=== PATIENT | male | born 1985 | race Caucasian/White ===

== ENCOUNTER 2016-10-11 07:44 | Emergency (ER) | payer BC, OTHER ==
[2016-10-11 07:48] VITALS: RESP 16
--- NOTE | 2016-10-11 08:38 | ED ---
Fall HPI - General Chief Complaint: Fall Stated Complaint: Seizure Time Seen by Provider: 10/11/16 08:02 Source: patient, EMS Mode of arrival: EMS - History of Present Illness Initial Comments: 30-year-old male patient with a past medical history significant for seizures presents to emergency department after experiencing a fall related to a seizure today. Patient generally has multiple seizures per day summer between 5 and 10 episodes. Today patient has had around 7 episodes. States that the seizures last anywhere from 15 seconds to 45 seconds. He states he did lose bladder control during one of the episodes. Last seizure patient was walking into the bathroom when the seizure began, he then fell forward hitting his face on a wooden chest. Seizure was done patient was conscious and alert. Does have a laceration to his right maxillary area. Patient is currently complaining of headache. He denies visual changes, dizziness, nausea, or vomiting. Has any chest pain, shortness of breath, weakness, diarrhea constipation, or urinary symptoms. States he has been taking his Vimpat and on the has directed. Recent illnesses or change in weight. His neurologist is from [place]. Patient has had multiple brain surgeries in the past in an attempt to find the cause of his seizures. Patient has a presurgical consultation scheduled sometime next week for another surgery. Patient admits to use of medical marijuana. Patient denies any recent alcohol or drug ingestion. - Related Data Home Medications Medication Instructions Recorded Confirmed Clobazam [Onfi] 15 mg PO BID 01/27/14 08/02/16 Albuterol Sulfate [Ventolin HFA] 2 puff INHALATION RT-Q4H PRN 11/10/14 08/02/16 Lacosamide [Vimpat] 200 mg PO AC-BID 08/02/16 08/02/16 Lacosamide [Vimpat] 400 mg PO HS 08/02/16 08/02/16 Pregabalin [Lyrica] 200 mg PO TID 08/02/16 08/02/16 clonazePAM [Clonazepam] 1 mg SUBLINGUAL Q4H PRN MDD 2 mg 08/02/16 08/02/16 Previous Rx's Medication Instructions Recorded Hydrocodone/Acetaminophen [[place] 1 tab PO Q6HR PRN #20 tab 10/11/16 5-325] Penicillin V Potassium [Pen Vee K] 500 mg PO QID #40 tab 10/11/16 Allergies Allergy/AdvReac Type Severity Reaction Status Date / Time levetiracetam [From Keppra] Allergy anger Verified 10/11/16 07:48 morphine Allergy palpitation Verified 10/11/16 07:48 s Review of Systems ROS Statement: Those systems with pertinent positive or pertinent negative responses have been documented in the HPI. ROS Other: All systems not noted in ROS Statement are negative. Past Medical History Past Medical History: Asthma, GERD/Reflux, Renal Disease, Seizure Disorder Additional Past Medical History / Comment(s): Nephrolithiasis, bilateral hand "knuckles fractured." History of Any Multi-Drug Resistant Organisms: None Reported Past Surgical History: No Surgical Hx Reported Additional Past Surgical History / Comment(s): 7 BRAIN SURGERIES incuding implants and impulse procedures done at [facility], bilateral myringotomy/tubes. Past Anesthesia/Blood Transfusion Reactions: No Reported Reaction Past Psychological History: Depression Additional Psychological History / Comment(s): Pt states his depression is stable. He resides with his mother. He has a 3 yr old tabby who he sees 4 times a week. Smoking Status: Current every day smoker Past Alcohol Use History: Occasional Past Drug Use History: Cocaine, Marijuana Additional Drug Use History / Comment(s): Pt states he smokes marijuana on occasion. He has past hx of cocaine use but none for years. - Past Family History Father Family Medical History: Myocardial Infarction ([place]) Additional Family Medical History / Comment(s): Father of a [place] at the age of 53 yrs. Mother Family Medical History: No Reported History General Exam Limitations: no limitations General appearance: alert, in no apparent distress Head exam: Present: other (Is in shape laceration noted over the right maxillary area approximately 2 and half centimeters in length) Eye exam: Present: normal appearance, PERRL Pupils: Present: normal accommodation ENT exam: Present: normal exam, normal oropharynx, mucous membranes moist, TM's normal bilaterally Neck exam: Present: normal inspection, full ROM. Absent: tenderness, meningismus, lymphadenopathy Respiratory exam: Present: normal lung sounds bilaterally. Absent: respiratory distress, wheezes, rales, rhonchi, chest wall tenderness Cardiovascular Exam: Present: regular rate, normal rhythm, normal heart sounds. Absent: bradycardia, tachycardia, irregular rhythm, systolic murmur, diastolic murmur, rubs, gallop GI/Abdominal exam: Present: soft, normal bowel sounds. Absent: distended, tenderness, guarding, rebound, rigid, organomegaly, mass Extremities exam: Present: normal inspection, full ROM, normal capillary refill. Absent: tenderness Back exam: Present: normal inspection, full ROM. Absent: tenderness, CVA tenderness (R), CVA tenderness (L) Neurological exam: Present: alert, oriented X3, CN II-XII intact Psychiatric exam: Present: normal affect, normal mood Skin exam: Present: warm, dry Course Vital Signs 10/11/16 07:45 Temperature 97.7 F Pulse Rate 85 Respiratory 16 Rate Blood Pressure 155/83 O2 Sat by Pulse 96 Oximetry Procedures - Laceration Laceration #1 Consent Obtained: verbal consent Time Out Performed: Yes Indication: laceration Site: face Size (cm): 3 Description: flap, clean Depth: simple, single layer Sedation/Analgesia: none Anesthetic Used: lidocaine 1% Anesthesia Technique: local infiltration Amount (mls): 5 Pre-repair: irrigated extensively Type of Sutures: nylon Size of Sutures: 6-0 Number of Sutures: 5 Technique: simple, interrupted Patient Tolerated Procedure: well, no complications Medical Decision Making - Medical Decision Making 30-year-old male present emergency department for seizure. Patient hasn't known history of seizures has multiple seizures every day. We did offer lab work, EKG though they declined at this time. Patient is taking his medications as directed. Patient's CT does not show any intracranial acute changes she has chronic changes. Patient has dental abscess noted on facial CT. Patient was started on antibiotics for this. Return parameters were discussed. His laceration was cleaned, closed with sutures. - Radiology Data Radiology results: report reviewed CT of the brain and C-spine revealed no acute intracranial abnormality. Stable extensive bifrontal craniotomy changes and left parietal craniectomy. Underlying left frontal lobe encephalomalacia is also unchanged. No acute fracture or malalignment of the cervical spine. Reversal of the normal cervical lordosis could be positional or due to muscle spasm. CT of the facial bones reveals extensive periodontal disease with large dental caries. Large focal periapical lucency/abscess involving the left mandibular first premolar eroding the anterior alveolar cortex. Second prominent periapical lucency/abscess involving the left maxillary first incisor which also erodes through the anterior alveolar cortex. Severe chronic right maxillary sinus disease. Disposition Clinical Impression: Seizure, Facial laceration, Dental abscess Disposition: HOME SELF-CARE Condition: Stable Instructions: Laceration (ED), Care For Your Stitches (ED) Additional Instructions: Have sutures removed in 7 days. Wash wound twice daily with soap and water.Please return to the Emergency Department if symptoms worsen or any other concerns. Prescriptions: Hydrocodone/Acetaminophen [[place] 5-325] 1 tab PO Q6HR PRN #20 tab PRN Reason: Pain Penicillin V Potassium [Pen Vee K] 500 mg PO QID #40 tab Referrals: Mazin Jay MD [Primary Care Provider] - 1-2 days
--- NOTE | 2016-10-11 09:13 | CT ---
EXAMINATION TYPE: CT brain blayneine wo con DATE OF EXAM: 10/11/2016 9:03 AM COMPARISON: 09/12/2015 HISTORY: 30-year-old male with seizures. History of 5-10 per day. Surgical history includes: titani um plates inserted. CT DLP: Head (1957.60) Body (363.40) mGycm Automated exposure control for dose reduction was used. Technique: Examination of the head was done in axial plane without intravenous contrast. Coronal and sagittal reconstructions performed. CT of the cervical spine was obtained in axial plane without intravenous injection of contrast mater ial. Coronal and sagittal reformatted images were obtained from the axial views for evaluation of f ractures, spinal alignment and canal. FINDINGS: Head: There is no evidence of acute intracranial hemorrhage, acute ischemic changes, mass, mass-effect, or extra-axial fluid collection. There is no effacement of cerebral sulci or basal subarachnoid cister ns. There is no hydrocephalus. There is no midline shift. Brooks-white matter distinction is preserv ed. Redemonstrated are extensive bifrontal craniotomy changes as well as left parietal craniectomy. Some packing material is again demonstrated along the frontal regions. Underlying area of encephalomalacia within the left frontal lobe is unchanged. Prominent cerumen within the left greater than right external auditory canals. Mastoid air cells well pneumatized. The facial bones will be reported separately. Cervical spine: The alignment of the cervical spine is normal on coronal and reformatted images. There is no cranial vertebral abnormality. Fracture of the cervical spine is not seen. Reversal of the normal cervical lo rdosis could be positional or due to muscle spasm. There is artifact from the patient's shoulders obs curing the spinal canal at the C6-C7 level and below. Within the visualized portions, there is no christal dence of focal disk herniation. There is no central spinal canal stenosis. Sagittal and coronal reformatted images confirm above findings. COMBINED IMPRESSION: 1. No acute intracranial abnormality seen. Stable extensive bifrontal craniotomy changes and left par ietal craniectomy. Underlying left frontal lobe encephalomalacia is also unchanged. 2. No acute fracture or malalignment of the cervical spine. Reversal of the normal cervical lordosis could be positional or due to muscle spasm.
--- NOTE | 2016-10-11 09:20 | CT ---
EXAMINATION TYPE: CT facial bones wo con DATE OF EXAM: 10/11/2016 9:03 AM COMPARISON: NONE HISTORY: 30-year-old male with pain TECHNIQUE: Contiguous high-resolution axial scanning of the facial bones without IV contrast. Coronal reconstructions performed. CT DLP: 1064.3 mGycm Automated exposure control for dose reduction was used. FINDINGS: There is a large periapical lucency involving the left mandibular first premolar eroding the anterior alveolar cortex. A second prominent periapical lucency is seen involving the left maxillary first incisor which also e rodes through the anterior alveolar cortex. Scattered prominent dental caries are present. Patient is partially dentulous. Chronic opacification of the right maxillary sinus. Trace mucosal thickening left maxillary sinus. Sc attered moderate mucosal thickening ethmoid air cells. No acute facial bone fracture seen. Orbits and globes appear intact. IMPRESSION: 1. EXTENSIVE PERIODONTAL DISEASE WITH LARGE DENTAL CARIES. 2. LARGE FOCAL PERIAPICAL LUCENCY/ABSCESS INVOLVING THE LEFT MANDIBULAR FIRST PREMOLAR ERODING THE AN TERIOR ALVEOLAR CORTEX. 3. SECOND PROMINENT PERIAPICAL LUCENCY/ABSCESS INVOLVING THE LEFT MAXILLARY FIRST INCISOR WHICH ALSO ERODES THROUGH THE ANTERIOR ALVEOLAR CORTEX. 4. SEVERE CHRONIC RIGHT MAXILLARY SINUS DISEASE.
[2016-10-11 09:57] VITALS: BP 119/56; PULSE 62; TEMP 97
== END 2016-10-11 09:57 | disposition home or self-care (01) ==
LOC: EC 07:44
DX: S01.81XA Laceration without foreign body of other part of head, initial encounter (principal); K04.7 Periapical abscess without sinus; J45.909 Unspecified asthma, uncomplicated; K21.9 Gastro-esophageal reflux disease without esophagitis; G40.909 Epilepsy, unspecified, not intractable, without status epilepticus; F32.9 Major depressive disorder, single episode, unspecified; F17.200 Nicotine dependence, unspecified, uncomplicated; Z79.899 Other long term (current) drug therapy; Z88.5 Allergy status to narcotic agent; Z88.8 Allergy status to other drugs, medicaments and biological substances; W01.198A Fall on same level from slipping, tripping and stumbling with subsequent striking against other object, initial encounter; Y93.01 Activity, walking, marching and hiking; Y92.89 Other specified places as the place of occurrence of the external cause
CPT/HCPCS: 12013; 70450; 70486; 72125; 99284

== ENCOUNTER 2016-10-16 08:39 | Emergency (ER) | payer OTHER ==
[2016-10-16 08:53] VITALS: PULSE 72
--- NOTE | 2016-10-16 09:59 | ED ---
Seizure HPI - General Chief Complaint: Seizure Stated Complaint: seizure Time Seen by Provider: 10/16/16 09:26 Source: patient, family, RN notes reviewed Mode of arrival: wheelchair Limitations: no limitations - History of Present Illness Initial Comments: Patient is a 30-year-old male presents to the emergency room for evaluation of recurrent seizures. Patient has a history of epilepsy. Patient was here 5 days ago due to a fall from a seizure. Patient states that he fell on his right cheek and received sutures. Patient states that he had a brain CT and facial CT and brain CT showed no acute intracranial bleeding. Patient's mother is present with patient. Patient's mother states that patient has been having more often recurrent seizures throughout the past few days. Patient's mother states that patient has been having multiple seizures starting at 2:30 in the morning. Patient states his last seizure was about an hour and a half ago. Patient's mother states that patient has been having a seizure about every few minutes. Patient's mother states this is not normal for patient. Patient's mother states that she is planning on taking patient to [facility] in [place] to see patients neurosurgeon today and have him admitted for further evaluation. Patient's mother states that she already called over to the hospital and they are expecting him later this afternoon. Patient states that he is still sore from his last injury 5 days ago. Patient denies any new injuries or head trauma. Patient states he takes his medications as directed daily. Patient denies any new medications or new doses of medications. - Related Data Home Medications Medication Instructions Recorded Confirmed Clobazam [Onfi] 15 mg PO BID 01/27/14 10/16/16 Albuterol Sulfate [Ventolin HFA] 2 puff INHALATION RT-Q4H PRN 11/10/14 10/16/16 Lacosamide [Vimpat] 200 mg PO DAILY@0800,1200 08/02/16 10/16/16 Lacosamide [Vimpat] 400 mg PO HS 08/02/16 10/16/16 Pregabalin [Lyrica] 200 mg PO TID 08/02/16 10/16/16 clonazePAM [Clonazepam] 1 mg SUBLINGUAL Q4H PRN MDD 2 mg 08/02/16 10/16/16 Previous Rx's Medication Instructions Recorded Hydrocodone/Acetaminophen [[place] 1 tab PO Q6HR PRN #20 tab 10/11/16 5-325] Penicillin V Potassium [Pen Vee K] 500 mg PO QID #40 tab 10/11/16 Allergies Allergy/AdvReac Type Severity Reaction Status Date / Time levetiracetam [From Kera] Allergy anger Verified 10/16/16 09:45 morphine Allergy palpitation Verified 10/16/16 09:45 s Review of Systems ROS Statement: Those systems with pertinent positive or pertinent negative responses have been documented in the HPI. ROS Other: All systems not noted in ROS Statement are negative. Past Medical History Past Medical History: Asthma, GERD/Reflux, Renal Disease, Seizure Disorder Additional Past Medical History / Comment(s): Nephrolithiasis, bilateral hand "knuckles fractured." History of Any Multi-Drug Resistant Organisms: None Reported Past Surgical History: No Surgical Hx Reported Additional Past Surgical History / Comment(s): 7 BRAIN SURGERIES incuding implants and impulse procedures done at [facility], bilateral myringotomy/tubes. Past Anesthesia/Blood Transfusion Reactions: No Reported Reaction Past Psychological History: Depression Additional Psychological History / Comment(s): Pt states his depression is stable. He resides with his mother. He has a 3 yr old tabby who he sees 4 times a week. Smoking Status: Current every day smoker Past Alcohol Use History: Occasional Past Drug Use History: Cocaine, Marijuana Additional Drug Use History / Comment(s): Pt states he smokes marijuana on occasion. He has past hx of cocaine use but none for years. - Past Family History Father Family Medical History: Myocardial Infarction ([place]) Additional Family Medical History / Comment(s): Father of a [place] at the age of 53 yrs. Mother Family Medical History: No Reported History General Exam - General Exam Comments Initial Comments: Sitting in exam room, no acute distress. Limitations: no limitations General appearance: alert, in no apparent distress Head exam: Present: normocephalic, normal inspection Expanded Head exam: Present: laceration (Healing laceration with sutures over the right cheekbone) Eye exam: Present: normal appearance, PERRL, EOMI Pupils: Present: normal accommodation ENT exam: Present: normal exam Neck exam: Present: normal inspection Respiratory exam: Present: normal lung sounds bilaterally. Absent: respiratory distress Cardiovascular Exam: Present: regular rate, normal rhythm, normal heart sounds Extremities exam: Present: normal inspection Back exam: Present: normal inspection Neurological exam: Present: alert, oriented X3, CN II-XII intact Psychiatric exam: Present: normal affect, normal mood Skin exam: Present: warm, dry, intact, normal color. Absent: rash Course Vital Signs 10/16/16 08:48 Temperature 97.8 F Pulse Rate 72 Respiratory 16 Rate Blood Pressure 123/83 O2 Sat by Pulse 96 Oximetry Medical Decision Making - Medical Decision Making Patient is a 30-year-old male presents emergency room for evaluation of recurrent seizures. Patient has not had one seizure since he has been here. Discussed repeat CT with patient and his mother. Patient declined repeat CT at this time and states that he will probably receive further imaging when he gets to [facility], in [place] in the afternoon. Patient's mother states that she is driving patient straight to [place] after patient is discharged from here. Patient and his mother state they understand everything that was discussed with them. Patient has no neuro deficits. Patient is stable and can be discharged. Return parameters discussed. Case discussed with Dr. Sorto. - Lab Data Result diagrams: 10/16/16 09:35 10/16/16 09:35 Lab Results 10/16/16 10/16/16 Range/Units 09:35 09:35 WBC 6.1 (3.8-10.6) k/uL RBC 4.87 (4.30-5.90) m/uL Hgb 15.4 (13.0-17.5) gm/dL Hct 45.5 (39.0-53.0) % MCV 93.4 (80.0-100.0) fL MCH 31.6 (25.0-35.0) pg MCHC 33.8 (31.0-37.0) g/dL RDW 13.7 (11.5-15.5) % Plt Count 242 (150-450) k/uL Neutrophils % 60 % Lymphocytes % 26 % Monocytes % 5 % Eosinophils % 5 % Basophils % 1 % Neutrophils # 3.7 (1.3-7.7) k/uL Lymphocytes # 1.6 (1.0-4.8) k/uL Monocytes # 0.3 (0-1.0) k/uL Eosinophils # 0.3 (0-0.7) k/uL Basophils # 0.0 (0-0.2) k/uL Sodium 144 (137-145) mmol/L Potassium 4.5 (3.5-5.1) mmol/L Chloride 104 (98-107) mmol/L Carbon Dioxide 31 H (22-30) mmol/L Anion Gap 9 mmol/L BUN 12 (9-20) mg/dL Creatinine 1.10 (0.66-1.25) mg/dL Est GFR (MDRD) Af Amer >60 (>60 ml/min/1.73 sqM) Est GFR (MDRD) Non-Af >60 (>60 ml/min/1.73 sqM) Glucose 91 (74-99) mg/dL Calcium 9.5 (8.4-10.2) mg/dL Total Bilirubin 0.4 (0.2-1.3) mg/dL AST 21 (17-59) U/L ALT 33 (21-72) U/L Alkaline Phosphatase 56 (38-126) U/L Total Protein 6.9 (6.3-8.2) g/dL Albumin 4.3 (3.5-5.0) g/dL Salicylates <1.0 mg/dL Acetaminophen <10.0 ug/mL Serum Alcohol <10 mg/dL 10/16/16 11:19 Normal sinus rhythm, ventricular rate 66 bpm, OR interval 146 ms, QRS duration 96 ms, QT/QTc 402/421 ms Disposition Clinical Impression: Epileptic seizure, Intractable seizure disorder Disposition: HOME SELF-CARE Condition: Good Instructions: Recurrent Seizures in Adults (ED) Additional Instructions: Please follow up with neurosurgeon. Continue taking prescribed medications as directed. If any new symptom arises or symptoms worsen, return to ER as soon as possible. Referrals: Mazin Jay MD [Primary Care Provider] - 1-2 days Time of Disposition: 11:07
[2016-10-16 10:06] LABS: Basophils % (A) 1 %; CHCM 35.5; Eosinophils # (A) 0.3 k/uL (0-0.7); Eosinophils % (A) 5 %; HCT 45.5 % (39.0-53.0); HDW 2.76; HGB 15.4 gm/dL (13.0-17.5); Luc # (Auto) 0.17; Luc % (Auto) 3; Lymphocytes # (A) 1.6 k/uL (1.0-4.8); Lymphocytes % (A) 26 %; MCH 31.6 pg (25.0-35.0); MCHC 33.8 g/dL (31.0-37.0); MCV 93.4 fL (80.0-100.0); Mean Platelet Volume 6.8; Monocytes # (A) 0.3 k/uL (0-1.0); Monocytes % (A) 5 %; Neutrophils # (A) 3.7 k/uL (1.3-7.7); Neutrophils % (A) 60 %; RBC 4.87 m/uL (4.30-5.90); RDW 13.7 % (11.5-15.5); WBC 6.1 k/uL (3.8-10.6); WBC (Perox) 6.06
[2016-10-16 10:14] LABS: ALT 33 U/L (21-72); AST 21 U/L (17-59); Acetaminophen <10.0 ug/mL; Alcohol <10 mg/dL; Alkaline Phosphatase 56 U/L (38-126); Anion Gap 9 mmol/L; Blood Urea Nitrogen 12 mg/dL (9-20); Calcium 9.5 mg/dL (8.4-10.2); Carbon Dioxide 31 mmol/L (22-30); Chloride 104 mmol/L (98-107); Glucose 91 mg/dL (74-99); Non-African American GFR(MDRD) >60 (>60 ml/min/1.73 sqM); Potassium 4.5 mmol/L (3.5-5.1); Salicylate <1.0 mg/dL; Sodium 144 mmol/L (137-145); Total Bilirubin 0.4 mg/dL (0.2-1.3); Total Protein 6.9 g/dL (6.3-8.2)
[2016-10-16 11:24] VITALS: BP 117/63; RESP 18; TEMP 97.1
== END 2016-10-16 11:25 | disposition home or self-care (01) ==
LOC: EC 08:39
DX: G40.919 Epilepsy, unspecified, intractable, without status epilepticus (principal); F32.9 Major depressive disorder, single episode, unspecified; F17.200 Nicotine dependence, unspecified, uncomplicated; Z79.899 Other long term (current) drug therapy; Z88.5 Allergy status to narcotic agent; Z88.8 Allergy status to other drugs, medicaments and biological substances
CPT/HCPCS: 36415; 80053; 80320; 80339; 80375; 83520; 85025; 93005; 99284

== ENCOUNTER 2016-12-24 07:38 | Emergency (ER) | payer OTHER ==
[2016-12-24] MEDS ORDERED: SODIUM CHLORIDE 0.9% 500 ML IV STA (07:44)
[2016-12-24] MEDS ORDERED: SODIUM CHLORIDE 0.9% 1,000 ML IV STA (07:44)
[2016-12-24 07:45] VITALS: TEMP 97.6
--- NOTE | 2016-12-24 07:46 | ED ---
Seizure HPI - General Chief Complaint: Seizure Stated Complaint: Seizure Time Seen by Provider: 12/24/16 07:38 Source: patient, RN notes reviewed Mode of arrival: EMS Limitations: no limitations - History of Present Illness Initial Comments: As this is a 31-year-old male with a history of seizure disorder and asthma who apparently has daily seizures but this morning he has seizures starting at about 6 AM and they would not stop. His mother gave him Klonopin it did not stop EMS was finally called he was given IV Versed is not any seizures since. Patient complains some generalized pain but no focal pain no headache blurry vision focal weakness nausea vomiting or other symptoms. No injuries were reported per EMS. MD Complaint: seizure - Related Data Home Medications Medication Instructions Recorded Confirmed Clobazam [Onfi] 15 mg PO BID 01/27/14 12/24/16 Albuterol Sulfate [Ventolin HFA] 2 puff INHALATION RT-Q4H PRN 11/10/14 12/24/16 Lacosamide [Vimpat] 200 mg PO DAILY@0800,1200 08/02/16 12/24/16 Lacosamide [Vimpat] 400 mg PO HS 08/02/16 12/24/16 Pregabalin [Lyrica] 200 mg PO TID 08/02/16 12/24/16 clonazePAM [Clonazepam] 1 mg SUBLINGUAL Q4H PRN MDD 2 mg 08/02/16 12/24/16 Divalproex Sodium [Depakote] 750 mg PO BID 12/24/16 12/24/16 Allergies Allergy/AdvReac Type Severity Reaction Status Date / Time levetiracetam [From [facility]] Allergy anger Verified 12/24/16 07:46 morphine Allergy palpitation Verified 12/24/16 07:46 s Review of Systems ROS Statement: Those systems with pertinent positive or pertinent negative responses have been documented in the HPI. ROS Other: All systems not noted in ROS Statement are negative. Past Medical History Past Medical History: Asthma, GERD/Reflux, Renal Disease, Seizure Disorder Additional Past Medical History / Comment(s): Nephrolithiasis, bilateral hand "knuckles fractured." History of Any Multi-Drug Resistant Organisms: None Reported Past Surgical History: Ear Surgery Additional Past Surgical History / Comment(s): 7 BRAIN SURGERIES incuding implants and impulse procedures done at [facility], bilateral myringotomy/tubes. Past Anesthesia/Blood Transfusion Reactions: No Reported Reaction Past Psychological History: Depression Additional Psychological History / Comment(s): Pt states his depression is stable. He resides with his mother. He has a 3 yr old tabby who he sees 4 times a week. Smoking Status: Current every day smoker Past Alcohol Use History: Occasional Past Drug Use History: Cocaine, Marijuana Additional Drug Use History / Comment(s): Pt states he smokes marijuana on occasion. He has past hx of cocaine use but none for years. - Past Family History Father Family Medical History: Myocardial Infarction ([place]) Additional Family Medical History / Comment(s): Father of a [place] at the age of 53 yrs. Mother Family Medical History: No Reported History General Exam - General Exam Comments Initial Comments: This is a well-developed well-nourished awake alert oriented times female Limitations: no limitations General appearance: alert, in no apparent distress Head exam: Present: atraumatic, normocephalic, normal inspection Eye exam: Present: normal appearance, PERRL, EOMI. Absent: scleral icterus, conjunctival injection, periorbital swelling ENT exam: Present: normal exam, mucous membranes moist Neck exam: Present: normal inspection. Absent: tenderness, meningismus, lymphadenopathy Respiratory exam: Present: normal lung sounds bilaterally. Absent: respiratory distress, wheezes, rales, rhonchi, stridor Cardiovascular Exam: Present: regular rate, normal rhythm, normal heart sounds. Absent: systolic murmur, diastolic murmur, rubs, gallop, clicks GI/Abdominal exam: Present: soft, normal bowel sounds. Absent: distended, tenderness, guarding, rebound, rigid Extremities exam: Present: normal inspection, full ROM, normal capillary refill. Absent: tenderness, pedal edema, joint swelling, calf tenderness Back exam: Present: normal inspection Neurological exam: Present: alert, oriented X3, CN II-XII intact Psychiatric exam: Present: normal affect, normal mood Skin exam: Present: warm, dry, intact, normal color. Absent: rash Course Vital Signs 12/24/16 12/24/16 07:41 07:52 Temperature 97.6 F 97.6 F Pulse Rate 77 75 Respiratory 18 16 Rate Blood Pressure 123/72 123/76 O2 Sat by Pulse 95 96 Oximetry - Reevaluation(s) Reevaluation #1: 12/24/16 07:46 The patient is a smoker we did discuss that he should stop smoking Medical Decision Making - Medical Decision Making The patient remains awake alert oriented 3 he was noted have a borderline potassium and subtherapeutic valproic acid level. He was given oral supplementation I did discuss the findings with him and his mother patient will be discharged is follow-up with his doctor and return when necessary - Lab Data Result diagrams: 12/24/16 07:48 12/24/16 07:48 Lab Results 12/24/16 12/24/16 12/24/16 Range/Units 07:48 07:48 07:48 WBC 5.1 (3.8-10.6) k/uL RBC 4.75 (4.30-5.90) m/uL Hgb 15.6 (13.0-17.5) gm/dL Hct 44.3 (39.0-53.0) % MCV 93.2 (80.0-100.0) fL MCH 32.7 (25.0-35.0) pg MCHC 35.1 (31.0-37.0) g/dL RDW 13.8 (11.5-15.5) % Plt Count 177 (150-450) k/uL Neutrophils % 57 % Lymphocytes % 28 % Monocytes % 7 % Eosinophils % 5 % Basophils % 0 % Neutrophils # 2.9 (1.3-7.7) k/uL Lymphocytes # 1.4 (1.0-4.8) k/uL Monocytes # 0.3 (0-1.0) k/uL Eosinophils # 0.3 (0-0.7) k/uL Basophils # 0.0 (0-0.2) k/uL Sodium 144 (137-145) mmol/L Potassium 3.5 (3.5-5.1) mmol/L Chloride 108 H (98-107) mmol/L Carbon Dioxide 25 (22-30) mmol/L Anion Gap 11 mmol/L BUN 13 (9-20) mg/dL Creatinine 0.95 (0.66-1.25) mg/dL Est GFR (MDRD) Af Amer >60 (>60 ml/min/1.73 sqM) Est GFR (MDRD) Non-Af >60 (>60 ml/min/1.73 sqM) Glucose 97 (74-99) mg/dL Calcium 9.1 (8.4-10.2) mg/dL Magnesium 2.0 (1.6-2.3) mg/dL Total Bilirubin 0.6 (0.2-1.3) mg/dL AST 37 (17-59) U/L ALT 42 (21-72) U/L Alkaline Phosphatase 46 (38-126) U/L Total Creatine Kinase 238 H (55-170) U/L CK-MB (CK-2) 1.2 (0.0-2.4) ng/mL CK-MB (CK-2) Rel Index 0.5 Total Protein 7.1 (6.3-8.2) g/dL Albumin 4.3 (3.5-5.0) g/dL Valproic Acid 48.3 ug/mL - EKG Data -: EKG Interpreted by Tn EKG shows normal: sinus rhythm Rate: bradycardia (Sinus bradycardia with a rate of 58 a DC interval 160 QRS duration 94 QT/QTC of 414/406 st-t wave changes.) Disposition Clinical Impression: Generalized seizure, Seizure secondary to subtherapeutic anticonvulsant medication Disposition: HOME SELF-CARE Condition: Good Instructions: Recurrent Seizures in Adults (ED) Referrals: Mazin Jay MD [Primary Care Provider] - 1-2 days
[2016-12-24 07:54] VITALS: RESP 16
[2016-12-24 08:21] LABS: Basophils % (A) 0 %; CHCM 35.6; Eosinophils # (A) 0.3 k/uL (0-0.7); Eosinophils % (A) 5 %; HCT 44.3 % (39.0-53.0); HDW 2.55; HGB 15.6 gm/dL (13.0-17.5); Luc # (Auto) 0.15; Luc % (Auto) 3; Lymphocytes # (A) 1.4 k/uL (1.0-4.8); Lymphocytes % (A) 28 %; MCH 32.7 pg (25.0-35.0); MCHC 35.1 g/dL (31.0-37.0); MCV 93.2 fL (80.0-100.0); Mean Platelet Volume 7.4; Monocytes # (A) 0.3 k/uL (0-1.0); Monocytes % (A) 7 %; Neutrophils # (A) 2.9 k/uL (1.3-7.7); Neutrophils % (A) 57 %; RBC 4.75 m/uL (4.30-5.90); RDW 13.8 % (11.5-15.5); WBC 5.1 k/uL (3.8-10.6); WBC (Perox) 4.87
[2016-12-24 08:45] LABS: Creatine Kinase MB 1.2 ng/mL (0.0-2.4)
[2016-12-24 09:08] LABS: ALT 42 U/L (21-72); AST 37 U/L (17-59); Alkaline Phosphatase 46 U/L (38-126); Anion Gap 11 mmol/L; Blood Urea Nitrogen 13 mg/dL (9-20); Calcium 9.1 mg/dL (8.4-10.2); Carbon Dioxide 25 mmol/L (22-30); Chloride 108 mmol/L (98-107); Glucose 97 mg/dL (74-99); Non-African American GFR(MDRD) >60 (>60 ml/min/1.73 sqM); Potassium 3.5 mmol/L (3.5-5.1); Sodium 144 mmol/L (137-145); Total Bilirubin 0.6 mg/dL (0.2-1.3); Total Protein 7.1 g/dL (6.3-8.2)
[2016-12-24] MEDS ORDERED: POTASSIUM CHLORIDE ER 20 MEQ TAB.ER PO STA (09:30)
[2016-12-24] MEDS ORDERED: DIVALPROEX 500 MG TABLET.DR PO STA (09:48)
[2016-12-24 10:08] VITALS: BP 109/58; PULSE 55
== END 2016-12-24 10:17 | disposition home or self-care (01) ==
LOC: EC 07:38
DX: G40.509 Epileptic seizures related to external causes, not intractable, without status epilepticus (principal); R52 Pain, unspecified; G40.909 Epilepsy, unspecified, not intractable, without status epilepticus; F32.9 Major depressive disorder, single episode, unspecified; F17.200 Nicotine dependence, unspecified, uncomplicated; Z79.899 Other long term (current) drug therapy; Z88.5 Allergy status to narcotic agent; Z88.8 Allergy status to other drugs, medicaments and biological substances
CPT/HCPCS: 36415; 80053; 80164; 82550; 82553; 83735; 85025; 93005; 96360; 96361; 99284

== ENCOUNTER 2017-01-14 07:33 | Emergency (ER) | payer OTHER ==
[2017-01-14 07:44] VITALS: TEMP 97.9
[2017-01-14] MEDS ORDERED: SODIUM CHLORIDE 0.9% 500 ML IV STA (08:13)
[2017-01-14] MEDS ORDERED: LORazepam 2 MG/ML SYRINGE IV STA (08:13)
--- NOTE | 2017-01-14 08:23 | ED ---
Seizure HPI - General Chief Complaint: Seizure Stated Complaint: Fall. Head Injury Time Seen by Provider: 01/14/17 08:10 Source: patient, RN notes reviewed Mode of arrival: ambulatory Limitations: no limitations - History of Present Illness Initial Comments: 31-year-old male presents to the emergency department with a chief complaint of seizure. Patient has had a history of seizures he has had multiple brain injuries and typically has one to 2 seizures a day. Patient states that today he hit his head when he was seizing they noticed within a noticed a flap without that he should be evaluated. Patient states he does have a headache at this time. Patient states she's having a seizure so doesn't know if he passed out or not. Patient states that it was much like his normal seizures. Patient denies any neck pain with this or any other discomfort. Patient states seems much like his typical seizure activity but due to the bleeding they thought that they should be evaluated. Patient denies any other pain or injury from this event. Patient denies any recent fever, chills, shortness of breath, chest pain, back pain, abdominal pain, nausea vomiting, numbness or tingling, dysuria or hematuria, constipation or diarrhea, visual changes, or any other current symptoms. - Related Data Home Medications Medication Instructions Recorded Confirmed Clobazam [Onfi] 15 mg PO BID 01/27/14 01/14/17 Albuterol Sulfate [Ventolin HFA] 2 puff INHALATION RT-Q4H PRN 11/10/14 01/14/17 Lacosamide [Vimpat] 200 mg PO DAILY@0800,1200 08/02/16 01/14/17 Lacosamide [Vimpat] 400 mg PO HS 08/02/16 01/14/17 Pregabalin [Lyrica] 200 mg PO TID 08/02/16 01/14/17 clonazePAM [Clonazepam] 1 mg SUBLINGUAL Q4H PRN MDD 2 mg 08/02/16 01/14/17 Divalproex Sodium [Depakote] 750 mg PO BID 12/24/16 01/14/17 Allergies Allergy/AdvReac Type Severity Reaction Status Date / Time brivaracetam [From Briviact] Allergy Unknown Verified 01/14/17 08:01 levetiracetam [From Keppra] Allergy anger Verified 01/14/17 08:01 morphine Allergy palpitation Verified 01/14/17 08:01 s Review of Systems ROS Statement: Those systems with pertinent positive or pertinent negative responses have been documented in the HPI. ROS Other: All systems not noted in ROS Statement are negative. Past Medical History Past Medical History: Asthma, GERD/Reflux, Renal Disease, Seizure Disorder Additional Past Medical History / Comment(s): Nephrolithiasis, bilateral hand "knuckles fractured." History of Any Multi-Drug Resistant Organisms: None Reported Past Surgical History: Ear Surgery Additional Past Surgical History / Comment(s): 7 BRAIN SURGERIES incuding implants and impulse procedures done at [facility], bilateral myringotomy/tubes. Past Anesthesia/Blood Transfusion Reactions: No Reported Reaction Past Psychological History: Depression Additional Psychological History / Comment(s): Pt states his depression is stable. He resides with his mother. He has a 3 yr old tabby who he sees 4 times a week. Smoking Status: Current every day smoker Past Alcohol Use History: Occasional Past Drug Use History: Cocaine, Marijuana Additional Drug Use History / Comment(s): Pt states he smokes marijuana on occasion. He has past hx of cocaine use but none for years. - Past Family History Father Family Medical History: Myocardial Infarction ([place]) Additional Family Medical History / Comment(s): Father of a [place] at the age of 53 yrs. Mother Family Medical History: No Reported History General Exam - General Exam Comments Initial Comments: General: The patient is awake and alert, in no distress, and does not appear acutely ill. Head: Patient appears to have a one centimeters laceration to the left forehead. Eye: Pupils are equal, round and reactive to light, extra-ocular movements are intact; there is normal conjunctiva bilaterally. No signs of icterus. Ears, nose, mouth and throat: There are moist mucous membranes and no oral lesions. Neck: The neck is supple, there is no tenderness. Cardiovascular: There is a regular rate and rhythm. No murmur, rub or gallop is appreciated. Respiratory: Lungs are clear to auscultation, respirations are non-labored, breath sounds are equal. No wheezes, stridor, rales, or rhonchi. Gastrointestinal: Soft, non-distended, non-tender abdomen without masses or organomegaly noted. There is no rebound or guarding present. No CVA tenderness. Bowel sounds are unremarkable. Back: There is no tenderness to palpation in the midline. There is no obvious deformity. No rashes noted. Musculoskeletal: Normal ROM, no tenderness, There is no pedal edema. There is no calf tenderness or swelling. Sensation intact. Pulses equal bilaterally 2+. Neurological: CN II-XII intact, There are no obvious motor or sensory deficits. Coordination appears grossly intact. Speech is normal. Skin: Skin is warm and dry and no rashes or lesions are noted. Psychiatric: Cooperative, appropriate mood & affect, normal judgment. Limitations: no limitations Course Vital Signs 01/14/17 07:38 Temperature 97.9 F Pulse Rate 85 Respiratory 20 Rate Blood Pressure 117/71 O2 Sat by Pulse 98 Oximetry Procedures - Procedures Initial comment: The skin was anesthetized with 1% lidocaine. The laceration was then cleansed with Betadine and irrigated with normal saline. The wound was inspected, and there was no evidence of injury to deep structures. No foreign body was noted in the wound. A total of 3 skin sutures were placed utilizing 6-0 nylon to a 2 cm flap laceration of the left forehead.. Medical Decision Making - Medical Decision Making 31-year-old male presents to the emergency department with a chief complaint of seizure. Patient has a history of seizures and states is much like his normal seizure activity. Patient is complaining of a headache that he did have head trauma during the seizure. At this time CAT scan is reviewed and negative laboratory otherwise well. This is typical of the patient's seizures activity. Patient went laceration repair. We discussed Follow-up return parameters and all patient's questions. He stated the Sameer they're in agreement with plan. They will be discharged. - Lab Data Result diagrams: 01/14/17 08:00 01/14/17 08:00 Lab Results 01/14/17 01/14/17 Range/Units 08:00 08:00 WBC 6.6 (3.8-10.6) k/uL RBC 4.91 (4.30-5.90) m/uL Hgb 16.1 (13.0-17.5) gm/dL Hct 47.3 (39.0-53.0) % MCV 96.3 (80.0-100.0) fL MCH 32.8 (25.0-35.0) pg MCHC 34.0 (31.0-37.0) g/dL RDW 14.5 (11.5-15.5) % Plt Count 247 (150-450) k/uL Neutrophils % 55 % Lymphocytes % 29 % Monocytes % 9 % Eosinophils % 4 % Basophils % 2 % Neutrophils # 3.6 (1.3-7.7) k/uL Lymphocytes # 1.9 (1.0-4.8) k/uL Monocytes # 0.6 (0-1.0) k/uL Eosinophils # 0.3 (0-0.7) k/uL Basophils # 0.1 (0-0.2) k/uL Sodium 143 (137-145) mmol/L Potassium 4.3 (3.5-5.1) mmol/L Chloride 104 (98-107) mmol/L Carbon Dioxide 30 (22-30) mmol/L Anion Gap 9 mmol/L BUN 17 (9-20) mg/dL Creatinine 1.10 (0.66-1.25) mg/dL Est GFR (MDRD) Af Amer >60 (>60 ml/min/1.73 sqM) Est GFR (MDRD) Non-Af >60 (>60 ml/min/1.73 sqM) Glucose 96 (74-99) mg/dL Calcium 9.8 (8.4-10.2) mg/dL Total Bilirubin 0.5 (0.2-1.3) mg/dL AST 25 (17-59) U/L ALT 38 (21-72) U/L Alkaline Phosphatase 52 (38-126) U/L Total Protein 7.7 (6.3-8.2) g/dL Albumin 4.7 (3.5-5.0) g/dL - Radiology Data Radiology results: report reviewed, image reviewed Disposition Clinical Impression: Seizure disorder, Forehead laceration Disposition: HOME SELF-CARE Condition: Stable Instructions: Recurrent Seizures in Adults (ED) Additional Instructions: Please use medication as discussed. Please follow up with family doctor if symptoms have not improved over the next two days. Please return to the emergency room if your symptoms increase or worsen or for any other concerns. Please return to the emergency room in 5 days to have sutures removed. Please leave wound covered for the first 24-48 hours and then leave open to air after that time. Please use clean soap and water to clean the suture area to prevent scabbing over the top of your sutures. Please watch for any signs of infection which may include but not limited to increased pain, swelling, redness, fever or chills. Please return to the emergency room if any signs of infection do occur. Please return to the emergency room for any other concerns or complications. Referrals: Mazin Jay MD [Primary Care Provider] - 1-2 days Time of Disposition: 09:18
[2017-01-14 08:32] LABS: Basophils # (A) 0.1 k/uL (0-0.2); Basophils % (A) 2 %; CH 33.3; CHCM 34.8; Eosinophils # (A) 0.3 k/uL (0-0.7); Eosinophils % (A) 4 %; HCT 47.3 % (39.0-53.0); HDW 2.57; HGB 16.1 gm/dL (13.0-17.5); Luc # (Auto) 0.15; Luc % (Auto) 2; Lymphocytes # (A) 1.9 k/uL (1.0-4.8); Lymphocytes % (A) 29 %; MCH 32.8 pg (25.0-35.0); MCV 96.3 fL (80.0-100.0); Mean Platelet Volume 7.4; Monocytes # (A) 0.6 k/uL (0-1.0); Monocytes % (A) 9 %; Neutrophils # (A) 3.6 k/uL (1.3-7.7); Neutrophils % (A) 55 %; RBC 4.91 m/uL (4.30-5.90); RDW 14.5 % (11.5-15.5); WBC 6.6 k/uL (3.8-10.6); WBC (Perox) 5.95
[2017-01-14 08:48] LABS: ALT 38 U/L (21-72); AST 25 U/L (17-59); Alkaline Phosphatase 52 U/L (38-126); Anion Gap 9 mmol/L; Blood Urea Nitrogen 17 mg/dL (9-20); Calcium 9.8 mg/dL (8.4-10.2); Carbon Dioxide 30 mmol/L (22-30); Chloride 104 mmol/L (98-107); Glucose 96 mg/dL (74-99); Non-African American GFR(MDRD) >60 (>60 ml/min/1.73 sqM); Potassium 4.3 mmol/L (3.5-5.1); Sodium 143 mmol/L (137-145); Total Bilirubin 0.5 mg/dL (0.2-1.3); Total Protein 7.7 g/dL (6.3-8.2)
--- NOTE | 2017-01-14 08:53 | CT ---
EXAMINATION TYPE: CT brain wo con DATE OF EXAM: 01/14/2017 COMPARISON: October 11, 2016 HISTORY: Seizure activity CT DLP: 1029.90 mGycm Automated exposure control for dose reduction was used. FINDINGS: No acute intracranial abnormality is seen. Redemonstrated extensive bifrontal craniotomy changes, left parietal craniectomy, underlying left fro ntal lobe encephalomalacia, and opacification of the right maxillary sinus. IMPRESSION: No acute intracranial hemorrhage, mass effect, or midline shift is seen.
[2017-01-14 09:31] VITALS: BP 105/64; PULSE 72; RESP 18
== END 2017-01-14 09:38 | disposition home or self-care (01) ==
LOC: EC 07:33
DX: S01.81XA Laceration without foreign body of other part of head, initial encounter (principal); G40.909 Epilepsy, unspecified, not intractable, without status epilepticus; K21.9 Gastro-esophageal reflux disease without esophagitis; F32.9 Major depressive disorder, single episode, unspecified; F17.200 Nicotine dependence, unspecified, uncomplicated; Z79.899 Other long term (current) drug therapy; Z88.5 Allergy status to narcotic agent; Z88.8 Allergy status to other drugs, medicaments and biological substances; W22.8XXA Striking against or struck by other objects, initial encounter
CPT/HCPCS: 12011 ×2; 96374 ×2; 99284 ×2; 12013; 96365; 96375; 99285; 36415; 80164; 80053; 85025; 70450; J2060; J1170

== ENCOUNTER 2017-01-14 12:25 | Emergency (ER) | payer OTHER ==
[2017-01-14] MEDS ORDERED: LORazepam 2 MG/ML SYRINGE IV STA (12:43)
[2017-01-14] MEDS ORDERED: LIDOCAINE/EPINEPHR/TETRACAINE 5 ML BOTTLE TOPICAL ONE (12:44)
--- NOTE | 2017-01-14 12:50 | ED ---
Seizure HPI - General Chief Complaint: Seizure Stated Complaint: seizure Time Seen by Provider: 01/14/17 12:38 Source: EMS, RN notes reviewed Mode of arrival: EMS Limitations: no limitations - History of Present Illness Initial Comments: 31-year-old male presents emergency Department with a chief complaint of right eyebrow injury. Patient had a seizure today much like his typical seizures and he hit his head on the bathroom floor. Patient states that he has no headache he denies any neck pain. He states he only has pain to the area where he hit his head. Patient states that he has had seizures for very long time and can figure out why he is having the seizures. patient states he has been using all his medications as prescribed. patient states she was concerned due to his continued seizures and head injury he thought that he should be evaluated. Patient denies any recent fever, chills, shortness of breath, chest pain, back pain, abdominal pain, nausea vomiting, numbness or tingling, dysuria or hematuria, constipation or diarrhea, headaches or visual changes, or any other current symptoms. - Related Data Home Medications Medication Instructions Recorded Confirmed Clobazam [Onfi] 15 mg PO BID 01/27/14 01/14/17 Albuterol Sulfate [Ventolin HFA] 2 puff INHALATION RT-Q4H PRN 11/10/14 01/14/17 Lacosamide [Vimpat] 200 mg PO DAILY@0800,1200 08/02/16 01/14/17 Lacosamide [Vimpat] 400 mg PO HS 08/02/16 01/14/17 Pregabalin [Lyrica] 200 mg PO TID 08/02/16 01/14/17 clonazePAM [Clonazepam] 1 mg SUBLINGUAL Q4H PRN MDD 2 mg 08/02/16 01/14/17 Divalproex Sodium [Depakote] 750 mg PO BID 12/24/16 01/14/17 Allergies Allergy/AdvReac Type Severity Reaction Status Date / Time brivaracetam [From Briviact] Allergy Unknown Verified 01/14/17 12:33 levetiracetam [From Keppra] Allergy anger Verified 01/14/17 12:33 morphine Allergy palpitation Verified 01/14/17 12:33 s Review of Systems ROS Statement: Those systems with pertinent positive or pertinent negative responses have been documented in the HPI. ROS Other: All systems not noted in ROS Statement are negative. Past Medical History Past Medical History: Asthma, GERD/Reflux, Renal Disease, Seizure Disorder Additional Past Medical History / Comment(s): Nephrolithiasis, bilateral hand "knuckles fractured." History of Any Multi-Drug Resistant Organisms: None Reported Past Surgical History: Ear Surgery Additional Past Surgical History / Comment(s): 7 BRAIN SURGERIES incuding implants and impulse procedures done at [facility], bilateral myringotomy/tubes. Past Anesthesia/Blood Transfusion Reactions: No Reported Reaction Past Psychological History: Depression Additional Psychological History / Comment(s): Pt states his depression is stable. He resides with his mother. He has a 3 yr old tabby who he sees 4 times a week. Smoking Status: Current every day smoker Past Alcohol Use History: Occasional Past Drug Use History: Cocaine, Marijuana Additional Drug Use History / Comment(s): Pt states he smokes marijuana on occasion. He has past hx of cocaine use but none for years. - Past Family History Father Family Medical History: Myocardial Infarction ([place]) Additional Family Medical History / Comment(s): Father of a [place] at the age of 53 yrs. Mother Family Medical History: No Reported History General Exam Limitations: no limitations General appearance: alert, in no apparent distress Head exam: Present: atraumatic, normocephalic. Absent: normal inspection (she appears patient has a 3 cm laceration above the right forehead multiple scars to the face. Previously sewn laceration to the left side of forehead) Eye exam: Present: normal appearance, PERRL, EOMI. Absent: scleral icterus, conjunctival injection, periorbital swelling ENT exam: Present: normal exam, mucous membranes moist Respiratory exam: Present: normal lung sounds bilaterally. Absent: respiratory distress, wheezes, rales, rhonchi, stridor Cardiovascular Exam: Present: regular rate, normal rhythm, normal heart sounds. Absent: systolic murmur, diastolic murmur, rubs, gallop, clicks Extremities exam: Present: normal inspection, full ROM, normal capillary refill. Absent: tenderness, pedal edema, joint swelling, calf tenderness Back exam: Present: normal inspection Neurological exam: Present: alert, oriented X3 Psychiatric exam: Present: normal affect, normal mood Course Vital Signs 06/01/14/17 01/14/17 12:26 13:57 15:02 Temperature 97.8 F Pulse Rate 65 68 50 L Respiratory 20 18 18 Rate Blood Pressure 123/58 112/70 124/84 O2 Sat by Pulse 98 97 95 Oximetry - Reevaluation(s) Reevaluation #1: 01/14/17 15:10 Patient continues have seizure-like episodes. They are consistent with pseudoseizures however when talking patient's neurologist with the patient's seizure-like activity. At this time medication was given. We will Transfer. Procedures - Procedures Initial comment: The skin was anesthetized with 1% lidocaine. The laceration was then cleansed with Betadine and irrigated with normal saline. The wound was inspected, and there was no evidence of injury to deep structures. No foreign body was noted in the wound. A total of 7 skin sutures were placed utilizing 6-0 nylon to a 3 cm laceration to the right eyebrow Medical Decision Making - Medical Decision Making 31-year-old male presents emergency Department chief complaint of seizure. At this time the case is discussed with patient's mother states he's had 30-40 seizures in the past few days. Patient's Depakote level is in appropriate range at this time. At this time we did call and speak with the patient's neurologist Dr. Padilla. At this time he is [facility] [place] He is requesting that we give the patient a dose of Depacon. He did request 1500 mg however when reviewing the patient's medication that he states he's been taking his only been taking 750 mg. At this time this is over the recommended maximum dose and I did talk until getting this dose. We did discuss with the doctor that he needs only gave half the dose that the doctor wanted we discussed the to get the additional dose when he arrives. They are in agreement with plan. The patient is in agreement with transfer. This time we will transfer the patient. - Lab Data Lab Results 01/14/17 Range/Units 13:15 Valproic Acid 59.5 ug/mL Disposition Clinical Impression: Epileptic seizure, Facial laceration Disposition: OTHER INSTITUTION NOT DEFINED Referrals: Mazin Jay MD [Primary Care Provider] - 1-2 days - Out of Hospital Transfer - Req. Specs Out of Hospital Transfer - Requested Specifics: Other Non-Acute (direct admission [facility])
[2017-01-14 14:08] VITALS: RESP 18
[2017-01-14] MEDS ORDERED: VALPROATE SODIUM 750 MG in SODIUM CHLORIDE 0.9% 50 ML IVPB STA (14:37)
[2017-01-14 15:05] VITALS: BP 124/84; PULSE 50
[2017-01-14] MEDS ORDERED: HYDROmorphone 1 MG/ML 1 ML SYRINGE IVP STA (16:29)
[2017-01-14 16:51] VITALS: TEMP 97.5
== END 2017-01-14 16:51 | disposition short-term general hospital (02) ==
LOC: EC 12:25
DX: S01.111A Laceration without foreign body of right eyelid and periocular area, initial encounter (principal); G40.909 Epilepsy, unspecified, not intractable, without status epilepticus; F32.9 Major depressive disorder, single episode, unspecified; F17.200 Nicotine dependence, unspecified, uncomplicated; Z79.899 Other long term (current) drug therapy; Z88.5 Allergy status to narcotic agent; Z88.8 Allergy status to other drugs, medicaments and biological substances; W22.09XA Striking against other stationary object, initial encounter; Y92.89 Other specified places as the place of occurrence of the external cause
CPT/HCPCS: 99285; 12013; 96365; 96375 ×2; 36415; 80164; J2060; J1170

== ENCOUNTER 2017-01-23 11:24 | Emergency (ER) | payer OTHER ==
[2017-01-23] MEDS ORDERED: SODIUM CHLORIDE 0.9% 1,000 ML IV STA (12:02)
[2017-01-23] MEDS ORDERED: HYDROmorphone 1 MG/ML 1 ML SYRINGE IVP STA (12:03)
--- NOTE | 2017-01-23 12:16 | ED ---
Seizure HPI - General Chief Complaint: Seizure Stated Complaint: seizures Time Seen by Provider: 01/23/17 11:32 Source: patient, EMS, RN notes reviewed Mode of arrival: EMS Limitations: no limitations - History of Present Illness Initial Comments: Patient is a 31-year-old male presents emergency room for evaluation of seizure. Patient has a long-standing history of recurrent seizures. Patient states while he was getting his daughter's car seat in the car he had a seizure , fell backwards hitting his back and head on the cement. Patient states he's had about 50-60 seizures today. Patient's mother is present with patient. Patient's mother states that patient has been on every type of seizure medication possible. Patient's mother states that he was transferred out to [place] about a week ago. Patient's mother states that patient was on Depakote but they discontinued it and placed patient on higher dose of Lyrica. Patient states he has multiple types of seizures per day. Patient states he has a history of tonic clonic seizures and focal seizures. Patient states he's having 8 out of 10 lower back pain. Patient states pain is worse when he presses over his lower back. Patient denies paresthesias. Patient denies fecal incontinence. Patient denies saddle anesthesia. Patient states having 9 out of 10 head pain. Patient states he has 2 large lumps the back of his head where he hit the cement. - Related Data Home Medications Medication Instructions Recorded Confirmed Clobazam [Onfi] 15 mg PO BID 01/27/14 01/23/17 Albuterol Sulfate [Ventolin HFA] 2 puff INHALATION RT-Q4H PRN 11/10/14 01/23/17 Lacosamide [Vimpat] 200 mg PO DAILY@0800,1200 08/02/16 01/23/17 Lacosamide [Vimpat] 400 mg PO HS 08/02/16 01/23/17 Pregabalin [Lyrica] 200 mg PO TID 08/02/16 01/23/17 clonazePAM [Clonazepam] 1 mg SUBLINGUAL Q4H PRN MDD 2 mg 08/02/16 01/23/17 Previous Rx's Medication Instructions Recorded HYDROcodone/APAP 5-325MG [Sh[place] 1 tab PO Q6HR PRN #12 tab 01/23/17 5-325] Allergies Allergy/AdvReac Type Severity Reaction Status Date / Time brivaracetam [From Briviact] Allergy Unknown Verified 01/23/17 11:45 levetiracetam [From Keppra] AdvReac anger Verified 01/23/17 11:45 morphine AdvReac palpitation Verified 01/23/17 11:45 s Review of Systems ROS Statement: Those systems with pertinent positive or pertinent negative responses have been documented in the HPI. ROS Other: All systems not noted in ROS Statement are negative. Past Medical History Past Medical History: Asthma, GERD/Reflux, Renal Disease, Seizure Disorder Additional Past Medical History / Comment(s): Nephrolithiasis, bilateral hand "knuckles fractured." History of Any Multi-Drug Resistant Organisms: None Reported Past Surgical History: Ear Surgery Additional Past Surgical History / Comment(s): 7 BRAIN SURGERIES incuding implants and impulse procedures done at [facility], bilateral myringotomy/tubes. Past Anesthesia/Blood Transfusion Reactions: No Reported Reaction Past Psychological History: Depression Smoking Status: Current every day smoker Past Alcohol Use History: Occasional Past Drug Use History: Cocaine, Marijuana - Past Family History Father Family Medical History: Myocardial Infarction ([place]) Additional Family Medical History / Comment(s): Father of a [place] at the age of 53 yrs. Mother Family Medical History: No Reported History General Exam - General Exam Comments Initial Comments: Sitting in exam room, no acute distress. Limitations: no limitations General appearance: alert, in no apparent distress Expanded Head exam: Present: hematoma (2 hematomas on the back of the scalp.) Eye exam: Present: normal appearance, PERRL, EOMI Pupils: Present: normal accommodation ENT exam: Present: normal exam Neck exam: Present: normal inspection, full ROM. Absent: tenderness, lymphadenopathy Respiratory exam: Present: normal lung sounds bilaterally. Absent: respiratory distress Cardiovascular Exam: Present: regular rate, normal rhythm, normal heart sounds Extremities exam: Present: normal inspection, full ROM. Absent: tenderness Back exam: Present: vertebral tenderness (Tenderness and swelling on palpating over thoracic and lumbosacral spine) Neurological exam: Present: alert, oriented X3 Expanded Patient oriented to: Present: person, place, time Speech: Present: fluid speech Cranial nerves: EOM's Intact: Normal Sensory exam: Upper Extremity Light Touch: Normal, Lower Extremity Light Touch: Normal Motor strength exam: RUE: 5, LUE: 5, RLE: 5, LLE: 5 Eye Response: (4) open spontaneously Motor Response: (6) obeys commands Verbal Response: (5) oriented Psychiatric exam: Present: normal affect, normal mood Skin exam: Present: warm, normal color Course Vital Signs 01/23/17 01/23/17 01/23/17 11:29 12:08 13:45 Temperature 97.5 F L 98.1 F Pulse Rate 67 72 53 L Respiratory 18 17 18 Rate Blood Pressure 166/108 122/77 130/85 O2 Sat by Pulse 92 L 99 94 L Oximetry 01/23/17 01/23/17 01/23/17 14:32 16:19 16:56 Temperature 98.5 F 98.2 F 97.6 F Pulse Rate 59 L 69 Respiratory 17 18 18 Rate Blood Pressure 160/99 109/57 O2 Sat by Pulse 97 95 95 Oximetry Medical Decision Making - Medical Decision Making Patient is a 31-year-old male presents to the emergency room for evaluation of seizure. Patient has a history of seizures. Patient had over 200 seizures today. Patient given 1 mg of Ativan with no relief of seizures. Brain/c-spine CT negative for any acute findings. Spinal x-rays negative for any acute findings. Patient's neurologist, Dr. Quinonez was contacted. Dr. Quinonez's nurse, Mattie return the phone call and was advised to give patient IV Depakote 1500 mg 1 time is to discharge patient home. Patient advised to call their office either this afternoon or tomorrow. Patient and mother state they understand everything that was discussed with them. Return parameters discussed. Case discussed Dr. Goetz. - Lab Data Result diagrams: 01/23/17 11:27 01/23/17 11:27 Lab Results 01/23/17 01/23/17 01/23/17 Range/Units 11:27 11:27 12:16 WBC 6.8 (3.8-10.6) k/uL RBC 4.82 (4.30-5.90) m/uL Hgb 15.6 (13.0-17.5) gm/dL Hct 46.5 (39.0-53.0) % MCV 96.5 (80.0-100.0) fL MCH 32.5 (25.0-35.0) pg MCHC 33.7 (31.0-37.0) g/dL RDW 14.3 (11.5-15.5) % Plt Count 224 (150-450) k/uL Neutrophils % 57 % Lymphocytes % 32 % Monocytes % 6 % Eosinophils % 2 % Basophils % 1 % Neutrophils # 3.9 (1.3-7.7) k/uL Lymphocytes # 2.2 (1.0-4.8) k/uL Monocytes # 0.4 (0-1.0) k/uL Eosinophils # 0.1 (0-0.7) k/uL Basophils # 0.0 (0-0.2) k/uL Sodium 144 (137-145) mmol/L Potassium 4.2 (3.5-5.1) mmol/L Chloride 109 H (98-107) mmol/L Carbon Dioxide 25 (22-30) mmol/L Anion Gap 10 mmol/L BUN 7 L (9-20) mg/dL Creatinine 0.88 (0.66-1.25) mg/dL Est GFR (MDRD) Af Amer >60 (>60 ml/min/1.73 sqM) Est GFR (MDRD) Non-Af >60 (>60 ml/min/1.73 sqM) Glucose 90 (74-99) mg/dL POC Glucose (mg/dL) 96 (75-99) mg/dL POC Glu Capacity Management Specialist ID Maday Lamas Calcium 9.5 (8.4-10.2) mg/dL Total Bilirubin 0.5 (0.2-1.3) mg/dL AST 30 (17-59) U/L ALT 37 (21-72) U/L Alkaline Phosphatase 51 (38-126) U/L Total Protein 7.3 (6.3-8.2) g/dL Albumin 4.5 (3.5-5.0) g/dL Urine Color Urine Appearance (Clear) Urine pH (5.0-8.0) Ur Specific [place] (1.001-1.035) Urine Protein (Negative) Urine Glucose (UA) (Negative) Urine Ketones (Negative) Urine Blood (Negative) Urine Nitrite (Negative) Urine Bilirubin (Negative) Urine Urobilinogen (<2.0) mg/dL Ur Leukocyte Esterase (Negative) Urine Opiates Screen (NotDetected) Ur Oxycodone Screen (NotDetected) Urine Methadone Screen (NotDetected) Ur Propoxyphene Screen (NotDetected) Ur Barbiturates Screen (NotDetected) U Tricyclic Antidepress (NotDetected) Ur Phencyclidine Scrn (NotDetected) Ur Amphetamines Screen (NotDetected) U Methamphetamines Scrn (NotDetected) U Benzodiazepines Scrn (NotDetected) Urine Cocaine Screen (NotDetected) U Marijuana (THC) Screen (NotDetected) 01/23/17 Range/Units 12:17 WBC (3.8-10.6) k/uL RBC (4.30-5.90) m/uL Hgb (13.0-17.5) gm/dL Hct (39.0-53.0) % MCV (80.0-100.0) fL MCH (25.0-35.0) pg MCHC (31.0-37.0) g/dL RDW (11.5-15.5) % Plt Count (150-450) k/uL Neutrophils % % Lymphocytes % % Monocytes % % Eosinophils % % Basophils % % Neutrophils # (1.3-7.7) k/uL Lymphocytes # (1.0-4.8) k/uL Monocytes # (0-1.0) k/uL Eosinophils # (0-0.7) k/uL Basophils # (0-0.2) k/uL Sodium (137-145) mmol/L Potassium (3.5-5.1) mmol/L Chloride (98-107) mmol/L Carbon Dioxide (22-30) mmol/L Anion Gap mmol/L BUN (9-20) mg/dL Creatinine (0.66-1.25) mg/dL Est GFR (MDRD) Af Amer (>60 ml/min/1.73 sqM) Est GFR (MDRD) Non-Af (>60 ml/min/1.73 sqM) Glucose (74-99) mg/dL POC Glucose (mg/dL) (75-99) mg/dL POC Glu Capacity Management Specialist ID Calcium (8.4-10.2) mg/dL Total Bilirubin (0.2-1.3) mg/dL AST (17-59) U/L ALT (21-72) U/L Alkaline Phosphatase (38-126) U/L Total Protein (6.3-8.2) g/dL Albumin (3.5-5.0) g/dL Urine Color Light Yellow Urine Appearance Clear (Clear) Urine pH 7.0 (5.0-8.0) Ur Specific [place] 1.004 (1.001-1.035) Urine Protein Negative (Negative) Urine Glucose (UA) Negative (Negative) Urine Ketones Negative (Negative) Urine Blood Negative (Negative) Urine Nitrite Negative (Negative) Urine Bilirubin Negative (Negative) Urine Urobilinogen <2.0 (<2.0) mg/dL Ur Leukocyte Esterase Negative (Negative) Urine Opiates Screen Not Detected (NotDetected) Ur Oxycodone Screen Not Detected (NotDetected) Urine Methadone Screen Not Detected (NotDetected) Ur Propoxyphene Screen Not Detected (NotDetected) Ur Barbiturates Screen Detected H (NotDetected) U Tricyclic Antidepress Not Detected (NotDetected) Ur Phencyclidine Scrn Not Detected (NotDetected) Ur Amphetamines Screen Not Detected (NotDetected) U Methamphetamines Scrn Not Detected (NotDetected) U Benzodiazepines Scrn Detected H (NotDetected) Urine Cocaine Screen Not Detected (NotDetected) U Marijuana (THC) Screen Detected H (NotDetected) 01/23/17 12:50 Normal sinus rhythm with sinus arrhythmia, ventricular rate 64 bpm, CT interval 144 ms, QRS duration 94 ms, QT/QTC 384/396 ms - Radiology Data Radiology results: report reviewed, image reviewed Disposition Clinical Impression: Epileptic seizure, Intractable seizure disorder, Head injury, Hematoma, Contusion of tissue overlying spine Disposition: HOME SELF-CARE Condition: Good Instructions: Head Injury (ED), Contusion in Adults (ED), Recurrent Seizures in Adults (ED), Hematoma (ED) Additional Instructions: Continue taking Lyrica as prescribed. Please follow-up with neurologist. If any new symptom arises or symptoms worsen, return to ER as soon as possible. Prescriptions: HYDROcodone/APAP 5-325MG [[place] 5-325] 1 tab PO Q6HR PRN #12 tab PRN Reason: Pain Referrals: Mazin Jay MD [Primary Care Provider] - 1-2 days Time of Disposition: 15:55
[2017-01-23 12:27] LABS: Appearance,Urine Clear (Clear); Bilirubin,Urine Negative (Negative); Glucose,Urine (UA) Negative (Negative); Ketones,Urine Negative (Negative); Leukocyte Esterase,Urine Negative (Negative); Nitrite,Urine Negative (Negative); Protein,Urine Negative (Negative); Specific Gravity,Urine 1.004 (1.001-1.035); UA Billing (MACRO vs. MICRO) CHEM; Urobilinogen,Urine <2.0 mg/dL (<2.0)
[2017-01-23 12:27] LABS: Glucose,Whole Blood 96 mg/dL (75-99)
[2017-01-23 12:32] LABS: Basophils % (A) 1 %; CH 33.7; CHCM 35.1; Eosinophils # (A) 0.1 k/uL (0-0.7); Eosinophils % (A) 2 %; HCT 46.5 % (39.0-53.0); HDW 2.66; HGB 15.6 gm/dL (13.0-17.5); Luc # (Auto) 0.16; Luc % (Auto) 2; Lymphocytes # (A) 2.2 k/uL (1.0-4.8); Lymphocytes % (A) 32 %; MCH 32.5 pg (25.0-35.0); MCHC 33.7 g/dL (31.0-37.0); MCV 96.5 fL (80.0-100.0); Mean Platelet Volume 7.8; Monocytes # (A) 0.4 k/uL (0-1.0); Monocytes % (A) 6 %; Neutrophils # (A) 3.9 k/uL (1.3-7.7); Neutrophils % (A) 57 %; RBC 4.82 m/uL (4.30-5.90); RDW 14.3 % (11.5-15.5); WBC 6.8 k/uL (3.8-10.6); WBC (Perox) 6.77
[2017-01-23 12:34] LABS: ALT 37 U/L (21-72); AST 30 U/L (17-59); Alkaline Phosphatase 51 U/L (38-126); Anion Gap 10 mmol/L; Blood Urea Nitrogen 7 mg/dL (9-20); Calcium 9.5 mg/dL (8.4-10.2); Carbon Dioxide 25 mmol/L (22-30); Chloride 109 mmol/L (98-107); Glucose 90 mg/dL (74-99); Non-African American GFR(MDRD) >60 (>60 ml/min/1.73 sqM); Potassium 4.2 mmol/L (3.5-5.1); Sodium 144 mmol/L (137-145); Total Bilirubin 0.5 mg/dL (0.2-1.3); Total Protein 7.3 g/dL (6.3-8.2)
--- NOTE | 2017-01-23 13:24 | CT ---
EXAMINATION TYPE: CT brain virgen wo con DATE OF EXAM: 01/23/2017 COMPARISON: 01/14/2017 HISTORY: Multiple seizures and injuries today with visual disturbance CT DLP: 1845 mGycm, Automated exposure control for dose reduction was used. CONTRAST: None CT of the brain is performed utilizing 3 mm thick sections through the posterior fossa and 3 mm thick sections through the remaining calvarium. Study is performed within 24 hours of arrival to the hospital. No abnormal hyperdensity is present to suggest an acute intracranial hemorrhage. No mass lesion is evident. No acute infarcts are evident. There is some encephalomalacia of the left frontal lobe. Stable from 01/14/2017. Prior left frontal craniotomy is evident. Ventricles and sulci are appropriate for the patient age. There is opacification of the right maxillary sinus. Some left mid ethmoid air cell opacification is present. Mastoid air cells are clear. There is prior craniotomy in the left parietal-occipital region . IMPRESSIONS: 1. Postsurgical changes. No acute intracranial process is evident. Encephalomalacia of the left front al lobe is present. CT cervical spine. COMPARISON: None CT of the cervical spine is performed in the axial plane at 2 mm thick sections. Reconstructed image s in the coronal, and sagittal plane are reviewed on the computer. No acute fractures are evident. There is a kyphosis centered at approximately C3-4. Disc height and vertebral body heights are preser venkatesh. No spinal canal stenosis is evident. No neural foraminal stenosis is evident. IMPRESSIONS: 1. Mild kyphosis. 2. No acute osseous abnormality.
[2017-01-23] MEDS ORDERED: LORazepam 2 MG/ML SYRINGE IV STA (13:31)
--- NOTE | 2017-01-23 13:55 | XR ---
EXAM TYPE: Thoracic spine and lumbar spine x-ray COMPARISON: NONE HISTORY: Pain TECHNIQUE: 3 views of the thoracic spine and 5 views of the lumbar spine submitted FINDINGS: Alignment is anatomic. The pedicles are intact. The transverse processes are intact. There is no s pondylolysis or spondylolisthesis. Slight curvature of the spine noted in the thoracic region. Could be positional correlate with clinic al exam. Disc interspace and vertebral body height appears be preserved at all levels. IMPRESSION: 1. No acute process.
[2017-01-23] MEDS ORDERED: VALPROATE SODIUM 1,500 MG in SODIUM CHLORIDE 0.9% 50 ML IVPB STA (14:59)
[2017-01-23 16:20] VITALS: BP 109/57; RESP 18
[2017-01-23 16:58] VITALS: PULSE 69; TEMP 97.6
== END 2017-01-23 16:58 | disposition home or self-care (01) ==
LOC: EC 11:24
DX: S00.03XA Contusion of scalp, initial encounter (principal); S20.20XA Contusion of thorax, unspecified, initial encounter; S30.0XXA Contusion of lower back and pelvis, initial encounter; F17.200 Nicotine dependence, unspecified, uncomplicated; G40.909 Epilepsy, unspecified, not intractable, without status epilepticus; Z88.5 Allergy status to narcotic agent; Z88.8 Allergy status to other drugs, medicaments and biological substances; Z79.899 Other long term (current) drug therapy; W01.198A Fall on same level from slipping, tripping and stumbling with subsequent striking against other object, initial encounter
CPT/HCPCS: 99285; 96365; 96375 ×2; 96361; 36415; 93005; 80053; 85025; 81003; 80306; 72072; 72110; 72125; 70450; J2060; J1170

== ENCOUNTER 2017-08-02 18:49 | Emergency (ER) | payer OTHER ==
[2017-08-02 19:01] VITALS: RESP 18
[2017-08-02] MEDS ORDERED: ALBUTEROL NEBULIZED 2.5 MG/3 ML INHALATION STA (19:15)
--- NOTE | 2017-08-02 19:19 | ED ---
Seizure HPI - General Chief Complaint: Seizure Stated Complaint: Seizure Time Seen by Provider: 08/02/17 18:51 Source: patient, EMS, RN notes reviewed Mode of arrival: EMS Limitations: no limitations - History of Present Illness Initial Comments: This a 31-year-old male presents emergency Department chief complaint seizure, shortness of breath. Patient states she has a long history of seizures is inspected age 15. Patient states that his been diagnosed epileptic though he has evolving seizures. He states that he seen several neurologists and neurosurgeons. He's had experimental procedures and states that they have not been able to figure out. Patient is on multiple medications. Patient states that he normally has seizures but they seem to be worse today and he primary complaint of shortness of breath. He had an episode that lasted about 2030 seconds where he cannot get a breath in. He states he does have asthma. Patient also states that he smoked marijuana today because he did help to seizures. Patient denies any focal weakness, blurred vision, nausea, vomiting diarrhea constipation. - Related Data Home Medications Medication Instructions Recorded Confirmed Clobazam [Onfi] 15 mg PO BID 01/27/14 08/02/17 Albuterol Sulfate [Ventolin HFA] 2 puff INHALATION RT-Q4H PRN 11/10/14 08/02/17 Lacosamide [Vimpat] 200 mg PO HS 08/02/16 08/02/17 Pregabalin [Lyrica] 200 mg PO TID 08/02/16 08/02/17 clonazePAM [Clonazepam] 1 mg SUBLINGUAL Q4H PRN MDD 2 mg 08/02/16 08/02/17 Lacosamide [Vimpat] 100 mg PO BID 08/02/17 08/02/17 Allergies Allergy/AdvReac Type Severity Reaction Status Date / Time brivaracetam [From Briviact] Allergy Unknown Verified 08/02/17 19:08 levetiracetam [From Keppra] AdvReac anger Verified 08/02/17 19:08 morphine AdvReac palpitation Verified 08/02/17 19:08 s Review of Systems ROS Statement: Those systems with pertinent positive or pertinent negative responses have been documented in the HPI. ROS Other: All systems not noted in ROS Statement are negative. Past Medical History Past Medical History: Asthma, GERD/Reflux, Renal Disease, Seizure Disorder Additional Past Medical History / Comment(s): Nephrolithiasis, bilateral hand "knuckles fractured." History of Any Multi-Drug Resistant Organisms: None Reported Past Surgical History: Ear Surgery Additional Past Surgical History / Comment(s): 7 BRAIN SURGERIES incuding implants and impulse procedures done at [facility], bilateral myringotomy/tubes. Past Anesthesia/Blood Transfusion Reactions: No Reported Reaction Past Psychological History: Depression Smoking Status: Current every day smoker Past Alcohol Use History: Occasional Past Drug Use History: Cocaine, Marijuana - Past Family History Father Family Medical History: Myocardial Infarction ([place]) Additional Family Medical History / Comment(s): Father of a [place] at the age of 53 yrs. Mother Family Medical History: No Reported History General Exam Limitations: no limitations General appearance: alert, in no apparent distress Head exam: Present: atraumatic, normocephalic, normal inspection Eye exam: Present: normal appearance, PERRL, EOMI. Absent: scleral icterus, conjunctival injection, periorbital swelling ENT exam: Present: normal exam, mucous membranes moist, TM's normal bilaterally , normal external ear exam. Absent: normal oropharynx (No dentition) Neck exam: Present: normal inspection, full ROM. Absent: tenderness, meningismus, lymphadenopathy Respiratory exam: Present: wheezes. Absent: respiratory distress, rales, rhonchi, stridor Cardiovascular Exam: Present: regular rate, normal rhythm, normal heart sounds. Absent: systolic murmur, diastolic murmur, rubs, gallop, clicks Neurological exam: Present: alert, oriented X3, CN II-XII intact, reflexes normal. Absent: motor sensory deficit Skin exam: Present: warm, dry, intact, normal color. Absent: rash Course Vital Signs 08/02/17 08/02/17 08/02/17 18:54 19:43 19:50 Temperature 97.6 F Pulse Rate 81 76 78 Respiratory 18 18 18 Rate Blood Pressure 114/81 O2 Sat by Pulse 98 Oximetry 08/02/17 20:50 Temperature 97.7 F Pulse Rate 85 Respiratory 18 Rate Blood Pressure 110/66 O2 Sat by Pulse 99 Oximetry Medical Decision Making - Medical Decision Making 31-year-old male presented for seizure. Patient has history of seizures and is on current medications. Patient complains of shortness breath was secondary to his smoking. Patient feels better after albuterol treatment x-rays negative. Patient we discharged advised follow-up with neurologist. - Lab Data Result diagrams: 08/02/17 19:06 08/02/17 19:06 Lab Results 08/02/17 08/02/17 Range/Units 19:06 19:06 WBC 8.5 (3.8-10.6) k/uL RBC 4.74 (4.30-5.90) m/uL Hgb 15.2 (13.0-17.5) gm/dL Hct 45.0 (39.0-53.0) % MCV 95.1 (80.0-100.0) fL MCH 32.0 (25.0-35.0) pg MCHC 33.6 (31.0-37.0) g/dL RDW 15.5 (11.5-15.5) % Plt Count 206 (150-450) k/uL Neutrophils % 63 % Lymphocytes % 27 % Monocytes % 5 % Eosinophils % 3 % Basophils % 0 % Neutrophils # 5.3 (1.3-7.7) k/uL Lymphocytes # 2.3 (1.0-4.8) k/uL Monocytes # 0.4 (0-1.0) k/uL Eosinophils # 0.2 (0-0.7) k/uL Basophils # 0.0 (0-0.2) k/uL Sodium 144 (137-145) mmol/L Potassium 4.0 (3.5-5.1) mmol/L Chloride 105 (98-107) mmol/L Carbon Dioxide 30 (22-30) mmol/L Anion Gap 9 mmol/L BUN 11 (9-20) mg/dL Creatinine 1.05 (0.66-1.25) mg/dL Est GFR (MDRD) Af Amer >60 (>60 ml/min/1.73 sqM) Est GFR (MDRD) Non-Af >60 (>60 ml/min/1.73 sqM) Glucose 98 (74-99) mg/dL Calcium 9.7 (8.4-10.2) mg/dL Total Bilirubin 0.2 (0.2-1.3) mg/dL AST 20 (17-59) U/L ALT 34 (21-72) U/L Alkaline Phosphatase 60 (38-126) U/L Total Protein 7.1 (6.3-8.2) g/dL Albumin 4.4 (3.5-5.0) g/dL - EKG Data EKG Comments: EKG performed at 19:32 and normal sinus rhythm with rate 66 [place] 152 QRS 98 QT/ QTC 382/400 Disposition Clinical Impression: Seizure disorder, Focal seizure Disposition: HOME SELF-CARE Condition: Stable Instructions: Recurrent Seizures in Adults (ED) Additional Instructions: Please return to the Emergency Department if symptoms worsen or any other concerns. Referrals: Mazin Jay MD [Primary Care Provider] - 1-2 days Time of Disposition: 21:18
[2017-08-02 19:25] LABS: Basophils % (A) 0 %; Eosinophils # (A) 0.2 k/uL (0-0.7); Eosinophils % (A) 3 %; HGB 15.2 gm/dL (13.0-17.5); Lymphocytes # (A) 2.3 k/uL (1.0-4.8); Lymphocytes % (A) 27 %; MCHC 33.6 g/dL (31.0-37.0); MCV 95.1 fL (80.0-100.0); Mean Platelet Volume 8.1; Monocytes # (A) 0.4 k/uL (0-1.0); Monocytes % (A) 5 %; Neutrophils # (A) 5.3 k/uL (1.3-7.7); Neutrophils % (A) 63 %; Platelet Count 206 k/uL (150-450); RBC 4.74 m/uL (4.30-5.90); RDW 15.5 % (11.5-15.5); WBC 8.5 k/uL (3.8-10.6)
[2017-08-02 19:35] LABS: ALT 34 U/L (21-72); AST 20 U/L (17-59); Albumin 4.4 g/dL (3.5-5.0); Alkaline Phosphatase 60 U/L (38-126); Anion Gap 9 mmol/L; Blood Urea Nitrogen 11 mg/dL (9-20); Calcium 9.7 mg/dL (8.4-10.2); Carbon Dioxide 30 mmol/L (22-30); Chloride 105 mmol/L (98-107); Glucose 98 mg/dL (74-99); Sodium 144 mmol/L (137-145); Total Bilirubin 0.2 mg/dL (0.2-1.3); Total Protein 7.1 g/dL (6.3-8.2)
--- NOTE | 2017-08-02 19:36 | XR ---
EXAMINATION TYPE: XR chest 2V DATE OF EXAM: 08/02/2017 COMPARISON: 09/12/2015 HISTORY: Cough TECHNIQUE: Frontal and lateral views of the chest are obtained. FINDINGS: Heart and mediastinum are normal. Lungs are clear. Diaphragm is normal. Bony thorax appear s normal. IMPRESSION: Normal chest. No change.
[2017-08-02 20:50] VITALS: BP 110/66; PULSE 85; TEMP 97.7
[2017-08-02] MEDS ORDERED: methylPREDNISolone SOD SUCCI 125 MG/2 ML VIAL IV STA (21:24)
== END 2017-08-02 21:31 | disposition home or self-care (01) ==
LOC: EC 18:49
DX: G40.909 Epilepsy, unspecified, not intractable, without status epilepticus (principal); K21.9 Gastro-esophageal reflux disease without esophagitis; F32.9 Major depressive disorder, single episode, unspecified; F17.200 Nicotine dependence, unspecified, uncomplicated; Z79.899 Other long term (current) drug therapy; Z88.5 Allergy status to narcotic agent; Z88.8 Allergy status to other drugs, medicaments and biological substances
CPT/HCPCS: 36415; 94640; 93005; 80053; 85025; 71020; 99285; 96374; J2930

== ENCOUNTER 2018-01-19 21:23 | Emergency (ER) | payer MEDICARE, OTHER ==
[2018-01-19 21:31] VITALS: TEMP 98.3
[2018-01-19] MEDS ORDERED: LORazepam 2 MG/ML INJ IV STA (21:54)
[2018-01-19 22:11] LABS: Basophils % (A) 0 %; Eosinophils # (A) 0.2 k/uL (0-0.7); Eosinophils % (A) 3 %; HCT 43.3 % (39.0-53.0); HGB 15.2 gm/dL (13.0-17.5); Lymphocytes # (A) 2.7 k/uL (1.0-4.8); Lymphocytes % (A) 37 %; MCH 31.5 pg (25.0-35.0); MCHC 35.2 g/dL (31.0-37.0); MCV 89.6 fL (80.0-100.0); Mean Platelet Volume 7.9; Monocytes # (A) 0.4 k/uL (0-1.0); Monocytes % (A) 6 %; Neutrophils # (A) 3.9 k/uL (1.3-7.7); Neutrophils % (A) 52 %; Platelet Count 205 k/uL (150-450); RBC 4.84 m/uL (4.30-5.90); RDW 13.4 % (11.5-15.5); WBC 7.4 k/uL (3.8-10.6)
--- NOTE | 2018-01-19 22:11 | ED ---
Seizure HPI - General Chief Complaint: Seizure Stated Complaint: Seizures Time Seen by Provider: 01/19/18 21:37 Source: patient Mode of arrival: wheelchair Limitations: no limitations - History of Present Illness Initial Comments: This patient is a 32-year-old man with history of seizure disorder since age 15 , who presents with complaint that he is having more seizures than usual. The patient has partial seizures, and states that he usually has 5-10 of these per day. He states that he has had more seizures than usual today. He states that when this occurs he usually goes to the emergency department for Ativan which will decrease his seizure frequency. The patient takes Vimpat and Onfi for seizures and has been compliant. The patient denies any trauma as result of these. The patient's mother is here with him and states that he does appear to be otherwise at his baseline, and that he does have "seizure days," that are like this. Complaint: seizure -: days(s) Description of Episode: tonic-clonic movement -: second(s) Witnessed: yes - by bystander Trauma: No Seizure History: known seizure disorder, compliant with medication Place: home Possible Precipitating Event: none Associated Symptoms: denies other symptoms - Related Data Home Medications Medication Instructions Recorded Confirmed Clobazam [Onfi] 15 mg PO BID 01/27/14 01/19/18 Albuterol Sulfate [Ventolin HFA] 2 puff INHALATION RT-Q4H PRN 11/10/14 01/19/18 Lacosamide [Vimpat] 200 mg PO DAILY@0800,1200 08/02/16 01/19/18 clonazePAM [Clonazepam] 1 mg SUBLINGUAL DAILY PRN MDD 2 mg 08/02/16 01/19/18 D-Methorphan/PE/Acetaminophen 1 cap PO DAILY PRN 01/19/18 01/19/18 [Vicks Dayquil Liquicaps] Lacosamide [Vimpat] 400 mg PO HS 01/19/18 01/19/18 Pregabalin [Lyrica] 300 mg PO TID 01/19/18 01/19/18 Allergies Allergy/AdvReac Type Severity Reaction Status Date / Time brivaracetam [From Briviact] Allergy Unknown Verified 01/19/18 21:37 levetiracetam [From Keppra] AdvReac anger Verified 01/19/18 21:37 morphine AdvReac palpitation Verified 01/19/18 21:37 s Review of Systems ROS Statement: Those systems with pertinent positive or pertinent negative responses have been documented in the HPI. ROS Other: All systems not noted in ROS Statement are negative. Constitutional: Denies: fever, chills Respiratory: Denies: cough, dyspnea Cardiovascular: Denies: chest pain Gastrointestinal: Denies: abdominal pain, nausea, vomiting Musculoskeletal: Denies: back pain Skin: Denies: rash Neurological: Denies: headache, weakness, numbness Past Medical History Past Medical History: Asthma, GERD/Reflux, Renal Disease, Seizure Disorder Additional Past Medical History / Comment(s): Nephrolithiasis, History of Any Multi-Drug Resistant Organisms: None Reported Past Surgical History: Ear Surgery Additional Past Surgical History / Comment(s): 7 BRAIN SURGERIES incuding implants and impulse procedures done at [facility], bilateral myringotomy/tubes. Past Anesthesia/Blood Transfusion Reactions: No Reported Reaction Past Psychological History: Depression Smoking Status: Current every day smoker Past Alcohol Use History: Occasional Past Drug Use History: Marijuana - Past Family History Father Family Medical History: Myocardial Infarction ([place]) Additional Family Medical History / Comment(s): Father of a [place] at the age of 53 yrs. Mother Family Medical History: No Reported History General Exam Limitations: no limitations General appearance: alert, in no apparent distress Head exam: Present: other (Old postsurgical changes) Eye exam: Present: normal appearance, PERRL, EOMI. Absent: scleral icterus, conjunctival injection, nystagmus ENT exam: Present: normal oropharynx Neck exam: Present: normal inspection, full ROM. Absent: meningismus Respiratory exam: Present: normal lung sounds bilaterally. Absent: respiratory distress, wheezes, rales, rhonchi, stridor Cardiovascular Exam: Present: regular rate, normal rhythm, normal heart sounds. Absent: systolic murmur, diastolic murmur, rubs, gallop GI/Abdominal exam: Present: soft. Absent: distended, tenderness, guarding, rebound, mass Extremities exam: Present: normal inspection, normal capillary refill Neurological exam: Present: alert, oriented X3, CN II-XII intact. Absent: motor sensory deficit Skin exam: Present: warm, dry, intact, normal color. Absent: rash Course Vital Signs 01/19/18 01/19/18 21:24 22:30 Temperature 98.3 F Pulse Rate 72 98 Respiratory 18 18 Rate Blood Pressure 134/73 126/63 O2 Sat by Pulse 99 100 Oximetry Medical Decision Making - Lab Data Result diagrams: 01/19/18 21:52 01/19/18 21:52 Lab Results 01/19/18 01/19/18 01/19/18 Range/Units 21:52 21:52 22:13 WBC 7.4 (3.8-10.6) k/uL RBC 4.84 (4.30-5.90) m/uL Hgb 15.2 (13.0-17.5) gm/dL Hct 43.3 (39.0-53.0) % MCV 89.6 (80.0-100.0) fL MCH 31.5 (25.0-35.0) pg MCHC 35.2 (31.0-37.0) g/dL RDW 13.4 (11.5-15.5) % Plt Count 205 (150-450) k/uL Neutrophils % 52 % Lymphocytes % 37 % Monocytes % 6 % Eosinophils % 3 % Basophils % 0 % Neutrophils # 3.9 (1.3-7.7) k/uL Lymphocytes # 2.7 (1.0-4.8) k/uL Monocytes # 0.4 (0-1.0) k/uL Eosinophils # 0.2 (0-0.7) k/uL Basophils # 0.0 (0-0.2) k/uL Sodium 143 (137-145) mmol/L Potassium 3.8 (3.5-5.1) mmol/L Chloride 105 (98-107) mmol/L Carbon Dioxide 26 (22-30) mmol/L Anion Gap 12 mmol/L BUN 9 (9-20) mg/dL Creatinine 1.02 (0.66-1.25) mg/dL Est GFR (CKD-EPI)AfAm >90 (>60 ml/min/1.73 sqM) Est GFR (CKD-EPI)NonAf >90 (>60 ml/min/1.73 sqM) Glucose 111 H (74-99) mg/dL Calcium 9.5 (8.4-10.2) mg/dL Total Bilirubin 0.3 (0.2-1.3) mg/dL AST 22 (17-59) U/L ALT 33 (21-72) U/L Alkaline Phosphatase 65 (38-126) U/L Total Protein 7.1 (6.3-8.2) g/dL Albumin 4.6 (3.5-5.0) g/dL Urine Opiates Screen Not Detected (NotDetected) Ur Oxycodone Screen Not Detected (NotDetected) Urine Methadone Screen Not Detected (NotDetected) Ur Propoxyphene Screen Not Detected (NotDetected) Ur Barbiturates Screen Detected H (NotDetected) U Tricyclic Antidepress Not Detected (NotDetected) Ur Phencyclidine Scrn Not Detected (NotDetected) Ur Amphetamines Screen Not Detected (NotDetected) U Methamphetamines Scrn Not Detected (NotDetected) U Benzodiazepines Scrn Detected H (NotDetected) Urine Cocaine Screen Not Detected (NotDetected) U Marijuana (THC) Screen Detected H (NotDetected) - EKG Data -: EKG Interpreted by Me EKG shows normal: sinus rhythm (With sinus arrhythmia), axis (Normal), intervals (Normal), QRS complexes (Normal), ST-T waves (Normal) Rate: normal (Rate proximally 61 bpm) Interpretation: normal EKG Disposition Clinical Impression: Seizure disorder Disposition: HOME SELF-CARE Condition: Good Instructions: Recurrent Seizures in Adults (ED) Is patient prescribed a controlled substance at d/c from ED?: No Referrals: Adam Jay MD [Primary Care Provider] - 1-2 days
[2018-01-19 22:35] LABS: Amphetamine Screen,Urine Not Detected (NotDetected); Barbiturate Screen,Urine Detected (NotDetected); Benzodiazepines Screen,Urine Detected (NotDetected); Cocaine Screen,Urine Not Detected (NotDetected); Methadone Screen, Urine Not Detected (NotDetected); Opiate Screen,Urine Not Detected (NotDetected); Oxycodone Screen, Urine Not Detected (NotDetected); Phencyclidine Screen,Urine Not Detected (NotDetected); Tricyclic Antidepressant,Urine Not Detected (NotDetected); Urn Cannabinoid Scrn Detected (NotDetected)
[2018-01-19 22:40] LABS: ALT 33 U/L (21-72); AST 22 U/L (17-59); Albumin 4.6 g/dL (3.5-5.0); Alkaline Phosphatase 65 U/L (38-126); Anion Gap 12 mmol/L; Blood Urea Nitrogen 9 mg/dL (9-20); Calcium 9.5 mg/dL (8.4-10.2); Carbon Dioxide 26 mmol/L (22-30); Chloride 105 mmol/L (98-107); Glucose 111 mg/dL (74-99); Potassium 3.8 mmol/L (3.5-5.1); Sodium 143 mmol/L (137-145); Total Bilirubin 0.3 mg/dL (0.2-1.3); Total Protein 7.1 g/dL (6.3-8.2)
[2018-01-19 23:09] VITALS: BP 119/66; PULSE 86; RESP 19
== END 2018-01-19 23:12 | disposition home or self-care (01) ==
LOC: EC 21:23
DX: G40.909 Epilepsy, unspecified, not intractable, without status epilepticus (principal); J45.909 Unspecified asthma, uncomplicated; F17.200 Nicotine dependence, unspecified, uncomplicated; Z79.899 Other long term (current) drug therapy; Z88.5 Allergy status to narcotic agent; Z88.8 Allergy status to other drugs, medicaments and biological substances
CPT/HCPCS: 36415; 93005; 80053; 85025; 80306; 99284; 96374; J2060

== ENCOUNTER 2018-01-20 07:42 | Emergency (ER) | payer MEDICARE, OTHER ==
[2018-01-20] MEDS ORDERED: LORazepam 2 MG/ML INJ IV STA (08:37)
[2018-01-20] MEDS ORDERED: SODIUM CHLORIDE 0.9% 1,000 ML IV STA (08:37)
--- NOTE | 2018-01-20 08:43 | ED ---
Seizure HPI - General Chief Complaint: Seizure Stated Complaint: Seizures Time Seen by Provider: 01/20/18 08:05 Source: patient, RN notes reviewed, old records reviewed Mode of arrival: wheelchair Limitations: no limitations - History of Present Illness Initial Comments: Patient is a 32-year-old male chief complaint of seizure activity for the past 2 days. He is evaluated yesterday evening, given a dose of Ativan and sent home. He reports he was seizure-free for a few hours but then returned having more seizures. He states that he has seizures the last 1-2 minutes, but he is able to be alert and talkative throughout. Patient has a history of 7 brain surgeries. His neurologist is Dr. Quinonez and [facility]. He has an appointment to see his [facility] physician within the next month. Patient states that he isn't taking his medication as prescribed. Denies any illicit drug use. Patient states that he has had multiple falls today and regards to his seizures. He reports abrasions and pain over his mid and lower back. Patient states he did hit his head on one of the falls. Patient states that he has had no chest pain or shortness of breath, denies any nausea vomiting. - Related Data Home Medications Medication Instructions Recorded Confirmed Albuterol Sulfate [Ventolin HFA] 2 puff INHALATION RT-Q4H PRN 11/10/14 01/20/18 Lacosamide [Vimpat] 200 mg PO DAILY@0600,1200 08/02/16 01/20/18 clonazePAM [Clonazepam] 1 mg SUBLINGUAL DAILY PRN MDD 2 mg 08/02/16 01/20/18 D-Methorphan/PE/Acetaminophen 1 cap PO DAILY PRN 01/19/18 01/20/18 [Vicks Dayquil Liquicaps] Lacosamide [Vimpat] 400 mg PO HS 01/19/18 01/20/18 Pregabalin [Lyrica] 300 mg PO TID 01/19/18 01/20/18 Onfi 20mg 20 mg PO BID 01/20/18 01/20/18 Allergies Allergy/AdvReac Type Severity Reaction Status Date / Time brivaracetam [From Briviact] Allergy Unknown Verified 01/20/18 08:49 levetiracetam [From Keppra] AdvReac anger Verified 01/20/18 08:49 morphine AdvReac palpitation Verified 01/20/18 08:49 s Review of Systems ROS Statement: Those systems with pertinent positive or pertinent negative responses have been documented in the HPI. ROS Other: All systems not noted in ROS Statement are negative. Past Medical History Past Medical History: Asthma, GERD/Reflux, Renal Disease, Seizure Disorder Additional Past Medical History / Comment(s): Nephrolithiasis, History of Any Multi-Drug Resistant Organisms: None Reported Past Surgical History: Ear Surgery Additional Past Surgical History / Comment(s): 7 BRAIN SURGERIES incuding implants and impulse procedures done at [facility], bilateral myringotomy/tubes. Past Anesthesia/Blood Transfusion Reactions: No Reported Reaction Past Psychological History: Depression Smoking Status: Current every day smoker Past Alcohol Use History: Occasional Past Drug Use History: Marijuana - Past Family History Father Family Medical History: Myocardial Infarction ([place]) Additional Family Medical History / Comment(s): Father of a [place] at the age of 53 yrs. Mother Family Medical History: No Reported History General Exam - General Exam Comments Initial Comments: 32-year-old male. Alert and oriented. No significant distress. Limitations: no limitations General appearance: alert, in no apparent distress Head exam: Present: atraumatic, normocephalic, normal inspection Eye exam: Present: normal appearance, PERRL, EOMI. Absent: scleral icterus, conjunctival injection, periorbital swelling ENT exam: Present: normal exam, mucous membranes moist Neck exam: Present: normal inspection. Absent: tenderness, meningismus, lymphadenopathy Respiratory exam: Present: normal lung sounds bilaterally. Absent: respiratory distress, wheezes, rales, rhonchi, stridor Cardiovascular Exam: Present: regular rate, normal rhythm, normal heart sounds. Absent: systolic murmur, diastolic murmur, rubs, gallop, clicks GI/Abdominal exam: Present: soft, normal bowel sounds. Absent: distended, tenderness, guarding, rebound, rigid Extremities exam: Present: normal inspection, full ROM, normal capillary refill. Absent: tenderness, pedal edema, joint swelling, calf tenderness Back exam: Present: normal inspection, paraspinal tenderness, vertebral tenderness (Patient has abrasions and paraspinal tenderness over the thoracic back.). Absent: full ROM Neurological exam: Present: alert Psychiatric exam: Present: normal affect, normal mood Skin exam: Present: warm, dry, intact, normal color. Absent: rash Course Vital Signs 01/20/18 07:46 Temperature 98.5 F Pulse Rate 78 Respiratory 18 Rate Blood Pressure 115/74 O2 Sat by Pulse 98 Oximetry Medical Decision Making - Medical Decision Making 32-year-old male presents for reevaluation for seizures. He's had recurrent seizures today. He did have some falls related to it. Has abrasions over his back. At this time patient's CT of the brain and C-spine reviewed and negative for any acute process. Patient's thoracic and lumbar spine x-rays reviewed and normal. Patient's labwork was reviewed and unremarkable. He did have positive marijuana chest pressure and stable. Discusses could also relate to his seizures. Patient states he does smoke regularly. He he does have seizures daily. While in the emergency department he has not had one. I did give the Patient a dose of Ativan. I discussed that he needs to follow-up with primary care provider. All questions answered and return parameters were discussed. He will be following up with his urologist in a few weeks. Discussed return here or follow up sooner with a neurologist. - Lab Data Result diagrams: 01/20/18 08:56 01/20/18 08:56 Lab Results 01/20/18 01/20/18 01/20/18 Range/Units 08:56 08:56 08:56 WBC 5.8 (3.8-10.6) k/uL RBC 5.01 (4.30-5.90) m/uL Hgb 15.8 (13.0-17.5) gm/dL Hct 45.1 (39.0-53.0) % MCV 90.1 (80.0-100.0) fL MCH 31.6 (25.0-35.0) pg MCHC 35.0 (31.0-37.0) g/dL RDW 13.4 (11.5-15.5) % Plt Count 197 (150-450) k/uL Neutrophils % 65 % Lymphocytes % 25 % Monocytes % 7 % Eosinophils % 2 % Basophils % 0 % Neutrophils # 3.8 (1.3-7.7) k/uL Lymphocytes # 1.4 (1.0-4.8) k/uL Monocytes # 0.4 (0-1.0) k/uL Eosinophils # 0.1 (0-0.7) k/uL Basophils # 0.0 (0-0.2) k/uL Sodium 146 H (137-145) mmol/L Potassium 4.4 (3.5-5.1) mmol/L Chloride 106 (98-107) mmol/L Carbon Dioxide 30 (22-30) mmol/L Anion Gap 10 mmol/L BUN 9 (9-20) mg/dL Creatinine 0.90 (0.66-1.25) mg/dL Est GFR (CKD-EPI)AfAm >90 (>60 ml/min/1.73 sqM) Est GFR (CKD-EPI)NonAf >90 (>60 ml/min/1.73 sqM) Glucose 101 H (74-99) mg/dL Calcium 9.8 (8.4-10.2) mg/dL Total Bilirubin 0.2 (0.2-1.3) mg/dL AST 24 (17-59) U/L ALT 35 (21-72) U/L Alkaline Phosphatase 74 (38-126) U/L Total Protein 7.4 (6.3-8.2) g/dL Albumin 4.8 (3.5-5.0) g/dL Urine Color Light Yellow Urine Appearance Clear (Clear) Urine pH 7.0 (5.0-8.0) Ur Specific [place] 1.004 (1.001-1.035) Urine Protein Negative (Negative) Urine Glucose (UA) Negative (Negative) Urine Ketones Negative (Negative) Urine Blood Negative (Negative) Urine Nitrite Negative (Negative) Urine Bilirubin Negative (Negative) Urine Urobilinogen <2.0 (<2.0) mg/dL Ur Leukocyte Esterase Negative (Negative) Urine Opiates Screen Not Detected (NotDetected) Ur Oxycodone Screen Not Detected (NotDetected) Urine Methadone Screen Not Detected (NotDetected) Ur Propoxyphene Screen Not Detected (NotDetected) Acetaminophen <10.0 ug/mL Ur Barbiturates Screen Not Detected (NotDetected) Phenytoin <3.0 ug/mL Valproic Acid <10.0 ug/mL Carbamazepine <3.0 ug/mL U Tricyclic Antidepress Not Detected (NotDetected) Ur Phencyclidine Scrn Not Detected (NotDetected) Ur Amphetamines Screen Not Detected (NotDetected) U Methamphetamines Scrn Not Detected (NotDetected) U Benzodiazepines Scrn Detected H (NotDetected) [place] <0.2 mmol/L Urine Cocaine Screen Not Detected (NotDetected) U Marijuana (THC) Screen Detected H (NotDetected) 01/20/18 09:16 EKG performed at 906 shows normal sinus rhythm, normal EKG. Ventricular rate of 79 bpm. Intervals 152. QRS ration 94. QT QTC 392/449 ms. - Radiology Data Radiology results: report reviewed No acute fracture dislocation seen and thoracic spine. No acute fracture dislocation of the lumbar spine. Acute fracture dislocation of the cervical spine. No acute intracranial hemorrhage or midline shift. Stable multifocal post surgical changes and encephalomalacia left frontal lobe in comparison to prior. Chronic paranasal sinus disease and incidentally noted bilateral shotty auditory canal sermon impaction. Disposition Clinical Impression: Seizure disorder Disposition: HOME SELF-CARE Condition: Good Instructions: Recurrent Seizures in Adults (ED) Additional Instructions: Patient advised to follow-up with primary care provider and neurologist. Take medication as prescribed. Avoid smoking marijuana. Return to the emergency department if any alarming signs or symptoms occur. Is patient prescribed a controlled substance at d/c from ED?: No When asked, does pt state using other controlled substances?: No If prescribed controlled substance>3 days was MAPS reviewed?: No If opioid is for acute pain is fill amount 7 days or less?: No If Rx opioid, was Start Talking consent form obtained?: No Referrals: Mazin Jay MD [Primary Care Provider] - 1-2 days Time of Disposition: 10:50
[2018-01-20] MEDS ORDERED: SODIUM CHLORIDE 0.9% 1,000 ML IV SCH (08:45)
[2018-01-20 09:12] LABS: Basophils % (A) 0 %; Eosinophils # (A) 0.1 k/uL (0-0.7); Eosinophils % (A) 2 %; HCT 45.1 % (39.0-53.0); HGB 15.8 gm/dL (13.0-17.5); Lymphocytes # (A) 1.4 k/uL (1.0-4.8); Lymphocytes % (A) 25 %; MCH 31.6 pg (25.0-35.0); MCV 90.1 fL (80.0-100.0); Mean Platelet Volume 7.8; Monocytes # (A) 0.4 k/uL (0-1.0); Monocytes % (A) 7 %; Neutrophils # (A) 3.8 k/uL (1.3-7.7); Neutrophils % (A) 65 %; Platelet Count 197 k/uL (150-450); RBC 5.01 m/uL (4.30-5.90); RDW 13.4 % (11.5-15.5); WBC 5.8 k/uL (3.8-10.6)
[2018-01-20 09:20] LABS: Appearance,Urine Clear (Clear); Bilirubin,Urine Negative (Negative); Blood,Urine Negative (Negative); Color,Urine Light Yellow; Glucose,Urine (UA) Negative (Negative); Ketones,Urine Negative (Negative); Leukocyte Esterase,Urine Negative (Negative); Nitrite,Urine Negative (Negative); Protein,Urine Negative (Negative); Specific Gravity,Urine 1.004 (1.001-1.035); Urobilinogen,Urine <2.0 mg/dL (<2.0)
[2018-01-20 09:26] LABS: ALT 35 U/L (21-72); AST 24 U/L (17-59); Acetaminophen <10.0 ug/mL; Albumin 4.8 g/dL (3.5-5.0); Alkaline Phosphatase 74 U/L (38-126); Anion Gap 10 mmol/L; Blood Urea Nitrogen 9 mg/dL (9-20); Calcium 9.8 mg/dL (8.4-10.2); Carbamazepine (Tegretol) <3.0 ug/mL; Carbon Dioxide 30 mmol/L (22-30); Chloride 106 mmol/L (98-107); Glucose 101 mg/dL (74-99); Lithium <0.2 mmol/L; Phenytoin (Dilantin) <3.0 ug/mL; Potassium 4.4 mmol/L (3.5-5.1); Sodium 146 mmol/L (137-145); Total Bilirubin 0.2 mg/dL (0.2-1.3); Total Protein 7.4 g/dL (6.3-8.2)
[2018-01-20 09:28] LABS: Valproic Acid (Depakene) <10.0 ug/mL
--- NOTE | 2018-01-20 09:41 | XR ---
EXAMINATION TYPE: XR lumbar spine 2 or 3V DATE OF EXAM: 01/20/2018 CLINICAL HISTORY: Back pain following fall injury. TECHNIQUE: Frontal and lateral images of the lumbar spine are obtained. COMPARISON: Lumbar spine x-ray January 23, 2017 FINDINGS: There are 5 lumbar type vertebral bodies identified. The lumbar spine shows satisfactory alignment without evidence of acute fracture or dislocation. Mild anterior wedging T12 and L1 levels, is not significantly changed from prior. Vertebral body heights and disk space heights otherwise are within normal limits. The overlying soft tissue appears unremarkable. IMPRESSION: No acute fracture or dislocation is seen in the lumbar spine.
--- NOTE | 2018-01-20 09:42 | XR ---
EXAMINATION TYPE: XR thoracic spine 2V DATE OF EXAM: 01/20/2018 CLINICAL HISTORY: Fall with mid back pain. TECHNIQUE: Frontal, lateral, and swimmer's view of thoracic spine are obtained. COMPARISON: Thoracic spine x-ray January 23, 2017. FINDINGS: Thoracic spine show stable slight scoliotic curvature without evidence of acute fracture or dislocation. Vertebral body heights and disc space heights are preserved. Visualized ribs are unrem arkable bilaterally. IMPRESSION: No acute fracture or dislocation is seen in the thoracic spine.
--- NOTE | 2018-01-20 09:49 | CT ---
EXAMINATION TYPE: CT brain cspine wo con DATE OF EXAM: 01/20/2018 COMPARISON: 01/21/2017 HISTORY: Multiple seizures, history of 7 brain surgeries including implants and impulse procedures CT DLP: 1554.3 mGycm. Automated Exposure Control for Dose Reduction was Utilized. TECHNIQUE: CT scan of the head and cervical spine are performed without contrast. FINDINGS: There is redemonstration of bifrontal craniotomy and craniectomy defects as well as a left posterior parietal calvarial defect from prior craniotomy and craniectomy. Overlying the frontal reg ion there is redemonstration of dural graft material unchanged from the prior. There is no acute intr acranial hemorrhage, mass effect, or midline shift identified. Encephalomalacia within the left fron marisela lobe is redemonstrated. The ventricles and sulci are within normal limits in size. The globes ar e intact and the visualized sinuses are clear. Bilateral cerumen impaction is incidentally noted with in the external auditory canals. There is complete opacification of the right maxillary sinus, unchan ged from the prior. Mild mucosal thickening within the ethmoid sinuses is also persistent from the pr ior. Secretions are noted within the posterior nasopharynx. Cervical spine is visualized in its entirety from C1 through upper thoracic levels and demonstrates s atisfactory alignment without evidence of acute fracture or dislocation. Straightening of the usual c ervical lordosis likely relates to patient positioning. Prevertebral soft tissue appears within kareem l limits. The C1-C2 articulation is unremarkable. IMPRESSION: 1. There is no acute fracture or dislocation evident in the cervical spine. 2. No acute intracranial hemorrhage or midline shift. Stable multifocal postsurgical change and encep halomalacia of the left frontal lobe in comparison to the prior. 3. Chronic paranasal sinus disease and incidentally noted bilateral external auditory canal cerumen i mpaction.
[2018-01-20 09:52] LABS: Amphetamine Screen,Urine Not Detected (NotDetected); Barbiturate Screen,Urine Not Detected (NotDetected); Benzodiazepines Screen,Urine Detected (NotDetected); Cocaine Screen,Urine Not Detected (NotDetected); Methadone Screen, Urine Not Detected (NotDetected); Opiate Screen,Urine Not Detected (NotDetected); Oxycodone Screen, Urine Not Detected (NotDetected); Phencyclidine Screen,Urine Not Detected (NotDetected); Tricyclic Antidepressant,Urine Not Detected (NotDetected); Urn Cannabinoid Scrn Detected (NotDetected)
[2018-01-20 11:01] VITALS: BP 117/73; PULSE 62; RESP 16; TEMP 98.2
== END 2018-01-20 11:01 | disposition home or self-care (01) ==
LOC: EC 07:42
DX: G40.909 Epilepsy, unspecified, not intractable, without status epilepticus (principal); S20.419A Abrasion of unspecified back wall of thorax, initial encounter; S30.810A Abrasion of lower back and pelvis, initial encounter; J45.909 Unspecified asthma, uncomplicated; K21.9 Gastro-esophageal reflux disease without esophagitis; F32.9 Major depressive disorder, single episode, unspecified; F17.200 Nicotine dependence, unspecified, uncomplicated; Z98.890 Other specified postprocedural states; Z79.899 Other long term (current) drug therapy; Z88.5 Allergy status to narcotic agent; Z88.8 Allergy status to other drugs, medicaments and biological substances; W19.XXXA Unspecified fall, initial encounter
CPT/HCPCS: 36415; 93005; 80156; 80164; 80053; 80185; 80178; 85025; 81003; 80306; 83520; 72070; 72100; 72125; 70450; 99285; 96374; 96361 ×2; J2060

== ENCOUNTER 2018-12-07 11:51 | Emergency (ER) | payer MEDICARE, OTHER ==
[2018-12-07] MEDS ORDERED: SODIUM CHLORIDE 0.9% 1,000 ML IV STA (12:15)
--- NOTE | 2018-12-07 12:21 | ED ---
General Adult HPI - General Chief complaint: Seizure Stated complaint: seizure Time Seen by Provider: 12/07/18 11:53 Source: patient, family, EMS, RN notes reviewed, old records reviewed Mode of arrival: EMS Limitations: no limitations - History of Present Illness Initial comments: Patient is a 32-year-old male presents weren't certain today for complaints of seizure activity that lasted for approximately one hour. reports that he has a long-standing history of seizure disorder since he was 15 years old. He sees a neurologist in [place] and is also had a brain implant to prevent a seizure activity. Patient states that seems to have daily seizures. At times it can last as long as he did this morning. He was given 3 doses of Klonopin by his stepfather. He is monitored, and had no falls or head injury at this time. Patient states he has no new pains after his seizure activity. He reports the seizure activities likely started due to lacking sleep. He states he was up all night. - Related Data Home Medications Medication Instructions Recorded Confirmed Albuterol Sulfate [Ventolin HFA] 2 puff INHALATION RT-Q4H PRN 11/10/14 12/07/18 Lacosamide [Vimpat] 200 mg PO DAILY 08/02/16 12/07/18 clonazePAM [Clonazepam] 1 mg SUBLINGUAL DAILY PRN MDD 2 mg 08/02/16 12/07/18 Lacosamide [Vimpat] 400 mg PO HS 01/19/18 12/07/18 Pregabalin [Lyrica] 300 mg PO TID 01/19/18 12/07/18 Onfi 20mg 20 mg PO BID 01/20/18 12/07/18 Fluticasone Propionate [Flovent 1 puff INHALATION RT-BID 12/07/18 12/07/18 Hfa 110 mcg] Allergies Allergy/AdvReac Type Severity Reaction Status Date / Time brivaracetam [From Briviact] Allergy Unknown Verified 12/07/18 12:18 levetiracetam [From Keppra] AdvReac anger Verified 12/07/18 12:18 morphine AdvReac palpitation Verified 12/07/18 12:18 s Review of Systems ROS Statement: Those systems with pertinent positive or pertinent negative responses have been documented in the HPI. ROS Other: All systems not noted in ROS Statement are negative. Past Medical History Past Medical History: Asthma, GERD/Reflux, Renal Disease, Seizure Disorder Additional Past Medical History / Comment(s): Nephrolithiasis, History of Any Multi-Drug Resistant Organisms: None Reported Past Surgical History: Ear Surgery Additional Past Surgical History / Comment(s): 7 BRAIN SURGERIES incuding implants and impulse procedures done at [facility], bilateral myringotomy/tubes. Past Anesthesia/Blood Transfusion Reactions: No Reported Reaction Past Psychological History: Depression Smoking Status: Current every day smoker Past Alcohol Use History: Occasional Past Drug Use History: Marijuana - Past Family History Father Family Medical History: Myocardial Infarction (ME) Additional Family Medical History / Comment(s): Father of a ME at the age of 53 yrs. Mother Family Medical History: No Reported History General Exam - General Exam Comments Initial Comments: Alert and oriented 32-year-old male. No significant distress. Patient arrived via ems. Limitations: no limitations General appearance: alert, in no apparent distress Head exam: Present: atraumatic, normocephalic, normal inspection Eye exam: Present: normal appearance, PERRL, EOMI. Absent: scleral icterus, conjunctival injection, periorbital swelling ENT exam: Present: normal exam, mucous membranes moist Neck exam: Present: normal inspection. Absent: tenderness, meningismus, lymphadenopathy Respiratory exam: Present: normal lung sounds bilaterally. Absent: respiratory distress, wheezes, rales, rhonchi, stridor Cardiovascular Exam: Present: regular rate, normal rhythm, normal heart sounds. Absent: systolic murmur, diastolic murmur, rubs, gallop, clicks GI/Abdominal exam: Present: soft, normal bowel sounds. Absent: distended, tenderness, guarding, rebound, rigid Extremities exam: Present: normal inspection, full ROM, normal capillary refill. Absent: tenderness, pedal edema, joint swelling, calf tenderness Back exam: Present: normal inspection Neurological exam: Present: alert, oriented X3, CN II-XII intact Psychiatric exam: Present: normal affect, normal mood Course Vital Signs 12/07/18 11:56 Temperature 98.3 F Pulse Rate 96 Respiratory 18 Rate Blood Pressure 124/83 O2 Sat by Pulse 96 Oximetry EKG Findings - EKG Comments: EKG Findings:: EKG shows a sinus rhythm normally QT. Ventricular rate of 87 beats were minute. MD interval is 150 ms. She cheondoism 92 ms. QT QTc is 366/420 ms. Medical Decision Making - Medical Decision Making 32-year-old male with a likely history of seizure disorder presents today for evaluation after seizure that lasted over approximately an hour. He states he has his episodes of morning. Often turgor by fatigue. He states he did not sleep well last night. At this time Patient is alert and oriented otherwise appears well. No neurological deficits. denies Follow head injuries related to the surgery to the seizure. Patient denies fluids are obtained. Labs was reviewed and unremarkable. Patient's urine drug screen is positive for TCAs, Benzo, and THC. Patient admits THAT HE HAS MEDICATIONS. PATIENT AT THIS TIME ADVISED IS FOLLOW-UP WITH HIS NEUROLOGY. DISCUSSED THAT HIS BRAIN STIMULATOR MAY NEED TO HAVE AN ADJUSTMENT. PATIENT AGREES. DISCUSSED APPROPRIATE CARE AND FOLLOW-UP. ALL QUESTIONS ANSWERED. - Lab Data Result diagrams: 12/07/18 12:15 12/07/18 12:15 Lab Results 12/07/18 12/07/18 12/07/18 Range/Units 12:15 12:15 12:30 WBC 7.1 (3.8-10.6) k/uL RBC 4.88 (4.30-5.90) m/uL Hgb 15.4 (13.0-17.5) gm/dL Hct 44.8 (39.0-53.0) % MCV 91.9 (80.0-100.0) fL MCH 31.6 (25.0-35.0) pg MCHC 34.3 (31.0-37.0) g/dL RDW 14.6 (11.5-15.5) % Plt Count 224 (150-450) k/uL Neutrophils % 77 % Lymphocytes % 16 % Monocytes % 5 % Eosinophils % 1 % Basophils % 0 % Neutrophils # 5.5 (1.3-7.7) k/uL Lymphocytes # 1.2 (1.0-4.8) k/uL Monocytes # 0.3 (0-1.0) k/uL Eosinophils # 0.1 (0-0.7) k/uL Basophils # 0.0 (0-0.2) k/uL Sodium 142 (137-145) mmol/L Potassium 3.9 (3.5-5.1) mmol/L Chloride 105 (98-107) mmol/L Carbon Dioxide 30 (22-30) mmol/L Anion Gap 7 mmol/L BUN 10 (9-20) mg/dL Creatinine 0.99 (0.66-1.25) mg/dL Est GFR (CKD-EPI)AfAm >90 (>60 ml/min/1.73 sqM) Est GFR (CKD-EPI)NonAf >90 (>60 ml/min/1.73 sqM) Glucose 102 H (74-99) mg/dL Calcium 9.7 (8.4-10.2) mg/dL Total Bilirubin 0.5 (0.2-1.3) mg/dL AST 26 (17-59) U/L ALT 44 (21-72) U/L Alkaline Phosphatase 70 (38-126) U/L Total Protein 7.4 (6.3-8.2) g/dL Albumin 4.6 (3.5-5.0) g/dL Urine Color Light Yellow Urine Appearance Clear (Clear) Urine pH 7.5 (5.0-8.0) Ur Specific [place] 1.005 (1.001-1.035) Urine Protein Negative (Negative) Urine Glucose (UA) Negative (Negative) Urine Ketones Negative (Negative) Urine Blood Negative (Negative) Urine Nitrite Negative (Negative) Urine Bilirubin Negative (Negative) Urine Urobilinogen <2.0 (<2.0) mg/dL Ur Leukocyte Esterase Negative (Negative) Urine Opiates Screen Not Detected (NotDetected) Ur Oxycodone Screen Not Detected (NotDetected) Urine Methadone Screen Not Detected (NotDetected) Ur Propoxyphene Screen Not Detected (NotDetected) Ur Barbiturates Screen Detected H (NotDetected) U Tricyclic Antidepress Not Detected (NotDetected) Ur Phencyclidine Scrn Not Detected (NotDetected) Ur Amphetamines Screen Not Detected (NotDetected) U Methamphetamines Scrn Not Detected (NotDetected) U Benzodiazepines Scrn Detected H (NotDetected) Urine Cocaine Screen Not Detected (NotDetected) U Marijuana (THC) Screen Detected H (NotDetected) Disposition Clinical Impression: Seizure disorder Disposition: HOME SELF-CARE Instructions (If sedation given, give patient instructions): Recurrent Seizures in Adults (ED) Additional Instructions: Patient has have close follow-up with primary care doctor and her neurologist. Return to emergency department if any alarming signs or symptoms occur. Is patient prescribed a controlled substance at d/c from ED?: No Referrals: Mazin Jay MD [Primary Care Provider] - 1-2 days Time of Disposition: 13:15
[2018-12-07 12:34] LABS: Basophils % (A) 0 %; Eosinophils # (A) 0.1 k/uL (0-0.7); Eosinophils % (A) 1 %; HCT 44.8 % (39.0-53.0); HGB 15.4 gm/dL (13.0-17.5); Lymphocytes # (A) 1.2 k/uL (1.0-4.8); Lymphocytes % (A) 16 %; MCH 31.6 pg (25.0-35.0); MCHC 34.3 g/dL (31.0-37.0); MCV 91.9 fL (80.0-100.0); Mean Platelet Volume 8.2; Monocytes # (A) 0.3 k/uL (0-1.0); Monocytes % (A) 5 %; Neutrophils # (A) 5.5 k/uL (1.3-7.7); Neutrophils % (A) 77 %; Platelet Count 224 k/uL (150-450); RBC 4.88 m/uL (4.30-5.90); RDW 14.6 % (11.5-15.5); WBC 7.1 k/uL (3.8-10.6)
[2018-12-07 12:43] LABS: ALT 44 U/L (21-72); AST 26 U/L (17-59); Albumin 4.6 g/dL (3.5-5.0); Alkaline Phosphatase 70 U/L (38-126); Anion Gap 7 mmol/L; Blood Urea Nitrogen 10 mg/dL (9-20); Calcium 9.7 mg/dL (8.4-10.2); Carbon Dioxide 30 mmol/L (22-30); Chloride 105 mmol/L (98-107); Glucose 102 mg/dL (74-99); Potassium 3.9 mmol/L (3.5-5.1); Sodium 142 mmol/L (137-145); Total Bilirubin 0.5 mg/dL (0.2-1.3); Total Protein 7.4 g/dL (6.3-8.2)
[2018-12-07 12:45] LABS: Appearance,Urine Clear (Clear); Bilirubin,Urine Negative (Negative); Blood,Urine Negative (Negative); Color,Urine Light Yellow; Glucose,Urine (UA) Negative (Negative); Ketones,Urine Negative (Negative); Leukocyte Esterase,Urine Negative (Negative); Nitrite,Urine Negative (Negative); PH, Urine 7.5 (5.0-8.0); Protein,Urine Negative (Negative); Specific Gravity,Urine 1.005 (1.001-1.035); Urobilinogen,Urine <2.0 mg/dL (<2.0)
[2018-12-07 12:57] LABS: Amphetamine Screen,Urine Not Detected (NotDetected); Barbiturate Screen,Urine Detected (NotDetected); Benzodiazepines Screen,Urine Detected (NotDetected); Cocaine Screen,Urine Not Detected (NotDetected); Methadone Screen, Urine Not Detected (NotDetected); Opiate Screen,Urine Not Detected (NotDetected); Oxycodone Screen, Urine Not Detected (NotDetected); Phencyclidine Screen,Urine Not Detected (NotDetected); Tricyclic Antidepressant,Urine Not Detected (NotDetected); Urn Cannabinoid Scrn Detected (NotDetected)
[2018-12-07 14:03] VITALS: BP 107/73; PULSE 50; RESP 19; TEMP 98
== END 2018-12-07 13:50 | disposition home or self-care (01) ==
LOC: EC 11:51
DX: G40.909 Epilepsy, unspecified, not intractable, without status epilepticus (principal); R53.83 Other fatigue; J45.909 Unspecified asthma, uncomplicated; F32.9 Major depressive disorder, single episode, unspecified; F17.200 Nicotine dependence, unspecified, uncomplicated; Z79.899 Other long term (current) drug therapy; Z79.51 Long term (current) use of inhaled steroids; Z88.8 Allergy status to other drugs, medicaments and biological substances; Z88.5 Allergy status to narcotic agent
CPT/HCPCS: 36415; 80053; 80306; 81003; 85025; 93005; 96360; 99285

== ENCOUNTER 2019-02-01 22:01 | Emergency (ER) | payer MEDICARE, OTHER ==
[2019-02-01 22:26] VITALS: TEMP 98.4
--- NOTE | 2019-02-01 23:05 | ED ---
Seizure HPI - General Chief Complaint: Seizure Stated Complaint: Seizure/Asthma Time Seen by Provider: 02/01/19 23:05 Source: patient, EMS Mode of arrival: EMS - History of Present Illness Initial Comments: Tristan is a 33-year-old male with extensive history of seizure disorder and multiple brain surgeries in the past. Patient reports he typically is tender 20 seizures daily. Patient reports that today he was standing when he had an absence seizure resulting in him falling backwards and striking his low back and in his head on the ground. Patient reports that since that time is developed a headache which she describes as an aching nondietary intensity. He is also noted an abrasion on his back which prompted him to come to ER for further evaluation. Patient reports his tetanus was last updated 2-3 years ago. Patient reports that he has been absolutely compliant with all of his medications including his antiepileptics. He recently saw his neurologist in [place] last month and has not had any medication changes recently. - Related Data Home Medications Medication Instructions Recorded Confirmed Albuterol Sulfate [Ventolin HFA] 2 puff INHALATION RT-Q4H PRN 11/10/14 02/01/19 Lacosamide [Vimpat] 400 mg PO HS 01/19/18 02/01/19 Pregabalin [Lyrica] 300 mg PO TID 01/19/18 02/01/19 Onfi 20mg 20 mg PO BID 01/20/18 02/01/19 Beclomethasone Dipropionate [Qvar 40 mcg INHALATION RT-DAILY 02/01/19 02/01/19 40 mcg Redihaler] Lacosamide [Vimpat] 200 mg PO BID@0600,1200 02/01/19 02/01/19 Allergies Allergy/AdvReac Type Severity Reaction Status Date / Time brivaracetam [From Briviact] Allergy Unknown Verified 02/01/19 22:55 levetiracetam [From Keppra] AdvReac anger Verified 02/01/19 22:55 morphine AdvReac palpitation Verified 02/01/19 22:55 s Review of Systems ROS Statement: Those systems with pertinent positive or pertinent negative responses have been documented in the HPI. ROS Other: All systems not noted in ROS Statement are negative. Past Medical History Past Medical History: Asthma, GERD/Reflux, Renal Disease, Seizure Disorder Additional Past Medical History / Comment(s): Nephrolithiasis, History of Any Multi-Drug Resistant Organisms: None Reported Past Surgical History: Ear Surgery Additional Past Surgical History / Comment(s): 10 BRAIN SURGERIES incuding implants and impulse procedures done at [facility], bilateral myringotomy/tubes. Past Anesthesia/Blood Transfusion Reactions: No Reported Reaction Past Psychological History: Depression Smoking Status: Current every day smoker Past Alcohol Use History: Occasional, Rare Past Drug Use History: Marijuana - Past Family History Father Family Medical History: Myocardial Infarction (GA) Additional Family Medical History / Comment(s): Father of a GA at the age of 53 yrs. Mother Family Medical History: No Reported History General Exam - General Exam Comments Initial Comments: Physical Exam GENERAL: Patient is well-developed and well-nourished. Patient is nontoxic and well-hydrated and is in no distress. HENT: Atraumatic. EYES: PERRL, EOMI PULMONARY: Unlabored respirations CARDIOVASCULAR: RRR ABDOMEN: Soft and nontender with normal bowel sounds. SKIN: Abrasion over the lumbar spine, midline approximately levels L1 to L3 small superficial abrasion over the left scapula : Deferred NEUROLOGIC: Patient is alert and oriented x3. Moving all extremities spontaneously MUSCULOSKELETAL: Normal extremities with adequate strength and full range of motion. No lower extremity swelling or edema. No calf tenderness. PSYCHIATRIC: Normal psychiatric evaluation Course Vital Signs 02/01/19 02/02/19 22:17 03:58 Temperature 98.4 F 98.4 F Pulse Rate 69 56 L Respiratory 18 17 Rate Blood Pressure 112/65 122/94 O2 Sat by Pulse 96 100 Oximetry Medical Decision Making - Medical Decision Making The patient was seen and evaluated history is obtained from the patient as well as mother bedside Patient had an absence seizure falling backwards striking his head Labs and imaging were ordered Labs last hypokalemia which was replaced by mouth, no other significant abnormalities CT imaging as well as x-rays reveal no acute injuries Patient's headache and back discomfort improved with Tylenol and Toradol Results were discussed with the patient who is been in the ER for a number of hours with no further significant seizure activity, resolution of his headache, at this time patient's comfortable with plan for discharge home he will contact his neurologist about the frequency of his seizures. All questions pertaining care were answered return parameters were discussed patient was discharged home in stable condition. - Lab Data Result diagrams: 02/02/19 00:07 02/02/19 00:07 Lab Results 02/02/19 02/02/19 Range/Units 00:07 00:07 WBC 8.3 (3.8-10.6) k/uL RBC 4.27 L (4.30-5.90) m/uL Hgb 13.5 (13.0-17.5) gm/dL Hct 40.1 (39.0-53.0) % MCV 93.9 (80.0-100.0) fL MCH 31.6 (25.0-35.0) pg MCHC 33.6 (31.0-37.0) g/dL RDW 14.5 (11.5-15.5) % Plt Count 220 (150-450) k/uL Neutrophils % 52 % Lymphocytes % 36 % Monocytes % 5 % Eosinophils % 5 % Basophils % 1 % Neutrophils # 4.3 (1.3-7.7) k/uL Lymphocytes # 3.0 (1.0-4.8) k/uL Monocytes # 0.4 (0-1.0) k/uL Eosinophils # 0.4 (0-0.7) k/uL Basophils # 0.0 (0-0.2) k/uL Sodium 143 (137-145) mmol/L Potassium 3.3 L (3.5-5.1) mmol/L Chloride 114 H (98-107) mmol/L Carbon Dioxide 24 (22-30) mmol/L Anion Gap 5 mmol/L BUN 13 (9-20) mg/dL Creatinine 0.89 (0.66-1.25) mg/dL Est GFR (CKD-EPI)AfAm >90 (>60 ml/min/1.73 sqM) Est GFR (CKD-EPI)NonAf >90 (>60 ml/min/1.73 sqM) Glucose 72 L (74-99) mg/dL Calcium 7.3 L (8.4-10.2) mg/dL Total Bilirubin 0.2 (0.2-1.3) mg/dL AST 22 (17-59) U/L ALT 27 (21-72) U/L Alkaline Phosphatase 55 (38-126) U/L Total Protein 5.5 L (6.3-8.2) g/dL Albumin 3.1 L (3.5-5.0) g/dL - EKG Data -: EKG Interpreted by Me EKG Comments: Of seizure. EKG was obtained at 12:23 AM, rate is 55 rhythm is sinus bradycardia there is a normal axis there are normal intervals, OH 138, QRS 100, QTc [address] elevations or depressions no evidence of acute ischemia, infarction or arrhythmia Disposition Clinical Impression: Intractable seizure disorder Disposition: HOME SELF-CARE Condition: Stable Instructions (If sedation given, give patient instructions): Recurrent Seizures in Adults (ED) Is patient prescribed a controlled substance at d/c from ED?: No Referrals: Mazin Jay MD [Primary Care Provider] - 1-2 days
[2019-02-01] MEDS ORDERED: SODIUM CHLORIDE 0.9% 1,000 ML IV STA (23:53)
[2019-02-01] MEDS ORDERED: ACETAMINOPHEN TAB 325 MG TAB PO STA (23:55)
[2019-02-02] MEDS ORDERED: KETOROLAC 30 MG/ML 1 ML VIAL IVP STA (00:06)
[2019-02-02 01:04] LABS: Basophils % (A) 1 %; Eosinophils # (A) 0.4 k/uL (0-0.7); Eosinophils % (A) 5 %; HCT 40.1 % (39.0-53.0); HGB 13.5 gm/dL (13.0-17.5); Lymphocytes % (A) 36 %; MCH 31.6 pg (25.0-35.0); MCHC 33.6 g/dL (31.0-37.0); MCV 93.9 fL (80.0-100.0); Mean Platelet Volume 8.1; Monocytes # (A) 0.4 k/uL (0-1.0); Monocytes % (A) 5 %; Neutrophils # (A) 4.3 k/uL (1.3-7.7); Neutrophils % (A) 52 %; Platelet Count 220 k/uL (150-450); RBC 4.27 m/uL (4.30-5.90); RDW 14.5 % (11.5-15.5); WBC 8.3 k/uL (3.8-10.6)
[2019-02-02 01:20] LABS: ALT 27 U/L (21-72); AST 22 U/L (17-59); African American GFR (CKD) >90 (>60 ml/min/1.73 sqM); Albumin 3.1 g/dL (3.5-5.0); Alkaline Phosphatase 55 U/L (38-126); Anion Gap 5 mmol/L; Blood Urea Nitrogen 13 mg/dL (9-20); Calcium 7.3 mg/dL (8.4-10.2); Carbon Dioxide 24 mmol/L (22-30); Chloride 114 mmol/L (98-107); Glucose 72 mg/dL (74-99); Potassium 3.3 mmol/L (3.5-5.1); Sodium 143 mmol/L (137-145); Total Bilirubin 0.2 mg/dL (0.2-1.3); Total Protein 5.5 g/dL (6.3-8.2)
[2019-02-02] MEDS ORDERED: POTASSIUM CHLORIDE ER 20 MEQ TAB.ER PO STA (01:27)
--- NOTE | 2019-02-02 02:28 | XR ---
EXAM: XR Thoracic Spine, 3 Views CLINICAL HISTORY: ITS.REASON XR Reason: Pain TECHNIQUE: Frontal, lateral and swimmer's views of the thoracic spine. COMPARISON: No relevant prior studies available. FINDINGS: Vertebrae: Unremarkable. No acute fracture. Normal alignment. Mild degenerative changes. Soft tissues: Unremarkable. IMPRESSION: No radiographic evidence of acute fracture.
--- NOTE | 2019-02-02 02:30 | XR ---
EXAM: XR Lumbar Spine, 2 or 3 Views CLINICAL HISTORY: ITS.REASON XR Reason: Pain TECHNIQUE: Frontal and lateral views of the lumbar spine. COMPARISON: No relevant prior studies available. FINDINGS: Vertebrae: Unremarkable. No acute fracture. Normal alignment. Soft tissues: Unremarkable. IMPRESSION: No radiographic evidence of acute fracture.
--- NOTE | 2019-02-02 02:54 | CT ---
EXAM: CT Head Without Intravenous Contrast CLINICAL HISTORY: ITS.REASON CT Reason: seizure activity TECHNIQUE: Axial computed tomography images of the head/brain without intravenous contrast. CTDI is 49.1 mGy and DLP is 1176 mGy-cm. This CT exam was performed using one or more of the following dose reduction techniques: automated exposure control, adjustment of the mA and/or kV according to patient size, and/or use of iterative reconstruction technique. COMPARISON: No relevant prior studies available. FINDINGS: Brain: No definite evidence of acute intracranial hemorrhage, however, subtle hemorrhage could be missed on this exam. Midline shift: No midline shift or herniation. Ventricles: Unremarkable. No ventriculomegaly. Bones/joints: See below. Soft tissues: Unremarkable. Sinuses: Complete opacification of the right maxillary sinus. Mastoid air cells: Unremarkable as visualized. Tubes, lines and devices: Extensive postoperative findings in the calvarium with an implanted device in the left parietal bone and numerous leads extending into the left cerebral hemisphere. Extensive beam hardening artifact from these leads degrades evaluation of the brain parenchyma. IMPRESSION: 1. Extensive postoperative findings in the calvarium with an implanted device in the left parietal bone and numerous leads extending into the left cerebral hemisphere. Extensive beam hardening artifact from these leads degrades evaluation of the brain parenchyma. 2. No definite evidence of acute intracranial hemorrhage, however, subtle hemorrhage could be missed on this exam.
[2019-02-02 03:59] VITALS: BP 122/94; PULSE 56; RESP 17
== END 2019-02-02 03:36 | disposition home or self-care (01) ==
LOC: EC 22:01
DX: G40.911 Epilepsy, unspecified, intractable, with status epilepticus (principal); R00.1 Bradycardia, unspecified; E87.6 Hypokalemia; S30.810A Abrasion of lower back and pelvis, initial encounter; S40.212A Abrasion of left shoulder, initial encounter; F17.200 Nicotine dependence, unspecified, uncomplicated; J45.909 Unspecified asthma, uncomplicated; Z79.51 Long term (current) use of inhaled steroids; Z79.899 Other long term (current) drug therapy; Z88.5 Allergy status to narcotic agent; Z88.8 Allergy status to other drugs, medicaments and biological substances; Z96.89 Presence of other specified functional implants; Z98.890 Other specified postprocedural states; W01.0XXA Fall on same level from slipping, tripping and stumbling without subsequent striking against object, initial encounter
CPT/HCPCS: 99285; 96374; 96361; 36415; 93005; 80053; 85025; 72070; 72100; 70450; J1885

== ENCOUNTER 2019-08-22 18:55 | Emergency (ER) | payer MEDICARE, OTHER ==
[2019-08-22 19:05] VITALS: TEMP 97.9
[2019-08-22] MEDS ORDERED: LIDOCAINE 1% INJ 10MG/ML (20 ML MDV) SQ ONE (19:13)
[2019-08-22 19:38] LABS: Basophils # (A) 0.1 k/uL (0-0.2); Basophils % (A) 2 %; Eosinophils # (A) 0.3 k/uL (0-0.7); Eosinophils % (A) 5 %; HCT 44.3 % (39.0-53.0); HGB 14.6 gm/dL (13.0-17.5); Lymphocytes # (A) 1.7 k/uL (1.0-4.8); Lymphocytes % (A) 29 %; MCH 31.3 pg (25.0-35.0); MCV 94.8 fL (80.0-100.0); Mean Platelet Volume 8.3; Monocytes # (A) 0.3 k/uL (0-1.0); Monocytes % (A) 5 %; Neutrophils # (A) 3.4 k/uL (1.3-7.7); Neutrophils % (A) 58 %; Platelet Count 191 k/uL (150-450); RBC 4.67 m/uL (4.30-5.90); RDW 13.8 % (11.5-15.5); WBC 5.9 k/uL (3.8-10.6)
--- NOTE | 2019-08-22 19:40 | ED ---
Seizure HPI - General Chief Complaint: Seizure Stated Complaint: seizures Time Seen by Provider: 08/22/19 19:00 Source: patient, EMS Mode of arrival: EMS Limitations: no limitations - History of Present Illness Initial Comments: The patient is a 33-year-old male with long-standing history of seizure disorder who presents emergency room after he had a seizure at home. He states he will have upwards of 10 seizures per day. He is on 3 medications and has a brain stimulator. He sees a neurologist at [facility]. States he's been taking his medications as directed. No missed doses. No recent infections. Denies any fevers or chills. No neck pain or symptoms. The patient had a full tonic- clonic seizure at home all backwards and hit his head on a wooden step. He did suffer a laceration. Mother called EMS because of his injury. He was alert and oriented upon EMS arrival. The patient arrives alert and oriented 4. He denies any headaches or visual changes. No nausea or vomiting. Denies any unilateral numbness or weakness. He last saw his neurologist month ago. No recent medication changes. Denies any additional symptoms to include chest pain, shortness of breath, abdominal pain. No tongue biting or incontinence. No alleviating, Percepting or modifying factors - Related Data Home Medications Medication Instructions Recorded Confirmed Albuterol Sulfate [Ventolin HFA] 2 puff INHALATION RT-Q4H PRN 11/10/14 02/01/19 Lacosamide [Vimpat] 400 mg PO HS 01/19/18 02/01/19 Pregabalin [Lyrica] 300 mg PO TID 01/19/18 02/01/19 Onfi 20mg 20 mg PO BID 01/20/18 02/01/19 Beclomethasone Dipropionate [Qvar 40 mcg INHALATION RT-DAILY 02/01/19 02/01/19 40 mcg Redihaler] Lacosamide [Vimpat] 200 mg PO BID@0600,1200 02/01/19 02/01/19 Previous Rx's Medication Instructions Recorded Hydrocodone/Acetaminophen [[place] 1 tab PO Q8HR PRN 2 Days #6 tab 08/22/19 5-325] Allergies Allergy/AdvReac Type Severity Reaction Status Date / Time brivaracetam [From Briviact] Allergy Unknown Verified 02/01/19 22:55 levetiracetam [From [place]] AdvReac anger Verified 02/01/19 22:55 morphine AdvReac palpitation Verified 02/01/19 22:55 s Review of Systems ROS Statement: Those systems with pertinent positive or pertinent negative responses have been documented in the HPI. ROS Other: All systems not noted in ROS Statement are negative. Past Medical History Past Medical History: Asthma, GERD/Reflux, Renal Disease, Seizure Disorder Additional Past Medical History / Comment(s): Nephrolithiasis, History of Any Multi-Drug Resistant Organisms: None Reported Past Surgical History: Ear Surgery Additional Past Surgical History / Comment(s): 10 BRAIN SURGERIES incuding implants and impulse procedures done at [facility], bilateral myringotomy/tubes. Past Anesthesia/Blood Transfusion Reactions: No Reported Reaction Past Psychological History: Depression Smoking Status: Current every day smoker Past Alcohol Use History: Occasional, Rare Past Drug Use History: Marijuana - Past Family History Father Family Medical History: Myocardial Infarction ([place]) Additional Family Medical History / Comment(s): Father of a [place] at the age of 53 yrs. Mother Family Medical History: No Reported History General Exam Limitations: no limitations General appearance: alert, in no apparent distress Head exam: Present: normocephalic, normal inspection, other (laceration left occiput measuring 4.0 x 1.0 cm. No deep structure involvement. No tendon, laceration or nerve involvement. No underlying bony fracture. ) Eye exam: Present: normal appearance, PERRL, EOMI. Absent: scleral icterus, conjunctival injection, periorbital swelling ENT exam: Present: normal exam, mucous membranes moist Neck exam: Present: normal inspection. Absent: tenderness, meningismus, lymphadenopathy Respiratory exam: Present: normal lung sounds bilaterally. Absent: respiratory distress, wheezes, rales, rhonchi, stridor Cardiovascular Exam: Present: regular rate, normal rhythm, normal heart sounds. Absent: systolic murmur, diastolic murmur, rubs, gallop, clicks GI/Abdominal exam: Present: soft, normal bowel sounds. Absent: distended, tenderness, guarding, rebound, rigid Extremities exam: Present: normal inspection, full ROM, normal capillary refill. Absent: tenderness, pedal edema, joint swelling, calf tenderness Back exam: Present: normal inspection Neurological exam: Present: alert, oriented X3, CN II-XII intact Psychiatric exam: Present: normal affect, normal mood Skin exam: Present: warm, dry, intact, normal color. Absent: rash Course Vital Signs 08/22/19 08/22/19 18:58 20:13 Temperature 97.9 F Pulse Rate 99 80 Respiratory 16 18 Rate Blood Pressure 161/113 108/66 O2 Sat by Pulse 100 97 Oximetry Procedures - Laceration Laceration #1 Consent Obtained: verbal consent Indication: laceration Site: scalp Size (cm): 4 (cm) Description: linear Depth: simple, single layer Type of Sutures: other (2 rina) Patient Tolerated Procedure: well, no complications Medical Decision Making - Medical Decision Making Upon arrival the patient is placed into room 4. A thorough history and physical exam was performed. It is present to bedside and helps supplement the history. I did recommend laboratory studies. I did draw a lacosamide level. I discussed getting a CT of the patient's brain is he does have blunt head trauma and the patient did agree to this. Laboratory studies are unremarkable. CT of the patient's brain demonstrates no acute intracranial process. Patient is reevaluated and remains neurologically intact. I did perform staple repair of the patient's laceration. His tetanus is up-to-date at this time. Patient will be discharged home and needs to follow-up with his neurologist within one week. Follow up with his primary care doctor in 2-4 days. Return to the emergency room for any new or worsening symptoms. Patient does request something for his head pain. He has taken [place] in the past. Provide him with 6 tablets. He decided opioid start talking form. Patient was then discharged home in stable condition - Lab Data Result diagrams: 08/22/19 19:28 08/22/19 19:28 Lab Results 08/22/19 08/22/19 Range/Units 19:28 19:28 WBC 5.9 (3.8-10.6) k/uL RBC 4.67 (4.30-5.90) m/uL Hgb 14.6 (13.0-17.5) gm/dL Hct 44.3 (39.0-53.0) % MCV 94.8 (80.0-100.0) fL MCH 31.3 (25.0-35.0) pg MCHC 33.0 (31.0-37.0) g/dL RDW 13.8 (11.5-15.5) % Plt Count 191 (150-450) k/uL Neutrophils % 58 % Lymphocytes % 29 % Monocytes % 5 % Eosinophils % 5 % Basophils % 2 % Neutrophils # 3.4 (1.3-7.7) k/uL Lymphocytes # 1.7 (1.0-4.8) k/uL Monocytes # 0.3 (0-1.0) k/uL Eosinophils # 0.3 (0-0.7) k/uL Basophils # 0.1 (0-0.2) k/uL Sodium 142 (137-145) mmol/L Potassium 3.6 (3.5-5.1) mmol/L Chloride 107 (98-107) mmol/L Carbon Dioxide 29 (22-30) mmol/L Anion Gap 6 mmol/L BUN 10 (9-20) mg/dL Creatinine 0.94 (0.66-1.25) mg/dL Est GFR (CKD-EPI)AfAm >90 (>60 ml/min/1.73 sqM) Est GFR (CKD-EPI)NonAf >90 (>60 ml/min/1.73 sqM) Glucose 80 (74-99) mg/dL Calcium 9.3 (8.4-10.2) mg/dL Total Bilirubin 0.3 (0.2-1.3) mg/dL AST 32 (17-59) U/L ALT 25 (4-49) U/L Alkaline Phosphatase 65 (38-126) U/L Total Protein 6.7 (6.3-8.2) g/dL Albumin 4.1 (3.5-5.0) g/dL - EKG Data EKG Comments: EKG demonstrates normal sinus rhythm with a ventricular rate of 79. IA interval 144. QRS 96. QTC of 424. No acute ST segment elevations or depressions concerning for ischemic changes. No signs of [id number]-[id number] or Brugada syndrome Disposition Clinical Impression: Seizure disorder, Head trauma, Scalp laceration Disposition: HOME SELF-CARE Condition: Stable Instructions (If sedation given, give patient instructions): Staple Care (ED), Recurrent Seizures in Adults (ED) Additional Instructions: Please follow up with your neurologist in 1 week. Follow up with your primary care doctor in 2-4 days. Return to the emergency room for any new or worsening symptoms. You should have your rina taken out in 5-7 days Prescriptions: Hydrocodone/Acetaminophen [[place] 5-325] 1 tab PO Q8HR PRN 2 Days #6 tab PRN Reason: Pain Is patient prescribed a controlled substance at d/c from ED?: Yes When asked, does pt state using other controlled substances?: No If prescribed controlled substance>3 days was MAPS reviewed?: Prescribed <3 Days If opioid is for acute pain is fill amount 7 days or less?: Yes If Rx opioid, was Start Talking consent form obtained?: Yes Referrals: Mazin Jay MD [Primary Care Provider] - 1-2 days Time of Disposition: 20:48
[2019-08-22 19:48] LABS: ALT 25 U/L (4-49); AST 32 U/L (17-59); African American GFR (CKD) >90 (>60 ml/min/1.73 sqM); Albumin 4.1 g/dL (3.5-5.0); Alkaline Phosphatase 65 U/L (38-126); Anion Gap 6 mmol/L; Blood Urea Nitrogen 10 mg/dL (9-20); Calcium 9.3 mg/dL (8.4-10.2); Carbon Dioxide 29 mmol/L (22-30); Chloride 107 mmol/L (98-107); Glucose 80 mg/dL (74-99); Non-African American GFR(CKD) >90 (>60 ml/min/1.73 sqM); Potassium 3.6 mmol/L (3.5-5.1); Sodium 142 mmol/L (137-145); Total Bilirubin 0.3 mg/dL (0.2-1.3); Total Protein 6.7 g/dL (6.3-8.2)
[2019-08-22 20:14] VITALS: BP 108/66; PULSE 80; RESP 18
--- NOTE | 2019-08-22 20:35 | CT ---
EXAMINATION TYPE: CT brain cspine wo con DATE OF EXAM: 08/22/2019 COMPARISON: 02/02/2019 HISTORY: Seizures, posterior head injury. Upper neck pain. CT DLP: 1365.4 mGycm Automated exposure control for dose reduction was used. TECHNIQUE: CT scan of the head and cervical spine are performed without contrast. FINDINGS: Remote craniotomies and dural graft material and intracranial metallic stimulators redemon strated. There is no acute intracranial hemorrhage, mass effect, or midline shift identified. The yadira tricles and sulci are within normal limits in size. The globes are intact . The right adnexal sinus and bilateral ethmoid sinuses show mucosal thickening and/or fluid which can correlate with clinical diagnosis of sinusitis. Remainder the paranasal sinuses are clear. The middle ear cavities and ethmoi d sinus air cells are clear. Bilateral cerumen noted, greater on the left Cervical spine is visualized in its entirety from C1 through upper thoracic levels and demonstrates s atisfactory alignment without evidence of acute fracture or dislocation. Prevertebral soft tissue ap pears within normal limits. The C1-C2 articulation is unremarkable. IMPRESSION: 1. There is no acute fracture or dislocation evident in the cervical spine. 2. No acute intracranial hemorrhage, mass effect, or midline shift is seen.
== END 2019-08-22 21:03 | disposition home or self-care (01) ==
LOC: EC 18:55
DX: G40.909 Epilepsy, unspecified, not intractable, without status epilepticus (principal); S01.01XA Laceration without foreign body of scalp, initial encounter; J45.909 Unspecified asthma, uncomplicated; F17.200 Nicotine dependence, unspecified, uncomplicated; Z88.5 Allergy status to narcotic agent; Z88.8 Allergy status to other drugs, medicaments and biological substances; Z79.51 Long term (current) use of inhaled steroids; Z79.899 Other long term (current) drug therapy; Z96.89 Presence of other specified functional implants; W22.09XA Striking against other stationary object, initial encounter; Y93.89 Activity, other specified
CPT/HCPCS: 36415; 93005; 80053; 85025; 80235; 72125; 70450; 99284; 12002; J2001

== ENCOUNTER 2019-11-21 21:59 | Emergency (ER) | payer MEDICARE, OTHER ==
[2019-11-21] MEDS ORDERED: SODIUM CHLORIDE 0.9% 1,000 ML IV STA (22:18)
[2019-11-21 22:50] LABS: Basophils % (A) 0 %; Eosinophils # (A) 0.3 k/uL (0-0.7); Eosinophils % (A) 5 %; HCT 42.9 % (39.0-53.0); HGB 14.8 gm/dL (13.0-17.5); Lymphocytes # (A) 2.4 k/uL (1.0-4.8); Lymphocytes % (A) 40 %; MCH 31.9 pg (25.0-35.0); MCHC 34.4 g/dL (31.0-37.0); MCV 92.5 fL (80.0-100.0); Mean Platelet Volume 9.6; Monocytes # (A) 0.3 k/uL (0-1.0); Monocytes % (A) 5 %; Neutrophils % (A) 49 %; Platelet Count 192 k/uL (150-450); RBC 4.63 m/uL (4.30-5.90); RDW 13.5 % (11.5-15.5); WBC 6.1 k/uL (3.8-10.6)
[2019-11-21 22:54] LABS: ALT 23 U/L (4-49); AST 31 U/L (17-59); African American GFR (CKD) >90 (>60 ml/min/1.73 sqM); Albumin 4.4 g/dL (3.5-5.0); Alkaline Phosphatase 51 U/L (38-126); Anion Gap 8 mmol/L; Blood Urea Nitrogen 12 mg/dL (9-20); Calcium 9.3 mg/dL (8.4-10.2); Carbon Dioxide 28 mmol/L (22-30); Chloride 104 mmol/L (98-107); Glucose 97 mg/dL (74-99); Non-African American GFR(CKD) >90 (>60 ml/min/1.73 sqM); Potassium 3.9 mmol/L (3.5-5.1); Sodium 140 mmol/L (137-145); Total Bilirubin 0.3 mg/dL (0.2-1.3)
--- NOTE | 2019-11-21 22:56 | XR ---
EXAMINATION TYPE: XR forearm RT DATE OF EXAM: 11/21/2019 COMPARISON: NONE HISTORY: Arm pain TECHNIQUE: 2 views FINDINGS: Radius and ulna appear intact. I see no fracture nor dislocation. There is soft tissue swel ling on the posterior aspect mid shaft of the ulna. IMPRESSION: Soft tissue swelling. No fracture seen.
[2019-11-21 23:11] VITALS: RESP 18
--- NOTE | 2019-11-21 23:55 | ED ---
General Adult HPI - General Chief complaint: Seizure Stated complaint: Seizure, Fall, Arm Injury Time Seen by Provider: 11/21/19 22:03 Source: patient, EMS Mode of arrival: EMS Limitations: no limitations - History of Present Illness Initial comments: 33-year-old male patient presented to the emergency department today for evaluation after experiencing a seizure with injury. Patient states that he does stay lucid during his seizures, states he lost his balance and fell into a door frame injuring his right forearm. Patient states that there is a lot of swelling and he is concerned may be broken so he called an ambulance. He did not hit his head, he did not lose consciousness per Patient states that the seizure unaffected his left arm and left leg. States the seizures usually occur on the right side. Patient states he has been taking Onfi, Vimpat, and Lyrica for management of his seizures. States he has been taking these as directed. Denies any recent illness. Denies any recent weight changes. He is reporting pain to the right mid forearm. Denies any numbness or tingling to his hand. Denies any other injuries. Patient denies any recent rash, fever, chills, cough, shortness of breath, chest pain, abdominal pain, nausea, vomiting, diarrhea, constipation, back pain, dizziness, weakness, hematuria, dysuria, urinary urgency, urinary frequency, headache, visual changes, or any other complaints. - Related Data Home Medications Medication Instructions Recorded Confirmed Albuterol Sulfate [Ventolin HFA] 2 puff INHALATION RT-Q4H PRN 11/10/14 02/01/19 Lacosamide [Vimpat] 400 mg PO HS 01/19/18 02/01/19 Pregabalin [Lyrica] 300 mg PO TID 01/19/18 02/01/19 Onfi 20mg 20 mg PO BID 01/20/18 02/01/19 Beclomethasone Dipropionate [Qvar 40 mcg INHALATION RT-DAILY 02/01/19 02/01/19 40 mcg Redihaler] Lacosamide [Vimpat] 200 mg PO BID@0600,1200 02/01/19 02/01/19 Previous Rx's Medication Instructions Recorded Hydrocodone/Acetaminophen [[place] 1 tab PO Q8HR PRN 2 Days #6 tab 08/22/19 5-325] Allergies Allergy/AdvReac Type Severity Reaction Status Date / Time brivaracetam [From Briviact] Allergy Unknown Verified 11/21/19 22:26 levetiracetam [From Keppra] AdvReac anger Verified 11/21/19 22:26 morphine AdvReac palpitation Verified 11/21/19 22:26 s Review of Systems ROS Statement: Those systems with pertinent positive or pertinent negative responses have been documented in the HPI. ROS Other: All systems not noted in ROS Statement are negative. Past Medical History Past Medical History: Asthma, GERD/Reflux, Renal Disease, Seizure Disorder Additional Past Medical History / Comment(s): Nephrolithiasis, History of Any Multi-Drug Resistant Organisms: None Reported Past Surgical History: Ear Surgery Additional Past Surgical History / Comment(s): 10 BRAIN SURGERIES incuding implants and impulse procedures done at [facility], bilateral myringotomy/tubes. Past Anesthesia/Blood Transfusion Reactions: No Reported Reaction Past Psychological History: ADD/ADHD, Depression Smoking Status: Current every day smoker Past Alcohol Use History: Rare Past Drug Use History: Marijuana - Past Family History Father Family Medical History: Myocardial Infarction ([place]) Additional Family Medical History / Comment(s): Father of a [place] at the age of 53 yrs. Mother Family Medical History: No Reported History General Exam Limitations: no limitations General appearance: alert, in no apparent distress, other (This is a well- developed, well-nourished adult male patient in no acute distress. Vital signs upon presentation are temperature 98.1F, pulse 81, respirations 16, blood pressure 121/80, pulse ox 97% on room air.) Eye exam: Present: normal appearance, PERRL, EOMI. Absent: scleral icterus, conjunctival injection, nystagmus, periorbital swelling ENT exam: Present: normal exam, normal oropharynx, mucous membranes moist Respiratory exam: Present: normal lung sounds bilaterally. Absent: respiratory distress, wheezes, rales, rhonchi, stridor Cardiovascular Exam: Present: regular rate, normal rhythm, normal heart sounds. Absent: systolic murmur, diastolic murmur, rubs, gallop, clicks GI/Abdominal exam: Present: soft, normal bowel sounds. Absent: distended, tenderness, guarding, rebound, rigid Extremities exam: Present: full ROM, tenderness (Tenderness to the right mid forearm), normal capillary refill, other (There is soft tissue swelling, abrasion, ecchymosis noted to the right mid forearm. There does appear to be presence of hematoma. Skin is otherwise pink, warm, dry. Cap refills less than 3 seconds. Radial pulses are 2+ and equal bilaterally.). Absent: normal inspection, pedal edema, joint swelling, calf tenderness Neurological exam: Present: alert, oriented X3, CN II-XII intact Psychiatric exam: Present: normal affect, normal mood Skin exam: Present: warm, dry, intact, normal color. Absent: rash Course Vital Signs 11/21/19 11/21/19 11/22/19 22:21 23:09 00:11 Temperature 98.1 F 98.2 F Pulse Rate 81 60 58 L Respiratory 16 18 18 Rate Blood Pressure 121/80 104/71 105/64 O2 Sat by Pulse 97 95 95 Oximetry EKG Findings - EKG Comments: EKG Findings:: EKG obtained at 2225 shows normal sinus rhythm with a ventricular rate of 63, MN interval 156, QRS duration 96, QT 396, QTc 405. No evidence of ST elevation or depression. Medical Decision Making - Medical Decision Making 33-year-old male patient presented to the emergency department today for evaluat ion of right forearm injury after having a seizure. Physical examination did reveal soft tissue swelling, abrasion, ecchymosis, hematoma to the right mid forearm. Good neurovascular status. EKG showed normal sinus rhythm. Labs are unremarkable. X-ray of the forearm is negative for any signs of fracture. We will discharge with instructions to rest, ice, elevate the arm. He is instructed to follow up with his primary care physician is neurologist for further evaluation. Return parameters were discussed in detail. He verbalizes understanding and agrees with this plan. - Lab Data Result diagrams: 11/21/19 22:10 11/21/19 22:10 Lab Results 11/21/19 11/21/19 Range/Units 22:10 22:10 WBC 6.1 (3.8-10.6) k/uL RBC 4.63 (4.30-5.90) m/uL Hgb 14.8 (13.0-17.5) gm/dL Hct 42.9 (39.0-53.0) % MCV 92.5 (80.0-100.0) fL MCH 31.9 (25.0-35.0) pg MCHC 34.4 (31.0-37.0) g/dL RDW 13.5 (11.5-15.5) % Plt Count 192 (150-450) k/uL Neutrophils % 49 % Lymphocytes % 40 % Monocytes % 5 % Eosinophils % 5 % Basophils % 0 % Neutrophils # 3.0 (1.3-7.7) k/uL Lymphocytes # 2.4 (1.0-4.8) k/uL Monocytes # 0.3 (0-1.0) k/uL Eosinophils # 0.3 (0-0.7) k/uL Basophils # 0.0 (0-0.2) k/uL Sodium 140 (137-145) mmol/L Potassium 3.9 (3.5-5.1) mmol/L Chloride 104 (98-107) mmol/L Carbon Dioxide 28 (22-30) mmol/L Anion Gap 8 mmol/L BUN 12 (9-20) mg/dL Creatinine 1.05 (0.66-1.25) mg/dL Est GFR (CKD-EPI)AfAm >90 (>60 ml/min/1.73 sqM) Est GFR (CKD-EPI)NonAf >90 (>60 ml/min/1.73 sqM) Glucose 97 (74-99) mg/dL Calcium 9.3 (8.4-10.2) mg/dL Total Bilirubin 0.3 (0.2-1.3) mg/dL AST 31 (17-59) U/L ALT 23 (4-49) U/L Alkaline Phosphatase 51 (38-126) U/L Total Protein 7.0 (6.3-8.2) g/dL Albumin 4.4 (3.5-5.0) g/dL - Radiology Data Radiology results: report reviewed, image reviewed 2 views of the right forearm were obtained. Report was reviewed in its entirety. Impression by Dr. Arroyo shows soft tissue swelling. No fracture seen. Disposition Clinical Impression: Traumatic hematoma of right forearm, Abrasion of right forearm, Recurrent seizures Disposition: HOME SELF-CARE Condition: Good Instructions (If sedation given, give patient instructions): Abrasion (ED), Recurrent Seizures in Adults (ED), Hematoma (ED) Additional Instructions: Apply ice to the right forearm. Keep wounds clean and dry. Continue seizure medication the follow-up with your neurologist for recheck as soon as possible. Return to the emergency department immediately for any new, worsening, or concerning symptoms. Is patient prescribed a controlled substance at d/c from ED?: No Referrals: Mazin Jay MD [Primary Care Provider] - 1-2 days Time of Disposition: 23:54
[2019-11-22 00:12] VITALS: BP 105/64; PULSE 58; TEMP 98.2
== END 2019-11-22 00:11 | disposition home or self-care (01) ==
LOC: EC 21:59
DX: G40.909 Epilepsy, unspecified, not intractable, without status epilepticus (principal); S50.11XA Contusion of right forearm, initial encounter; F17.200 Nicotine dependence, unspecified, uncomplicated; J45.909 Unspecified asthma, uncomplicated; Z79.51 Long term (current) use of inhaled steroids; Z79.899 Other long term (current) drug therapy; Z88.5 Allergy status to narcotic agent; Z88.8 Allergy status to other drugs, medicaments and biological substances; W18.39XA Other fall on same level, initial encounter; Y92.239 Unspecified place in hospital as the place of occurrence of the external cause
CPT/HCPCS: 36415; 80053; 80235; 85025; 93005; 96360; 99284

== ENCOUNTER 2020-04-12 13:21 | Emergency (ER) | payer MEDICARE ==
[2020-04-12 13:38] VITALS: TEMP 98.3
[2020-04-12] MEDS ORDERED: HYDROcodone/APAP 7.5-325MG 1 EACH TAB PO ONE (14:09)
--- NOTE | 2020-04-12 14:27 | ED ---
General Adult HPI - General Source: patient, family, RN notes reviewed, old records reviewed Mode of arrival: wheelchair Limitations: no limitations <Jose Sorto - Last Filed: 04/12/20 14:54> <Jose Jewell - Last Filed: 04/12/20 16:34> - General Chief complaint: Seizure Stated complaint: Seizure - History of Present Illness Initial comments: This a 34-year-old male presents emergency Department with a past medical history significant for seizures. Patient has a intracranial implant to prevent seizures and he states he doesn't pretty good job occasions breakthrough seizure. Patient was alone today and when family found him he had an abrasion to his left cheek and has a small abrasion to his skull. Patient states he believes he had a seizure and he feels like he normally does after a seizure. Patient denies any recent fever chills. Patient states he has a slight headache and slight neck pain. Patient has no blurred vision or double vision. Patient denies chest pain difficult breathing shortest breath per patient denies any extremity pain. (Jose Sorto) - Related Data Home Medications Medication Instructions Recorded Confirmed Albuterol Sulfate [Ventolin HFA] 2 puff INHALATION RT-Q4H PRN 11/10/14 02/01/19 Lacosamide [Vimpat] 400 mg PO HS 01/19/18 02/01/19 Pregabalin [Lyrica] 300 mg PO TID 01/19/18 02/01/19 Onfi 20mg 20 mg PO BID 01/20/18 02/01/19 Beclomethasone Dipropionate [Qvar 40 mcg INHALATION RT-DAILY 02/01/19 02/01/19 40 mcg Redihaler] Lacosamide [Vimpat] 200 mg PO BID@0600,1200 02/01/19 02/01/19 Previous Rx's Medication Instructions Recorded Hydrocodone/Acetaminophen [[place] 1 tab PO Q8HR PRN 2 Days #6 tab 08/22/19 5-325] Allergies Allergy/AdvReac Type Severity Reaction Status Date / Time bee pollen Allergy Anaphylaxis Verified 04/12/20 13:38 brivaracetam [From Briviact] Allergy Unknown Verified 04/12/20 13:38 levetiracetam [From Keppra] AdvReac anger Verified 04/12/20 13:38 morphine AdvReac palpitation Verified 04/12/20 13:38 s Review of Systems ROS Other: All systems not noted in ROS Statement are negative. <Jose Sorto - Last Filed: 04/12/20 14:54> ROS Other: All systems not noted in ROS Statement are negative. <Jose Jewell - Last Filed: 04/12/20 16:34> ROS Statement: Those systems with pertinent positive or pertinent negative responses have been documented in the HPI. Past Medical History Past Medical History: Asthma, GERD/Reflux, Renal Disease, Seizure Disorder Additional Past Medical History / Comment(s): Nephrolithiasis, seizures History of Any Multi-Drug Resistant Organisms: None Reported Past Surgical History: Ear Surgery Additional Past Surgical History / Comment(s): 10 BRAIN SURGERIES incuding implants and impulse procedures done at [facility], bilateral myringotomy/tubes. Past Anesthesia/Blood Transfusion Reactions: No Reported Reaction Past Psychological History: ADD/ADHD, Depression Smoking Status: Current every day smoker Past Alcohol Use History: Rare Past Drug Use History: Marijuana - Past Family History Father Family Medical History: Myocardial Infarction ([place]) Additional Family Medical History / Comment(s): Father of a [place] at the age of 53 yrs. Mother Family Medical History: No Reported History <Jose Sorto - Last Filed: 04/12/20 14:54> General Exam Limitations: no limitations <Jose Sorto - Last Filed: 04/12/20 14:54> Limitations: altered mental status (Mildly slow at baseline) General appearance: alert, in no apparent distress Head exam: Present: atraumatic, normocephalic, normal inspection Eye exam: Present: normal appearance, PERRL, EOMI. Absent: scleral icterus, conjunctival injection, periorbital swelling ENT exam: Present: normal exam, mucous membranes moist Neck exam: Present: normal inspection. Absent: tenderness, meningismus, lymphadenopathy Respiratory exam: Absent: respiratory distress Cardiovascular Exam: Present: regular rate, normal rhythm Extremities exam: Present: normal inspection, full ROM, normal capillary refill. Absent: tenderness, pedal edema, joint swelling, calf tenderness Back exam: Present: normal inspection Neurological exam: Present: alert, oriented X3, CN II-XII intact Psychiatric exam: Present: normal affect, normal mood Skin exam: Present: warm, dry, intact, normal color. Absent: rash <Jose Jewell - Last Filed: 04/12/20 16:34> - General Exam Comments Initial Comments: GENERAL: Patient is well-developed and well-nourished. Patient is nontoxic and well- hydrated and is in mild distress. ENT: Neck is soft and supple. No significant lymphadenopathy is noted. Oropharynx is clear. Moist mucous membranes. Neck has full range of motion without eliciting any pain. EYES: The sclera were anicteric and conjunctiva were pink and moist. Extraocular movements were intact and pupils were equal round and reactive to light. Eyelids were unremarkable. Patient has abrasion underneath the left eye with tenderness PULMONARY: Unlabored respirations. Good breath sounds bilaterally. No audible rales rhonchi or wheezing was noted. CARDIOVASCULAR: There is a regular rate and rhythm without any murmurs gallops or rubs. ABDOMEN: Soft and nontender with normal bowel sounds. No palpable organomegaly was noted. There is no palpable pulsatile mass. SKIN: Skin is clear with no lesions or rashes and otherwise unremarkable. NEUROLOGIC: Patient is alert and oriented x3. Cranial nerves II through XII are grossly intact. Motor and sensory are also intact. Normal speech, volume and content. Symmetrical smile. MUSCULOSKELETAL: Normal extremities with adequate strength and full range of motion. No lower ex tremity swelling or edema. No calf tenderness. LYMPHATICS: No significant lymphadenopathy is noted PSYCHIATRIC: Normal psychiatric evaluation. (Jose Sorto) Course <Jose Jewell - Last Filed: 04/12/20 16:34> Vital Signs 04/12/20 04/12/20 13:34 16:23 Temperature 98.3 F Pulse Rate 79 61 Respiratory 18 16 Rate Blood Pressure 114/74 109/68 O2 Sat by Pulse 100 98 Oximetry - Reevaluation(s) Reevaluation #1: 04/12/20 16:33 Medical records reviewed (Jose Jewell) Reevaluation #2: 04/12/20 16:33 Patient informed of results and questions answered (Jose Jewell) Medical Decision Making <Jose Sorto - Last Filed: 04/12/20 14:54> - Radiology Data Radiology results: report reviewed (CT brain C-spine and facial bones negative for acute disease), image reviewed <Jose Jewell - Last Filed: 04/12/20 16:34> - Medical Decision Making Dr. Jewell will be taking over the care of this patient at 3 PM (Jose Sorto) 34 male to the ER for evaluation. Patient believes he may have had likely seizure was found of the ground tonight Patient had injury no acute bleeding, fractures. Patient can be discharged home (Jose Jewell) Disposition <Jose Sorto - Last Filed: 04/12/20 14:54> Is patient prescribed a controlled substance at d/c from ED?: No <Jose Jewell - Last Filed: 04/12/20 16:34> Clinical Impression: Seizure disorder, Head injuries Disposition: HOME SELF-CARE Condition: Good Instructions (If sedation given, give patient instructions): Recurrent Seizures in Adults (ED) Referrals: Mazin Jay MD [Primary Care Provider] - 1-2 days
--- NOTE | 2020-04-12 15:40 | CT ---
EXAMINATION TYPE: CT orbits wo con DATE OF EXAM: 04/12/2020 COMPARISON: 10/11/2016 HISTORY: Seizure today. Left sided facial injury. CT DLP: 649 mGycm Automated exposure control for dose reduction was used. FINDINGS: There is complete opacification of the right maxillary sinus compatible with chronic sinusitis. Oral structures are symmetric. Changes of chronic ethmoidal sinusitis noted. Clip is seen with metall ic artifact intracranially correlate for previous aneurysm or surgery. Visualized osseous structures intact. Intraorbital contents are intact. IMPRESSION: CHRONIC SINUSITIS WITH NO ACUTE FRACTURE.
--- NOTE | 2020-04-12 15:53 | CT ---
EXAMINATION TYPE: CT brain cspine wo con DATE OF EXAM: 04/12/2020 COMPARISON: CT brain and cervical spine 08/22/2019 HISTORY: Seizure today. Left sided facial injury. CT DLP: 995.4 mGycm Automated exposure control for dose reduction was used. TECHNIQUE: CT scan of the head and cervical spine are performed without contrast. FINDINGS: Redemonstrated craniotomies and implanted device of the left parietal bone with numerous leads into the left cerebral hemisphere, with significant streak artifact. There is no visualized acu te intracranial hemorrhage, mass effect, or midline shift identified. The ventricles and sulci are w ithin normal limits in size. The globes are grossly symmetric. There is opacification of the right m axillary sinus. Soft tissue density in the right external auditory canal likely cerumen. Cervical spine is visualized in its entirety from C1 through upper thoracic levels and demonstrates m ild reversal of the cervical lordosis. No evidence of acute fracture or dislocation. Prevertebral so ft tissue appears within normal limits. The C1-C2 articulation is unremarkable. IMPRESSION: 1. There is no acute fracture or dislocation evident in the cervical spine. 2. No acute intracranial hemorrhage, mass effect, or midline shift is seen. 3. Craniotomy and implanted stimulator device post surgical changes with streak artifact. 4. Opacification of the right maxillary sinus.
[2020-04-12 16:25] VITALS: BP 109/68; PULSE 61; RESP 16
[2020-04-12] MEDS ORDERED: ACET/COD 300 MG/30 MG STARTER PACK 6 TAB BTL PO STA (16:57)
== END 2020-04-12 16:55 | disposition home or self-care (01) ==
LOC: EC 13:21
DX: G40.909 Epilepsy, unspecified, not intractable, without status epilepticus (principal); S00.81XA Abrasion of other part of head, initial encounter; M54.2 Cervicalgia; J45.909 Unspecified asthma, uncomplicated; F17.200 Nicotine dependence, unspecified, uncomplicated; Z79.51 Long term (current) use of inhaled steroids; Z88.5 Allergy status to narcotic agent; Z88.8 Allergy status to other drugs, medicaments and biological substances; Z91.030 Bee allergy status
CPT/HCPCS: 70450; 70480; 72125; 99284

== ENCOUNTER → 2020-07-25 | Outpatient (CLI) | payer MEDICARE ==
[2020-07-25 15:17] LABS: Basophils % (A) 1 %; Eosinophils # (A) 0.3 k/uL (0-0.7); Eosinophils % (A) 4 %; HCT 47.7 % (39.0-53.0); HGB 15.8 gm/dL (13.0-17.5); Lymphocytes # (A) 2.5 k/uL (1.0-4.8); Lymphocytes % (A) 31 %; MCHC 33.1 g/dL (31.0-37.0); MCV 93.8 fL (80.0-100.0); Mean Platelet Volume 8.2; Monocytes # (A) 0.4 k/uL (0-1.0); Monocytes % (A) 5 %; Neutrophils # (A) 4.8 k/uL (1.3-7.7); Neutrophils % (A) 59 %; Platelet Count 237 k/uL (150-450); RBC 5.09 m/uL (4.30-5.90); RDW 13.7 % (11.5-15.5); WBC 8.1 k/uL (3.8-10.6)
[2020-07-25 22:41] LABS: Albumin 4.6 g/dL (3.80-4.90); BUN/Creat Ratio 7.86 Ratio (12.00-20.00); Calcium 9.7 mg/dL (8.7-10.3); Globulin 2.3 g/dL (1.6-3.3); Non-African American GFR(CKD) 65.5 (60.0-200.0); Total Bilirubin 0.2 mg/dL (0.2-1.2); Total Protein 6.9 g/dL (6.2-8.2)
== END | disposition home or self-care (01) ==
LOC: LABWHC1 14:43
DX: G40.219 Localization-related (focal) (partial) symptomatic epilepsy and epileptic syndromes with complex partial seizures, intractable, without status epilepticus (principal)
CPT/HCPCS: 36415; 80053; 80235; 85025

== ENCOUNTER 2021-10-03 18:46 | Emergency (ER) | payer MEDICARE ==
[2021-10-03 18:54] VITALS: RESP 18; TEMP 99.2
[2021-10-03] MEDS ORDERED: LORazepam 2 MG/ML INJ IV STA (18:58)
[2021-10-03] MEDS ORDERED: SODIUM CHLORIDE 0.9% 1,000 ML IV STA (18:58)
--- NOTE | 2021-10-03 19:20 | ED ---
Seizure HPI - General Chief Complaint: Seizure Stated Complaint: seizures Time Seen by Provider: 10/03/21 18:58 Source: patient, EMS, RN notes reviewed Mode of arrival: EMS Limitations: no limitations - History of Present Illness Initial Comments: This is a pleasant 35-year-old male who arrives via EMS after having a long seizure activity of 5-7 minutes. The family this is longer than the patient's usual seizure activity. Patient is on several antiepileptic medications as listed. Patient has had seizure disorder for several years. He has had multiple brain surgeries for implants to control the seizures. She's been taking his medications appropriately. Patient states he believes rasp was causing him to have more seizures than usual. Patient states that he has a history of having up to 100s of seizures per day. Patient states that his 8-year-old daughter was causing him more stress than usual due to other family issues. Patient states he had a prolonged seizure. Apparently he fell and struck his head on a carpeted floor. Patient has a primary care physician in this area, Dr. Jay. However, his neurosurgeon, Dr. Agustin, and his neurologist, Dr. Quinonez are in [facility]. Patient denies any recent illness Current mild headache, no fever or chills, no changes in vision or hearing, no sore throat or difficulty with speech, no neck pain, no chest pain or shortness of breath, no abdominal pain, no nausea or vomiting, no changes in urination or bowel movements, no numbness or tingling, no extremity pain, no skin rashes or lesions. - Related Data Home Medications Medication Instructions Recorded Confirmed Albuterol Sulfate [Ventolin HFA] 2 puff INHALATION RT-Q4H PRN 11/10/14 02/01/19 Lacosamide [Vimpat] 400 mg PO HS 01/19/18 02/01/19 Pregabalin [Lyrica] 300 mg PO TID 01/19/18 02/01/19 Onfi 20mg 20 mg PO BID 01/20/18 02/01/19 Beclomethasone Dipropionate [Qvar 40 mcg INHALATION RT-DAILY 02/01/19 02/01/19 40 mcg Redihaler] Lacosamide [Vimpat] 200 mg PO BID@0600,1200 02/01/19 02/01/19 Previous Rx's Medication Instructions Recorded Hydrocodone/Acetaminophen [[place] 1 tab PO Q8HR PRN 2 Days #6 tab 08/22/19 5-325] Allergies Allergy/AdvReac Type Severity Reaction Status Date / Time bee pollen Allergy Anaphylaxis Verified 10/03/21 18:55 brivaracetam [From Briviact] Allergy Unknown Verified 10/03/21 18:55 levetiracetam [From Keppra] AdvReac anger Verified 10/03/21 18:55 morphine AdvReac palpitation Verified 10/03/21 18:55 s Review of Systems ROS Statement: Those systems with pertinent positive or pertinent negative responses have been documented in the HPI. ROS Other: All systems not noted in ROS Statement are negative. Past Medical History Past Medical History: Asthma, GERD/Reflux, Renal Disease, Seizure Disorder Additional Past Medical History / Comment(s): Nephrolithiasis, seizures History of Any Multi-Drug Resistant Organisms: None Reported Past Surgical History: Ear Surgery Additional Past Surgical History / Comment(s): 10 BRAIN SURGERIES incuding implants and impulse procedures done at [facility], bilateral myringotomy/tubes. Past Anesthesia/Blood Transfusion Reactions: No Reported Reaction Past Psychological History: ADD/ADHD, Depression Smoking Status: Current every day smoker Past Alcohol Use History: Rare Past Drug Use History: Marijuana - Past Family History Father Family Medical History: Myocardial Infarction ([place]) Additional Family Medical History / Comment(s): Father of a [place] at the age of 53 yrs. Mother Family Medical History: No Reported History General Exam - General Exam Comments Initial Comments: This is a healthy-appearing 35-year-old male who does not appear to be in any significant distress. Cranial nerves II through XII are grossly intact. Does not appear to be ill or toxic. Limitations: no limitations General appearance: alert, in no apparent distress Head exam: Present: atraumatic, normocephalic, normal inspection, other (Tender across the frontal region. No crepitus. No step-off. Head is normocephalic atraumatic otherwise.) Eye exam: Present: normal appearance, PERRL, EOMI. Absent: scleral icterus, conjunctival injection, periorbital swelling ENT exam: Present: normal exam, normal oropharynx, mucous membranes dry, mucous membranes moist, TM's normal bilaterally, normal external ear exam Neck exam: Present: normal inspection, full ROM. Absent: tenderness, meningismus, lymphadenopathy Respiratory exam: Present: normal lung sounds bilaterally. Absent: respiratory distress, wheezes, rales, rhonchi, stridor Cardiovascular Exam: Present: regular rate, normal rhythm, normal heart sounds. Absent: systolic murmur, diastolic murmur, rubs, gallop, clicks GI/Abdominal exam: Present: soft, normal bowel sounds. Absent: distended, tenderness, guarding, rebound, rigid Extremities exam: Present: normal inspection, full ROM, normal capillary refill. Absent: tenderness, pedal edema, joint swelling, calf tenderness Back exam: Present: normal inspection Neurological exam: Present: alert, oriented X3, CN II-XII intact. Absent: alte red, motor sensory deficit, reflexes normal Expanded Patient oriented to: Present: person, place, time Speech: Present: fluid speech Cranial nerves: EOM's Intact: Normal, Gag Reflex: Normal, Tongue Deviation: Normal, Nystagmus: Normal, Facial Sensation: Normal, Facial Palsy with Forehead Movement: Normal, Facial Palsy without Forehead Movement: Normal Cerebellar function: Finger to Nose: Normal, Heel to [place]: Normal Upper motor neuron: Jose Neglect: Normal, Pronator Drift: Normal, Sensory Extinction: Normal Eye Response: (4) open spontaneously Motor Response: (6) obeys commands Verbal Response: (5) oriented Otilio Total: 15 Psychiatric exam: Present: normal affect, normal mood. Absent: anxious, flat affect Skin exam: Present: warm, dry, intact, normal color. Absent: rash Course Vital Signs 10/03/21 18:48 Temperature 99.2 F Pulse Rate 85 Respiratory 18 Rate Blood Pressure 122/72 O2 Sat by Pulse 97 Oximetry - Reevaluation(s) Reevaluation #1: 10/03/21 19:45 Case was discussed with the on-call neurologist for Dr. Quinonez [facility] in [place]. He is okay with the patient getting a computed tomography scan of the brain. He also states that if everything turns out okay the patient can be discharged with follow-up with Dr. Quinonez. Reevaluation #2: 10/03/21 21:10 Medical record is reviewed Patient asymptomatic here in the ER. No seizure activity. Workup is essentially negative. Case was discussed with the on-call neurologist in [place]. The case was discussed in detail with ED attending physician. Presentation, findings, treatment plan discussed in detail. Patient is informed of results and questions answered Patient in no distress Medical Decision Making - Medical Decision Making Patient presents after having prolonged seizure activity which was longer than his normal daily seizure activity. Patient fell and struck his head on the floor. Relating this to current distress. Currently alert and oriented 4, neurologically intact. Call placed for the patient's neurologist in [facility], Dr. Quinonez. Call was placed at [phone]. Computed tomography scan was ordered after discussion with the patient's neurologist. Patient had a seizure episode which was longer than usual as well as sustaining a head injury during the seizure. We'll have the patient follow up with his neurologist in [place]. Of course he is to return here to the ER at anytime if any symptoms worsen, seizure activity recurs. Continue current seizure medication regimen. Contact the neurologist first thing in the morning without fail. Computed tomography scan showed no evidence of acute pathology. - Lab Data Result diagrams: 10/03/21 19:09 10/03/21 19:09 Lab Results 10/03/21 10/03/21 10/03/21 Range/Units 19:09 19:09 19:09 WBC 7.8 (3.8-10.6) k/uL RBC 4.82 (4.30-5.90) m/uL Hgb 15.9 (13.0-17.5) gm/dL Hct 46.0 (39.0-53.0) % MCV 95.4 (80.0-100.0) fL MCH 33.0 (25.0-35.0) pg MCHC 34.6 (31.0-37.0) g/dL RDW 14.4 (11.5-15.5) % Plt Count 223 (150-450) k/uL MPV 9.0 Neutrophils % 56 % Lymphocytes % 34 % Monocytes % 4 % Eosinophils % 3 % Basophils % 1 % Neutrophils # 4.4 (1.3-7.7) k/uL Lymphocytes # 2.7 (1.0-4.8) k/uL Monocytes # 0.3 (0-1.0) k/uL Eosinophils # 0.3 (0-0.7) k/uL Basophils # 0.0 (0-0.2) k/uL Sodium 139 (137-145) mmol/L Potassium 3.5 (3.5-5.1) mmol/L Chloride 104 (98-107) mmol/L Carbon Dioxide 26 (22-30) mmol/L Anion Gap 9 mmol/L BUN 12 (9-20) mg/dL Creatinine 1.06 (0.66-1.25) mg/dL Est GFR (CKD-EPI)AfAm >90 (>60 ml/min/1.73 sqM) Est GFR (CKD-EPI)NonAf >90 (>60 ml/min/1.73 sqM) Glucose 125 H (74-99) mg/dL Calcium 8.9 (8.4-10.2) mg/dL Magnesium 2.3 (1.6-2.3) mg/dL Total Bilirubin 0.4 (0.2-1.3) mg/dL AST 28 (17-59) U/L ALT 24 (4-49) U/L Alkaline Phosphatase 77 (38-126) U/L Total Protein 7.3 (6.3-8.2) g/dL Albumin 4.3 (3.5-5.0) g/dL Urine Color Urine Appearance (Clear) Urine pH (5.0-8.0) Ur Specific [place] (1.001-1.035) Urine Protein (Negative) Urine Glucose (UA) (Negative) Urine Ketones (Negative) Urine Blood (Negative) Urine Nitrite (Negative) Urine Bilirubin (Negative) Urine Urobilinogen (<2.0) mg/dL Ur Leukocyte Esterase (Negative) Urine RBC (0-5) /hpf Amorphous Sediment (None) /hpf Urine Mucus (None) /hpf Urine Opiates Screen (NotDetected) Ur Oxycodone Screen (NotDetected) Urine Methadone Screen (NotDetected) Ur Propoxyphene Screen (NotDetected) Ur Barbiturates Screen (NotDetected) U Tricyclic Antidepress (NotDetected) Ur Phencyclidine Scrn (NotDetected) Ur Amphetamines Screen (NotDetected) U Methamphetamines Scrn (NotDetected) U Benzodiazepines Scrn (NotDetected) Urine Cocaine Screen (NotDetected) U Marijuana (THC) Screen (NotDetected) Serum Alcohol <10 mg/dL Coronavirus (PCR) (Not Detectd) 10/03/21 10/03/21 10/03/21 Range/Units 19:13 20:29 20:29 WBC (3.8-10.6) k/uL RBC (4.30-5.90) m/uL Hgb (13.0-17.5) gm/dL Hct (39.0-53.0) % MCV (80.0-100.0) fL MCH (25.0-35.0) pg MCHC (31.0-37.0) g/dL RDW (11.5-15.5) % Plt Count (150-450) k/uL MPV Neutrophils % % Lymphocytes % % Monocytes % % Eosinophils % % Basophils % % Neutrophils # (1.3-7.7) k/uL Lymphocytes # (1.0-4.8) k/uL Monocytes # (0-1.0) k/uL Eosinophils # (0-0.7) k/uL Basophils # (0-0.2) k/uL Sodium (137-145) mmol/L Potassium (3.5-5.1) mmol/L Chloride (98-107) mmol/L Carbon Dioxide (22-30) mmol/L Anion Gap mmol/L BUN (9-20) mg/dL Creatinine (0.66-1.25) mg/dL Est GFR (CKD-EPI)AfAm (>60 ml/min/1.73 sqM) Est GFR (CKD-EPI)NonAf (>60 ml/min/1.73 sqM) Glucose (74-99) mg/dL Calcium (8.4-10.2) mg/dL Magnesium (1.6-2.3) mg/dL Total Bilirubin (0.2-1.3) mg/dL AST (17-59) U/L ALT (4-49) U/L Alkaline Phosphatase (38-126) U/L Total Protein (6.3-8.2) g/dL Albumin (3.5-5.0) g/dL Urine Color Yellow Urine Appearance Turbid (Clear) Urine pH 7.0 (5.0-8.0) Ur Specific [place] 1.027 (1.001-1.035) Urine Protein 1+ H (Negative) Urine Glucose (UA) Negative (Negative) Urine Ketones Negative (Negative) Urine Blood Negative (Negative) Urine Nitrite Negative (Negative) Urine Bilirubin Negative (Negative) Urine Urobilinogen 2.0 (<2.0) mg/dL Ur Leukocyte Esterase Trace H (Negative) Urine RBC 2 (0-5) /hpf Amorphous Sediment Rare H (None) /hpf Urine Mucus Occasional H (None) /hpf Urine Opiates Screen Detected H (NotDetected) Ur Oxycodone Screen Not Detected (NotDetected) Urine Methadone Screen Not Detected (NotDetected) Ur Propoxyphene Screen Not Detected (NotDetected) Ur Barbiturates Screen Detected H (NotDetected) U Tricyclic Antidepress Not Detected (NotDetected) Ur Phencyclidine Scrn Not Detected (NotDetected) Ur Amphetamines Screen Not Detected (NotDetected) U Methamphetamines Scrn Not Detected (NotDetected) U Benzodiazepines Scrn Detected H (NotDetected) Urine Cocaine Screen Not Detected (NotDetected) U Marijuana (THC) Screen Detected H (NotDetected) Serum Alcohol mg/dL Coronavirus (PCR) Not Detected (Not Detectd) - EKG Data EKG Comments: EKG done at 1926 and read by the ED attending physician reveals sinus rhythm with a rate of 64, sinus arrhythmia. Normal axis, no acute ST or T-wave changes, normal intervals. Normal QRS morphology. Disposition Clinical Impression: Recurrent seizures, Closed head injury Disposition: HOME SELF-CARE Condition: Good Instructions (If sedation given, give patient instructions): Recurrent Seizures in Adults (ED), Head Injury (ED) Additional Instructions: Call tomorrow morning to make a follow-up appointment with Dr. Quinonez without fail. Follow-up with your regular physician as directed. Return to the ER immediately if any symptoms worsen, new symptoms arise, or any other problems develop. Continue your current seizure regimen. Additionally, touch base with your primary care physician tomorrow as well. Is patient prescribed a controlled substance at d/c from ED?: No Referrals: Mazin Jay MD [Primary Care Provider] - 1-2 days Time of Disposition: 21:12
[2021-10-03 19:24] LABS: Basophils % (A) 1 %; Eosinophils # (A) 0.3 k/uL (0-0.7); Eosinophils % (A) 3 %; HGB 15.9 gm/dL (13.0-17.5); Lymphocytes # (A) 2.7 k/uL (1.0-4.8); Lymphocytes % (A) 34 %; MCHC 34.6 g/dL (31.0-37.0); MCV 95.4 fL (80.0-100.0); Monocytes # (A) 0.3 k/uL (0-1.0); Monocytes % (A) 4 %; Neutrophils # (A) 4.4 k/uL (1.3-7.7); Neutrophils % (A) 56 %; Platelet Count 223 k/uL (150-450); RBC 4.82 m/uL (4.30-5.90); RDW 14.4 % (11.5-15.5); WBC 7.8 k/uL (3.8-10.6)
--- NOTE | 2021-10-03 19:31 | XR ---
EXAMINATION TYPE: XR chest 1V portable DATE OF EXAM: 10/03/2021 COMPARISON: 08/02/2017 HISTORY: Seizure. Pain. TECHNIQUE: Single view FINDINGS: Heart and mediastinum are normal. Lungs are clear. Diaphragm is normal. Bony thorax appears normal. IMPRESSION: Normal chest. No change.
[2021-10-03 19:33] LABS: ALT 24 U/L (4-49); AST 28 U/L (17-59); African American GFR (CKD) >90 (>60 ml/min/1.73 sqM); Albumin 4.3 g/dL (3.5-5.0); Alcohol <10 mg/dL; Alkaline Phosphatase 77 U/L (38-126); Anion Gap 9 mmol/L; Blood Urea Nitrogen 12 mg/dL (9-20); Calcium 8.9 mg/dL (8.4-10.2); Carbon Dioxide 26 mmol/L (22-30); Chloride 104 mmol/L (98-107); Glucose 125 mg/dL (74-99); Non-African American GFR(CKD) >90 (>60 ml/min/1.73 sqM); Potassium 3.5 mmol/L (3.5-5.1); Sodium 139 mmol/L (137-145); Total Bilirubin 0.4 mg/dL (0.2-1.3); Total Protein 7.3 g/dL (6.3-8.2)
--- NOTE | 2021-10-03 20:04 | CT ---
EXAMINATION TYPE: CT brain wo con DATE OF EXAM: 10/03/2021 COMPARISON: 04/12/2020 HISTORY: Seizure CT DLP: 1178.4 mGycm Automated exposure control for dose reduction was used. There is metallic implants in the left temporal and parietal lobe. There is multiple areas of craniot ananya. There is no mass effect or midline shift. There is no sign of intracranial hemorrhage. Exam limi devin by metal artifact. Ventricles have normal size. The skull base is intact. There is normal aeratio n of the mastoid sinuses. IMPRESSION: Previous surgery. No acute intracranial abnormality. No change.
[2021-10-03 20:46] LABS: Amorphous Sediment,Urine Rare /hpf; Appearance,Urine Turbid (Clear); Bilirubin,Urine Negative (Negative); Blood,Urine Negative (Negative); Color,Urine Yellow; Glucose,Urine (UA) Negative (Negative); Ketones,Urine Negative (Negative); Leukocyte Esterase,Urine Trace (Negative); Mucus,Urine Occasional /hpf; Nitrite,Urine Negative (Negative); Protein,Urine 1+ (Negative); RBC,Urine 2 /hpf (0-5); Specific Gravity,Urine 1.027 (1.001-1.035)
[2021-10-03 20:53] LABS: Amphetamine Screen,Urine Not Detected (NotDetected); Barbiturate Screen,Urine Detected (NotDetected); Benzodiazepines Screen,Urine Detected (NotDetected); Cocaine Screen,Urine Not Detected (NotDetected); Methadone Screen, Urine Not Detected (NotDetected); Opiate Screen,Urine Detected (NotDetected); Oxycodone Screen, Urine Not Detected (NotDetected); Phencyclidine Screen,Urine Not Detected (NotDetected); Tricyclic Antidepressant,Urine Not Detected (NotDetected); Urn Cannabinoid Scrn Detected (NotDetected)
[2021-10-03] MEDS ORDERED: HYDROcodone/APAP 5-325MG 1 EACH TAB PO STA (21:15)
[2021-10-03 21:17] VITALS: BP 106/69; PULSE 62
== END 2021-10-03 21:28 | disposition home or self-care (01) ==
LOC: EC 18:46
DX: G40.909 Epilepsy, unspecified, not intractable, without status epilepticus (principal); S09.90XA Unspecified injury of head, initial encounter; J45.909 Unspecified asthma, uncomplicated; K21.9 Gastro-esophageal reflux disease without esophagitis; F32.A Depression, unspecified; F90.9 Attention-deficit hyperactivity disorder, unspecified type; F17.200 Nicotine dependence, unspecified, uncomplicated; F12.90 Cannabis use, unspecified, uncomplicated; Z79.51 Long term (current) use of inhaled steroids; Z79.899 Other long term (current) drug therapy; W18.39XA Other fall on same level, initial encounter
CPT/HCPCS: 36415; 93005; 80053; 83735; 85025; 81001; 80306; 87635; 80235; 71045; 70450; 99285; 96374; 96361; G0480; J2060; 80320

== ENCOUNTER 2022-01-16 08:24 | Emergency (ER) | payer MEDICARE ==
[2022-01-16 08:30] VITALS: RESP 18; TEMP 97.7
[2022-01-16 08:48] LABS: Basophils % (A) 1 %; Eosinophils # (A) 0.2 k/uL (0-0.7); Eosinophils % (A) 4 %; HCT 38.7 % (39.0-53.0); HGB 13.2 gm/dL (13.0-17.5); Lymphocytes # (A) 1.2 k/uL (1.0-4.8); Lymphocytes % (A) 24 %; MCH 32.8 pg (25.0-35.0); MCV 96.6 fL (80.0-100.0); Mean Platelet Volume 8.1; Monocytes # (A) 0.3 k/uL (0-1.0); Monocytes % (A) 6 %; Neutrophils # (A) 3.2 k/uL (1.3-7.7); Neutrophils % (A) 64 %; Platelet Count 187 k/uL (150-450); RBC 4.01 m/uL (4.30-5.90); RDW 14.4 % (11.5-15.5); WBC 4.9 k/uL (3.8-10.6)
[2022-01-16] MEDS ORDERED: DIAZEPAM 5 MG/ML 2 ML INJ IVP STA (08:51)
--- NOTE | 2022-01-16 08:53 | ED ---
General Adult HPI - General Chief complaint: Seizure Stated complaint: seizure Time Seen by Provider: 01/16/22 08:25 Source: patient, EMS, RN notes reviewed, old records reviewed Mode of arrival: EMS Limitations: no limitations - History of Present Illness Initial comments: 36yo female presented for evaluation of seizure or patient has frequent seizures up to 10 a day normally. He is on multiple antiepileptic medications. He states he has been compliant. The patient hadn't [id number] seizures this morning at a rate that was increased from baseline. He has no headache. No focal numbness or weakness. No fever. No pain complaints. - Related Data Home Medications Medication Instructions Recorded Confirmed Albuterol Sulfate [Ventolin HFA] 2 puff INHALATION RT-Q4H PRN 11/10/14 02/01/19 Lacosamide [Vimpat] 400 mg PO HS 01/19/18 02/01/19 Pregabalin [Lyrica] 300 mg PO TID 01/19/18 02/01/19 Onfi 20mg 20 mg PO BID 01/20/18 02/01/19 Beclomethasone Dipropionate [Qvar 40 mcg INHALATION RT-DAILY 02/01/19 02/01/19 40 mcg Redihaler] Lacosamide [Vimpat] 200 mg PO BID@0600,1200 02/01/19 02/01/19 Previous Rx's Medication Instructions Recorded Hydrocodone/Acetaminophen [[place] 1 tab PO Q8HR PRN 2 Days #6 tab 08/22/19 5-325] Allergies Allergy/AdvReac Type Severity Reaction Status Date / Time bee pollen Allergy Anaphylaxis Verified 10/03/21 18:55 brivaracetam [From Briviact] Allergy Unknown Verified 10/03/21 18:55 levetiracetam [From Keppra] AdvReac anger Verified 10/03/21 18:55 morphine AdvReac palpitation Verified 10/03/21 18:55 s Review of Systems ROS Statement: Those systems with pertinent positive or pertinent negative responses have been documented in the HPI. ROS Other: All systems not noted in ROS Statement are negative. Past Medical History Past Medical History: Asthma, GERD/Reflux, Renal Disease, Seizure Disorder Additional Past Medical History / Comment(s): Nephrolithiasis, seizures History of Any Multi-Drug Resistant Organisms: None Reported Past Surgical History: Ear Surgery Additional Past Surgical History / Comment(s): 10 BRAIN SURGERIES incuding implants and impulse procedures done at [facility], bilateral myringotomy/tubes. Past Anesthesia/Blood Transfusion Reactions: No Reported Reaction Past Psychological History: ADD/ADHD, Depression Smoking Status: Current every day smoker Past Alcohol Use History: Rare Past Drug Use History: Marijuana - Past Family History Father Family Medical History: Myocardial Infarction ([place]) Additional Family Medical History / Comment(s): Father of a [place] at the age of 53 yrs. Mother Family Medical History: No Reported History General Exam Limitations: no limitations General appearance: alert, in no apparent distress Head exam: Present: atraumatic, normocephalic Eye exam: Present: normal appearance, PERRL ENT exam: Present: mucous membranes dry Neck exam: Present: normal inspection. Absent: tenderness, meningismus Respiratory exam: Present: normal lung sounds bilaterally. Absent: respiratory distress, wheezes Cardiovascular Exam: Present: regular rate, normal rhythm GI/Abdominal exam: Present: soft. Absent: distended, tenderness, guarding Extremities exam: Present: normal inspection, normal capillary refill. Absent: pedal edema, calf tenderness Neurological exam: Present: alert, oriented X3, CN II-XII intact. Absent: motor sensory deficit Psychiatric exam: Present: flat affect Skin exam: Present: warm, dry, intact. Absent: cyanosis, diaphoretic Course Vital Signs 01/16/22 08:27 Temperature 97.7 F Pulse Rate 56 L Respiratory 18 Rate Blood Pressure 112/71 O2 Sat by Pulse 99 Oximetry EKG Findings - EKG Comments: EKG Findings:: EKG: Sinus bradycardia rate of 54, SC intervals 174, QRS duration 94, QTC 45, no ST segment elevation. Medical Decision Making - Medical Decision Making 36-year-old male with seizure disorder presenting with multiple seizures this morning. Patient does have a very high seizure frequency at baseline. He has been compliant with his medications. He states that oftentimes Valium does improve his symptoms in the short-term. Laboratory studies are obtained including CBC and CMP he has no acidosis, normal electrolytes abnormalities. He is in sinus rhythm. His vital signs are stable. He is observed in the emergency department without further seizure activity. He is stable for discharge at this time. - Lab Data Result diagrams: 01/16/22 08:34 01/16/22 08:34 Lab Results 01/16/22 01/16/22 Range/Units 08:34 08:34 WBC 4.9 (3.8-10.6) k/uL RBC 4.01 L (4.30-5.90) m/uL Hgb 13.2 (13.0-17.5) gm/dL Hct 38.7 L (39.0-53.0) % MCV 96.6 (80.0-100.0) fL MCH 32.8 (25.0-35.0) pg MCHC 34.0 (31.0-37.0) g/dL RDW 14.4 (11.5-15.5) % Plt Count 187 (150-450) k/uL MPV 8.1 Neutrophils % 64 % Lymphocytes % 24 % Monocytes % 6 % Eosinophils % 4 % Basophils % 1 % Neutrophils # 3.2 (1.3-7.7) k/uL Lymphocytes # 1.2 (1.0-4.8) k/uL Monocytes # 0.3 (0-1.0) k/uL Eosinophils # 0.2 (0-0.7) k/uL Basophils # 0.0 (0-0.2) k/uL Sodium 140 (137-145) mmol/L Potassium 3.9 (3.5-5.1) mmol/L Chloride 106 (98-107) mmol/L Carbon Dioxide 29 (22-30) mmol/L Anion Gap 5 mmol/L BUN 10 (9-20) mg/dL Creatinine 1.13 (0.66-1.25) mg/dL Est GFR (CKD-EPI)AfAm >90 (>60 ml/min/1.73 sqM) Est GFR (CKD-EPI)NonAf 84 (>60 ml/min/1.73 sqM) Glucose 97 (74-99) mg/dL Calcium 8.5 (8.4-10.2) mg/dL Magnesium 2.2 (1.6-2.3) mg/dL Total Bilirubin 0.2 (0.2-1.3) mg/dL AST 28 (17-59) U/L ALT 27 (4-49) U/L Alkaline Phosphatase 61 (38-126) U/L Total Protein 6.5 (6.3-8.2) g/dL Albumin 3.9 (3.5-5.0) g/dL Serum Alcohol <10 mg/dL Disposition Clinical Impression: Seizure disorder Disposition: HOME SELF-CARE Condition: Fair Instructions (If sedation given, give patient instructions): Recurrent Seizures in Adults (ED) Is patient prescribed a controlled substance at d/c from ED?: No Referrals: Mazin Jay MD [Primary Care Provider] - 1-2 days Time of Disposition: 09:30
[2022-01-16 09:03] LABS: ALT 27 U/L (4-49); AST 28 U/L (17-59); African American GFR (CKD) >90 (>60 ml/min/1.73 sqM); Albumin 3.9 g/dL (3.5-5.0); Alcohol <10 mg/dL; Alkaline Phosphatase 61 U/L (38-126); Anion Gap 5 mmol/L; Blood Urea Nitrogen 10 mg/dL (9-20); Calcium 8.5 mg/dL (8.4-10.2); Carbon Dioxide 29 mmol/L (22-30); Chloride 106 mmol/L (98-107); Glucose 97 mg/dL (74-99); Magnesium 2.2 mg/dL (1.6-2.3); Non-African American GFR(CKD) 84 (>60 ml/min/1.73 sqM); Potassium 3.9 mmol/L (3.5-5.1); Sodium 140 mmol/L (137-145); Total Bilirubin 0.2 mg/dL (0.2-1.3); Total Protein 6.5 g/dL (6.3-8.2)
[2022-01-16 09:40] VITALS: BP 112/64; PULSE 49
== END 2022-01-16 09:40 | disposition home or self-care (01) ==
LOC: EC 08:24
DX: G40.909 Epilepsy, unspecified, not intractable, without status epilepticus (principal); J45.909 Unspecified asthma, uncomplicated; F32.A Depression, unspecified; F90.9 Attention-deficit hyperactivity disorder, unspecified type; Z72.89 Other problems related to lifestyle; F12.90 Cannabis use, unspecified, uncomplicated; Z79.51 Long term (current) use of inhaled steroids; Z88.5 Allergy status to narcotic agent; Z88.2 Allergy status to sulfonamides; Z88.8 Allergy status to other drugs, medicaments and biological substances; Z91.09 Other allergy status, other than to drugs and biological substances; F17.200 Nicotine dependence, unspecified, uncomplicated
CPT/HCPCS: 36415; 93005; 80053; 83735; 85025; 99284; 96374; G0480; J3360; 80320

== ENCOUNTER 2022-06-11 05:18 | Emergency (ER) | payer MEDICARE ==
[2022-06-11] MEDS ORDERED: HYDROmorphone 0.5 MG/0.5 ML SYRINGE IVP STA (05:22)
[2022-06-11] MEDS ORDERED: SODIUM CHLORIDE 0.9% 1,000 ML IV STA (05:22)
[2022-06-11 05:26] VITALS: TEMP 98.1
[2022-06-11] MEDS ORDERED: LIDOCAINE 1%-EPI 1:100,000 20 ML VIAL SQ STA (05:39)
--- NOTE | 2022-06-11 05:41 | ED ---
Seizure HPI - General Chief Complaint: Seizure Stated Complaint: Seizure, Fall Time Seen by Provider: 06/11/22 05:22 Source: EMS, RN notes reviewed, old records reviewed Mode of arrival: EMS - History of Present Illness Initial Comments: This is a 36-year-old male DF for evaluation today. Patient presents today for evaluation regarding seizure seizure regarding a fall. Seizure while sleeping. Patient fell down 3 steps separate head injury back injury but no other significant complaints. Patient did take seizure medications tonight. Has been compliant no other complaints MD Complaint: seizure -: minutes(s) Description of Episode: loss of consciousness, tonic-clonic movement, post-event confusion -: second(s) Trauma: Yes Seizure History: known seizure disorder Place: home Possible Precipitating Event: none Associated Symptoms: denies other symptoms Treatments Prior to Arrival: none - Related Data Home Medications Medication Instructions Recorded Confirmed Albuterol Sulfate [Ventolin HFA] 2 puff INHALATION RT-Q4H PRN 11/10/14 02/01/19 Lacosamide [Vimpat] 400 mg PO HS 01/19/18 02/01/19 Pregabalin [Lyrica] 300 mg PO TID 01/19/18 02/01/19 Onfi 20mg 20 mg PO BID 01/20/18 02/01/19 Beclomethasone Dipropionate [Qvar 40 mcg INHALATION RT-DAILY 02/01/19 02/01/19 40 mcg Redihaler] Lacosamide [Vimpat] 200 mg PO BID@0600,1200 02/01/19 02/01/19 Previous Rx's Medication Instructions Recorded Hydrocodone/Acetaminophen [[place] 1 tab PO Q8HR PRN 2 Days #6 tab 08/22/19 5-325] Allergies Allergy/AdvReac Type Severity Reaction Status Date / Time bee pollen Allergy Anaphylaxis Verified 10/03/21 18:55 brivaracetam [From Briviact] Allergy Unknown Verified 10/03/21 18:55 levetiracetam [From Keppra] AdvReac anger Verified 10/03/21 18:55 morphine AdvReac palpitation Verified 10/03/21 18:55 s Review of Systems ROS Statement: Those systems with pertinent positive or pertinent negative responses have been documented in the HPI. ROS Other: All systems not noted in ROS Statement are negative. Past Medical History Past Medical History: Asthma, GERD/Reflux, Renal Disease, Seizure Disorder Additional Past Medical History / Comment(s): Nephrolithiasis, seizures History of Any Multi-Drug Resistant Organisms: None Reported Past Surgical History: Ear Surgery Additional Past Surgical History / Comment(s): 10 BRAIN SURGERIES incuding implants and impulse procedures done at [facility], bilateral myringotomy/tubes. Past Anesthesia/Blood Transfusion Reactions: No Reported Reaction Past Psychological History: ADD/ADHD, Depression Smoking Status: Current every day smoker Past Alcohol Use History: Rare Past Drug Use History: Marijuana - Past Family History Father Family Medical History: Myocardial Infarction ([place]) Additional Family Medical History / Comment(s): Father of a [place] at the age of 53 yrs. Mother Family Medical History: No Reported History General Exam General appearance: alert, in no apparent distress Head exam: Present: atraumatic, normocephalic, normal inspection Eye exam: Present: normal appearance, PERRL, EOMI. Absent: scleral icterus, conjunctival injection, periorbital swelling ENT exam: Present: normal exam, mucous membranes moist Neck exam: Present: normal inspection. Absent: tenderness, meningismus, lymphadenopathy Respiratory exam: Present: normal lung sounds bilaterally. Absent: respiratory distress, wheezes, rales, rhonchi, stridor Cardiovascular Exam: Present: regular rate, normal rhythm, normal heart sounds. Absent: systolic murmur, diastolic murmur, rubs, gallop, clicks GI/Abdominal exam: Present: soft, normal bowel sounds. Absent: distended, tenderness, guarding, rebound, rigid Extremities exam: Present: normal inspection, full ROM, normal capillary refill. Absent: tenderness, pedal edema, joint swelling, calf tenderness Back exam: Present: normal inspection Neurological exam: Present: alert, oriented X3, CN II-XII intact Psychiatric exam: Present: normal affect, normal mood Skin exam: Present: warm, dry, intact, normal color. Absent: rash Course Vital Signs 06/11/22 06/11/22 05:21 06:35 Temperature 98.1 F Pulse Rate 89 71 Respiratory 17 16 Rate Blood Pressure 116/67 123/71 O2 Sat by Pulse 100 97 Oximetry - Reevaluation(s) Reevaluation #1: 06/11/22 Medical record is reviewed Reevaluation #2: 06/11/22 Patient informed results questions answered Reevaluation #3: 06/11/22 No recurrent seizures here in the ER Medical Decision Making - Medical Decision Making 36 male to the emergency department for evaluation regarding recurrent seizures. Patient does have laceration repaired both occipital and above left eye. Imaging is negative patient can be discharged home - Lab Data Result diagrams: 06/11/22 05:30 06/11/22 05:30 Lab Results 06/11/22 06/11/22 Range/Units 05:30 05:30 WBC 7.6 (3.8-10.6) k/uL RBC 3.38 L (4.30-5.90) m/uL Hgb 11.3 L (13.0-17.5) gm/dL Hct 31.9 L (39.0-53.0) % MCV 94.3 (80.0-100.0) fL MCH 33.5 (25.0-35.0) pg MCHC 35.5 (31.0-37.0) g/dL RDW 14.0 (11.5-15.5) % Plt Count 165 (150-450) k/uL MPV 9.1 Neutrophils % 69 % Lymphocytes % 21 % Monocytes % 5 % Eosinophils % 3 % Basophils % 0 % Neutrophils # 5.3 (1.3-7.7) k/uL Lymphocytes # 1.6 (1.0-4.8) k/uL Monocytes # 0.4 (0-1.0) k/uL Eosinophils # 0.2 (0-0.7) k/uL Basophils # 0.0 (0-0.2) k/uL Sodium 142 (137-145) mmol/L Potassium 3.7 (3.5-5.1) mmol/L Chloride 105 (98-107) mmol/L Carbon Dioxide 32 H (22-30) mmol/L Anion Gap 5 mmol/L BUN 12 (9-20) mg/dL Creatinine 1.19 (0.66-1.25) mg/dL Est GFR (CKD-EPI)AfAm >90 (>60 ml/min/1.73 sqM) Est GFR (CKD-EPI)NonAf 79 (>60 ml/min/1.73 sqM) Glucose 105 H (74-99) mg/dL Calcium 8.7 (8.4-10.2) mg/dL Magnesium 2.1 (1.6-2.3) mg/dL Total Bilirubin 0.4 (0.2-1.3) mg/dL AST 30 (17-59) U/L ALT 24 (4-49) U/L Alkaline Phosphatase 71 (38-126) U/L Total Protein 6.3 (6.3-8.2) g/dL Albumin 4.0 (3.5-5.0) g/dL Salicylates <1.0 mg/dL Acetaminophen <10.0 ug/mL Phenytoin <3.0 ug/mL Valproic Acid <10.0 ug/mL Carbamazepine <3.0 ug/mL Serum Alcohol <10 mg/dL - Radiology Data Radiology results: report reviewed (CT brain C-spine chest and pelvis x-ray negative for acute disease), image reviewed Disposition Clinical Impression: Intractable seizure disorder, Seizure disorder, Epileptic seizure, generalized, Facial laceration Disposition: HOME SELF-CARE Condition: Good Instructions (If sedation given, give patient instructions): Seizure/Epilepsy Discharge Instructions & Follow-Up, Recurrent Seizures in Adults (ED), Facial Laceration (ED) Is patient prescribed a controlled substance at d/c from ED?: No Referrals: Mazin Jay MD [Primary Care Provider] - 1-2 days Time of Disposition: 07:00
[2022-06-11 05:51] LABS: Basophils % (A) 0 %; Eosinophils # (A) 0.2 k/uL (0-0.7); Eosinophils % (A) 3 %; HCT 31.9 % (39.0-53.0); HGB 11.3 gm/dL (13.0-17.5); Lymphocytes # (A) 1.6 k/uL (1.0-4.8); Lymphocytes % (A) 21 %; MCH 33.5 pg (25.0-35.0); MCHC 35.5 g/dL (31.0-37.0); MCV 94.3 fL (80.0-100.0); Mean Platelet Volume 9.1; Monocytes # (A) 0.4 k/uL (0-1.0); Monocytes % (A) 5 %; Neutrophils # (A) 5.3 k/uL (1.3-7.7); Neutrophils % (A) 69 %; Platelet Count 165 k/uL (150-450); RBC 3.38 m/uL (4.30-5.90); WBC 7.6 k/uL (3.8-10.6)
[2022-06-11 06:03] LABS: ALT 24 U/L (4-49); AST 30 U/L (17-59); Acetaminophen <10.0 ug/mL; African American GFR (CKD) >90 (>60 ml/min/1.73 sqM); Alcohol <10 mg/dL; Alkaline Phosphatase 71 U/L (38-126); Anion Gap 5 mmol/L; Blood Urea Nitrogen 12 mg/dL (9-20); Calcium 8.7 mg/dL (8.4-10.2); Carbon Dioxide 32 mmol/L (22-30); Chloride 105 mmol/L (98-107); Glucose 105 mg/dL (74-99); Magnesium 2.1 mg/dL (1.6-2.3); Non-African American GFR(CKD) 79 (>60 ml/min/1.73 sqM); Potassium 3.7 mmol/L (3.5-5.1); Salicylate <1.0 mg/dL; Sodium 142 mmol/L (137-145); Total Bilirubin 0.4 mg/dL (0.2-1.3); Total Protein 6.3 g/dL (6.3-8.2)
[2022-06-11 06:08] LABS: Valproic Acid (Depakene) <10.0 ug/mL
[2022-06-11 06:24] LABS: Carbamazepine (Tegretol) <3.0 ug/mL; Phenytoin (Dilantin) <3.0 ug/mL
--- NOTE | 2022-06-11 06:40 | CT ---
EXAMINATION TYPE: CT brain cspine wo con DATE OF EXAM: 06/11/2022 COMPARISON: CT brain October 03, 2021. CT cervical spine April 12, 2020 HISTORY: Fall injury with seizure, headache, and neck pain CT DLP: 1436.5 mGycm. Automated Exposure Control for Dose Reduction was Utilized. TECHNIQUE: CT scan of the head and cervical spine are performed without contrast. FINDINGS: Left frontal parietal craniotomy and craniectomy defects along with right frontal ethel hole s are all redemonstrated. Persistent left-sided stimulator leads terminate in left brain parenchyma w ith streak artifact somewhat limiting evaluation at these levels. No acute intracranial hemorrhage or midline shift. Ventricles and sulci stable and within normal limits in size over last several CTs. C ompletely opacified small right maxillary sinus redemonstrated. New opacification left maxillary sinu s with air-fluid level. New displaced comminuted fracture acute fractures involving the anterior left maxillary sinus wall and posterolateral left maxillary sinus wall. Focal moderate soft tissue swelli ng over the left globe. Intraconal fat is preserved. Orbital floors and claros grossly intact. Cervical spine is visualized in its entirety from C1 through upper thoracic levels and redemonstrates dextroconvex scoliosis centered in the upper thoracic spine without acute displaced fracture. Verteb ral body heights and disc space heights fairly well maintained. Prevertebral soft tissue appears wit hin normal limits. The C1-C2 articulation is within normal limits on the coronal images. Spinal can al is grossly preserved. Axial images show thyroid gland to appear within normal limits. Lung apices show no pneumothorax. Koyf-[id number] diffuse subcutaneous edema remains present. IMPRESSION: 1. There is no acute fracture or dislocation evident in the cervical spine. 2. No acute intracranial hemorrhage or midline shift is seen. 3. Focal moderate size left preorbital soft tissue swelling and acute hematoma with acute comminuted displaced fracture through the left maxillary sinus claros and associated hemorrhage into the left max illary sinus noted.
--- NOTE | 2022-06-11 06:41 | XR ---
EXAMINATION TYPE: XR pelvis AP view DATE OF EXAM: 06/11/2022 CLINICAL HISTORY: Fall injury with pain TECHNIQUE: A single AP view of the pelvis is obtained. COMPARISON: None. FINDINGS: There is no acute fracture/dislocation evident in the pelvis. The hip and sacroiliac join ts appear symmetric and within normal limits. Pubic symphysis is intact. Left-sided pelvic phlebolit hs noted. IMPRESSION: There is no acute fracture or dislocation in the pelvis.
--- NOTE | 2022-06-11 06:42 | XR ---
EXAMINATION TYPE: XR chest 1V DATE OF EXAM: 06/11/2022 COMPARISON: Chest x-ray October 03, 2021 HISTORY: Fall injury with pain TECHNIQUE: 2 frontal supine views of the chest are obtained. FINDINGS: There is no suspicious new focal air space opacity, pleural effusion, or pneumothorax seen . The cardiac silhouette size remains within normal limits. Overlying EKG leads are in current study . The osseous structures are intact. IMPRESSION: No acute process. No significant change from prior.
[2022-06-11 06:43] VITALS: BP 123/71; PULSE 71; RESP 16
== END 2022-06-11 07:01 | disposition home or self-care (01) ==
LOC: EC 05:18
DX: J45.909 Unspecified asthma, uncomplicated (principal); K21.9 Gastro-esophageal reflux disease without esophagitis; N28.9 Disorder of kidney and ureter, unspecified; F90.9 Attention-deficit hyperactivity disorder, unspecified type; F32.A Depression, unspecified; F17.200 Nicotine dependence, unspecified, uncomplicated; F12.90 Cannabis use, unspecified, uncomplicated; G40.919 Epilepsy, unspecified, intractable, without status epilepticus; G40.409 Other generalized epilepsy and epileptic syndromes, not intractable, without status epilepticus; G40.909 Epilepsy, unspecified, not intractable, without status epilepticus; Z79.51 Long term (current) use of inhaled steroids; Z91.030 Bee allergy status; Z88.1 Allergy status to other antibiotic agents; Z79.899 Other long term (current) drug therapy
CPT/HCPCS: 36415; 80156; 80164; 80053; 80185; 83735; 85025; 80143; 80179; 72170; 71045; 72125; 70450; 99285; 96374; 96375; 96361; G0480; J3360; J1170; 80320

== ENCOUNTER 2022-09-11 03:02 | Emergency (ER) | payer MEDICARE ==
[2022-09-11 03:17] VITALS: RESP 16
[2022-09-11] MEDS ORDERED: SODIUM CHLORIDE 0.9% 1,000 ML IV STA ×2 (03:43)
[2022-09-11] MEDS ORDERED: ACETAMINOPHEN IV (For NPO) 1,000 MG in EMPTY BAG 1 BAG IVPB STA (03:43)
[2022-09-11] MEDS ORDERED: KETOROLAC 15 MG/ML 1 ML VIAL IVP STA (03:43)
[2022-09-11] MEDS ORDERED: LORazepam 2 MG/ML INJ IV STA (03:43)
--- NOTE | 2022-09-11 03:44 | ED ---
Fever HPI - General Chief Complaint: Seizure Stated Complaint: Seizure Time Seen by Provider: 09/11/22 03:42 Source: patient Mode of arrival: EMS - Related Data Home Medications Medication Instructions Recorded Confirmed Albuterol Sulfate [Ventolin HFA] 2 puff INHALATION RT-Q4H PRN 11/10/14 02/01/19 Lacosamide [Vimpat] 400 mg PO HS 01/19/18 02/01/19 Pregabalin [Lyrica] 300 mg PO TID 01/19/18 02/01/19 Onfi 20mg 20 mg PO BID 01/20/18 02/01/19 Beclomethasone Dipropionate [Qvar 40 mcg INHALATION RT-DAILY 02/01/19 02/01/19 40 mcg Redihaler] Lacosamide [Vimpat] 200 mg PO BID@0600,1200 02/01/19 02/01/19 Previous Rx's Medication Instructions Recorded Hydrocodone/Acetaminophen [[place] 1 tab PO Q8HR PRN 2 Days #6 tab 08/22/19 5-325] Allergies Allergy/AdvReac Type Severity Reaction Status Date / Time bee pollen Allergy Anaphylaxis Verified 09/11/22 03:12 brivaracetam [From Briviact] Allergy Unknown Verified 09/11/22 03:12 levetiracetam [From Keppra] AdvReac anger Verified 09/11/22 03:12 Review of Systems ROS Statement: Those systems with pertinent positive or pertinent negative responses have been documented in the HPI. ROS Other: All systems not noted in ROS Statement are negative. Past Medical History Past Medical History: Asthma, GERD/Reflux, Renal Disease, Seizure Disorder Additional Past Medical History / Comment(s): Nephrolithiasis, seizures History of Any Multi-Drug Resistant Organisms: None Reported Past Surgical History: Ear Surgery Additional Past Surgical History / Comment(s): 10 BRAIN SURGERIES incuding implants and impulse procedures done at [facility], bilateral myringotomy/tubes. Past Anesthesia/Blood Transfusion Reactions: No Reported Reaction Past Psychological History: ADD/ADHD, Depression Smoking Status: Current every day smoker, Heavy tobacco smoker Past Alcohol Use History: None Reported, Rare Past Drug Use History: Marijuana - Past Family History Father Family Medical History: Myocardial Infarction ([place]) Additional Family Medical History / Comment(s): Father of a [place] at the age of 53 yrs. Mother Family Medical History: No Reported History Course Vital Signs 09/11/22 09/11/22 09/11/22 03:05 04:12 05:06 Temperature 103.0 F H 102.7 F H 101.8 F H Pulse Rate 113 H 106 H Respiratory 16 16 Rate Blood Pressure 108/55 100/62 O2 Sat by Pulse 95 99 Oximetry Medical Decision Making - Lab Data Result diagrams: 09/11/22 03:48 09/11/22 03:48 Lab Results 09/11/22 09/11/22 09/11/22 Range/Units 03:48 03:48 04:00 WBC 21.8 H (3.8-10.6) k/uL RBC 4.42 (4.30-5.90) m/uL Hgb 14.2 (13.0-17.5) gm/dL Hct 40.6 (39.0-53.0) % MCV 91.7 (80.0-100.0) fL MCH 32.1 (25.0-35.0) pg MCHC 35.0 (31.0-37.0) g/dL RDW 14.0 (11.5-15.5) % Plt Count 194 (150-450) k/uL MPV 9.0 Neutrophils % 92 % Lymphocytes % 3 % Monocytes % 3 % Eosinophils % 1 % Basophils % 0 % Neutrophils # 20.1 H (1.3-7.7) k/uL Lymphocytes # 0.7 L (1.0-4.8) k/uL Monocytes # 0.7 (0-1.0) k/uL Eosinophils # 0.1 (0-0.7) k/uL Basophils # 0.1 (0-0.2) k/uL Sodium 136 L (137-145) mmol/L Potassium 4.2 (3.5-5.1) mmol/L Chloride 103 (98-107) mmol/L Carbon Dioxide 27 (22-30) mmol/L Anion Gap 6 mmol/L BUN 13 (9-20) mg/dL Creatinine 0.87 (0.66-1.25) mg/dL Est GFR (CKD-EPI)AfAm >90 (>60 ml/min/1.73 sqM) Est GFR (CKD-EPI)NonAf >90 (>60 ml/min/1.73 sqM) Glucose 128 H (74-99) mg/dL Calcium 8.6 (8.4-10.2) mg/dL Magnesium 1.9 (1.6-2.3) mg/dL Total Bilirubin 0.4 (0.2-1.3) mg/dL AST 43 (17-59) U/L ALT 41 (4-49) U/L Alkaline Phosphatase 111 (38-126) U/L Total Protein 7.1 (6.3-8.2) g/dL Albumin 4.0 (3.5-5.0) g/dL Salicylates <1.0 mg/dL Urine Opiates Screen (NotDetected) Ur Oxycodone Screen (NotDetected) Urine Methadone Screen (NotDetected) Ur Propoxyphene Screen (NotDetected) Acetaminophen <10.0 ug/mL Ur Barbiturates Screen (NotDetected) U Tricyclic Antidepress (NotDetected) Ur Phencyclidine Scrn (NotDetected) Ur Amphetamines Screen (NotDetected) U Methamphetamines Scrn (NotDetected) U Benzodiazepines Scrn (NotDetected) Urine Cocaine Screen (NotDetected) U Marijuana (THC) Screen (NotDetected) Serum Alcohol <10 mg/dL Influenza Type A (PCR) Not Detected (Not Detectd) Influenza Type B (PCR) Not Detected (Not Detectd) RSV (PCR) Not Detected (Not Detectd) SARS-CoV-2 (PCR) Not Detected (Not Detectd) 09/11/22 Range/Units 04:54 WBC (3.8-10.6) k/uL RBC (4.30-5.90) m/uL Hgb (13.0-17.5) gm/dL Hct (39.0-53.0) % MCV (80.0-100.0) fL MCH (25.0-35.0) pg MCHC (31.0-37.0) g/dL RDW (11.5-15.5) % Plt Count (150-450) k/uL MPV Neutrophils % % Lymphocytes % % Monocytes % % Eosinophils % % Basophils % % Neutrophils # (1.3-7.7) k/uL Lymphocytes # (1.0-4.8) k/uL Monocytes # (0-1.0) k/uL Eosinophils # (0-0.7) k/uL Basophils # (0-0.2) k/uL Sodium (137-145) mmol/L Potassium (3.5-5.1) mmol/L Chloride (98-107) mmol/L Carbon Dioxide (22-30) mmol/L Anion Gap mmol/L BUN (9-20) mg/dL Creatinine (0.66-1.25) mg/dL Est GFR (CKD-EPI)AfAm (>60 ml/min/1.73 sqM) Est GFR (CKD-EPI)NonAf (>60 ml/min/1.73 sqM) Glucose (74-99) mg/dL Calcium (8.4-10.2) mg/dL Magnesium (1.6-2.3) mg/dL Total Bilirubin (0.2-1.3) mg/dL AST (17-59) U/L ALT (4-49) U/L Alkaline Phosphatase (38-126) U/L Total Protein (6.3-8.2) g/dL Albumin (3.5-5.0) g/dL Salicylates mg/dL Urine Opiates Screen Not Detected (NotDetected) Ur Oxycodone Screen Not Detected (NotDetected) Urine Methadone Screen Not Detected (NotDetected) Ur Propoxyphene Screen Not Detected (NotDetected) Acetaminophen ug/mL Ur Barbiturates Screen Not Detected (NotDetected) U Tricyclic Antidepress Not Detected (NotDetected) Ur Phencyclidine Scrn Not Detected (NotDetected) Ur Amphetamines Screen Not Detected (NotDetected) U Methamphetamines Scrn Not Detected (NotDetected) U Benzodiazepines Scrn Not Detected (NotDetected) Urine Cocaine Screen Not Detected (NotDetected) U Marijuana (THC) Screen Detected H (NotDetected) Serum Alcohol mg/dL Influenza Type A (PCR) (Not Detectd) Influenza Type B (PCR) (Not Detectd) RSV (PCR) (Not Detectd) SARS-CoV-2 (PCR) (Not Detectd) Disposition Clinical Impression: Generalized seizure, Fever Disposition: HOME SELF-CARE Instructions (If sedation given, give patient instructions): Seizure/Epilepsy Discharge Instructions & Follow-Up Is patient prescribed a controlled substance at d/c from ED?: No Referrals: Mazin Jay MD [Primary Care Provider] - 1-2 days Time of Disposition: 05:55
[2022-09-11 04:01] LABS: Basophils # (A) 0.1 k/uL (0-0.2); Basophils % (A) 0 %; Eosinophils # (A) 0.1 k/uL (0-0.7); Eosinophils % (A) 1 %; HCT 40.6 % (39.0-53.0); HGB 14.2 gm/dL (13.0-17.5); Lymphocytes # (A) 0.7 k/uL (1.0-4.8); Lymphocytes % (A) 3 %; MCH 32.1 pg (25.0-35.0); MCV 91.7 fL (80.0-100.0); Monocytes # (A) 0.7 k/uL (0-1.0); Monocytes % (A) 3 %; Neutrophils # (A) 20.1 k/uL (1.3-7.7); Neutrophils % (A) 92 %; Platelet Count 194 k/uL (150-450); RBC 4.42 m/uL (4.30-5.90); WBC 21.8 k/uL (3.8-10.6)
[2022-09-11 04:33] LABS: Chloride 103 mmol/L (98-107); Potassium 4.2 mmol/L (3.5-5.1)
[2022-09-11 04:34] LABS: ALT 41 U/L (4-49); AST 43 U/L (17-59); Acetaminophen <10.0 ug/mL; African American GFR (CKD) >90 (>60 ml/min/1.73 sqM); Alcohol <10 mg/dL; Alkaline Phosphatase 111 U/L (38-126); Anion Gap 6 mmol/L; Blood Urea Nitrogen 13 mg/dL (9-20); Calcium 8.6 mg/dL (8.4-10.2); Carbon Dioxide 27 mmol/L (22-30); Glucose 128 mg/dL (74-99); Magnesium 1.9 mg/dL (1.6-2.3); Non-African American GFR(CKD) >90 (>60 ml/min/1.73 sqM); Salicylate <1.0 mg/dL; Sodium 136 mmol/L (137-145); Total Bilirubin 0.4 mg/dL (0.2-1.3); Total Protein 7.1 g/dL (6.3-8.2)
[2022-09-11 05:39] LABS: Amphetamine Screen,Urine Not Detected (NotDetected); Barbiturate Screen,Urine Not Detected (NotDetected); Benzodiazepines Screen,Urine Not Detected (NotDetected); Cocaine Screen,Urine Not Detected (NotDetected); Methadone Screen, Urine Not Detected (NotDetected); Opiate Screen,Urine Not Detected (NotDetected); Oxycodone Screen, Urine Not Detected (NotDetected); Phencyclidine Screen,Urine Not Detected (NotDetected); Tricyclic Antidepressant,Urine Not Detected (NotDetected); Urn Cannabinoid Scrn Detected (NotDetected)
[2022-09-11 06:20] VITALS: BP 104/69; PULSE 90; TEMP 98.9
== END 2022-09-11 06:10 | disposition home or self-care (01) ==
LOC: EC 03:02
DX: G40.909 Epilepsy, unspecified, not intractable, without status epilepticus (principal); R50.9 Fever, unspecified; J45.909 Unspecified asthma, uncomplicated; F17.200 Nicotine dependence, unspecified, uncomplicated; F12.90 Cannabis use, unspecified, uncomplicated; Z20.822 Contact with and (suspected) exposure to COVID-19; Z79.899 Other long term (current) drug therapy
CPT/HCPCS: 36415; 93005; 80053; 83735; 85025; 80306; 80143; 87636; 80179; 99285; 96374; 96375; 96361 ×2; G0480; J0131; J1885; 80320

== ENCOUNTER 2023-01-22 02:27 | Emergency (ER) | payer MEDICARE | END 2023-01-22 02:39 | disposition home or self-care (01) | LOC: EC 02:27 | DX: S01.01XA Laceration without foreign body of scalp, initial encounter (principal); J45.909 Unspecified asthma, uncomplicated; W19.XXXA Unspecified fall, initial encounter | CPT/HCPCS: 12001; 99283 ==

== ENCOUNTER 2023-02-10 17:57 | Emergency (ER) | payer MEDICARE ==
[2023-02-10 18:04] VITALS: BP 113/72; PULSE 67; RESP 18; TEMP 98.9
[2023-02-10 19:08] LABS: Appearance,Urine Clear (Clear); Bilirubin,Urine Negative (Negative); Blood,Urine Negative (Negative); Color,Urine Yellow; Glucose,Urine (UA) Negative (Negative); Ketones,Urine Negative (Negative); Leukocyte Esterase,Urine Negative (Negative); Nitrite,Urine Negative (Negative); PH, Urine 7.5 (5.0-8.0); Protein,Urine Negative (Negative); Urobilinogen,Urine <2.0 mg/dL (<2.0)
[2023-02-10 19:12] LABS: Basophils % (A) 0 %; Eosinophils # (A) 0.1 k/uL (0-0.7); Eosinophils % (A) 2 %; HCT 41.5 % (39.0-53.0); HGB 14.2 gm/dL (13.0-17.5); Lymphocytes # (A) 1.6 k/uL (1.0-4.8); Lymphocytes % (A) 23 %; MCH 31.1 pg (25.0-35.0); MCHC 34.1 g/dL (31.0-37.0); Monocytes # (A) 0.5 k/uL (0-1.0); Monocytes % (A) 7 %; Neutrophils # (A) 4.9 k/uL (1.3-7.7); Neutrophils % (A) 67 %; Platelet Count 214 k/uL (150-450); RBC 4.56 m/uL (4.30-5.90); RDW 14.2 % (11.5-15.5); WBC 7.3 k/uL (3.8-10.6)
--- NOTE | 2023-02-10 19:27 | ED ---
Seizure HPI - General Chief Complaint: Seizure Stated Complaint: Seizures Time Seen by Provider: 02/10/23 18:05 Source: patient, EMS Mode of arrival: EMS - History of Present Illness Initial Comments: 37-year-old male with past medical history of seizures disorder presents to the emergency department after he had "25" seizures at home. Father is at bedside and provides additional history. States that the patient had several seizures, each of which only lasted a couple of seconds. It patient does have seizure disorder with breakthrough seizures that happen approximately once every 3 months. He follows with a neurologist in [place]. He recently had medication changes as his previous seizure medications for causing him ill side effects. Today the patient was out mowing the lawn when he came inside and had sudden onset of symptoms. He did take one of his oral Klonopin. He had 1 seizure en route to the hospital however is alert and oriented upon my evaluatio n in the ED. He denies any headaches or visual changes. No trauma sustained during the seizures. He did not bite his tongue. No bladder incontinence. No other alleviating, precipitating or modifying factors - Related Data Home Medications Medication Instructions Recorded Confirmed Albuterol Sulfate [Ventolin HFA] 2 puff INHALATION RT-Q4H PRN 11/10/14 02/01/19 Lacosamide [Vimpat] 400 mg PO HS 01/19/18 02/01/19 Pregabalin [Lyrica] 300 mg PO TID 01/19/18 02/01/19 Onfi 20mg 20 mg PO BID 01/20/18 02/01/19 Beclomethasone Dipropionate [Qvar 40 mcg INHALATION RT-DAILY 02/01/19 02/01/19 40 mcg Redihaler] Lacosamide [Vimpat] 200 mg PO BID@0600,1200 02/01/19 02/01/19 Previous Rx's Medication Instructions Recorded Hydrocodone/Acetaminophen [[place] 1 tab PO Q8HR PRN 2 Days #6 tab 08/22/19 5-325] Amoxicillin 500 mg PO Q8H #30 capsule 09/11/22 Allergies Allergy/AdvReac Type Severity Reaction Status Date / Time bee pollen Allergy Anaphylaxis Verified 02/10/23 18:04 brivaracetam [From Briviact] Allergy Unknown Verified 02/10/23 18:04 levetiracetam [From [facility]] AdvReac anger Verified 02/10/23 18:04 Review of Systems ROS Statement: Those systems with pertinent positive or pertinent negative responses have been documented in the HPI. ROS Other: All systems not noted in ROS Statement are negative. Past Medical History Past Medical History: Asthma, GERD/Reflux, Renal Disease, Seizure Disorder Additional Past Medical History / Comment(s): Nephrolithiasis, seizures History of Any Multi-Drug Resistant Organisms: None Reported Past Surgical History: Ear Surgery Additional Past Surgical History / Comment(s): 10 BRAIN SURGERIES incuding implants and impulse procedures done at [facility], bilateral myringotomy/tubes. Past Anesthesia/Blood Transfusion Reactions: No Reported Reaction Past Psychological History: ADD/ADHD, Depression Smoking Status: Current every day smoker, Heavy tobacco smoker Past Alcohol Use History: None Reported, Rare Past Drug Use History: Marijuana - Past Family History Father Family Medical History: Myocardial Infarction ([place]) Additional Family Medical History / Comment(s): Father of a [place] at the age of 53 yrs. Mother Family Medical History: No Reported History General Exam General appearance: alert, in no apparent distress Head exam: Present: normocephalic, other (old, well healed surgical incisions on scalp) Eye exam: Present: normal appearance, PERRL, EOMI. Absent: scleral icterus, conjunctival injection, periorbital swelling ENT exam: Present: normal exam, mucous membranes moist Neck exam: Present: normal inspection. Absent: tenderness, meningismus, lymphadenopathy Respiratory exam: Present: normal lung sounds bilaterally. Absent: respiratory distress, wheezes, rales, rhonchi, stridor Cardiovascular Exam: Present: regular rate, normal rhythm, normal heart sounds. Absent: systolic murmur, diastolic murmur, rubs, gallop, clicks GI/Abdominal exam: Present: soft, normal bowel sounds. Absent: distended, tenderness, guarding, rebound, rigid Extremities exam: Present: normal inspection, full ROM, normal capillary refill. Absent: tenderness, pedal edema, joint swelling, calf tenderness Back exam: Present: normal inspection Neurological exam: Present: alert, oriented X3, CN II-XII intact Psychiatric exam: Present: normal affect, normal mood Skin exam: Present: warm, dry, intact, normal color. Absent: rash Course Vital Signs 02/10/23 17:58 Temperature 98.9 F Pulse Rate 67 Respiratory 18 Rate Blood Pressure 113/72 O2 Sat by Pulse 98 Oximetry Medical Decision Making - Medical Decision Making Was pt. sent in by a medical professional or institution (MARIO Philip, [employer], urgent care, hospital, or residential...) When possible be specific @ -No Did you speak to anyone other than the patient for history (EMS, parent, family, police, friend...)? What history was obtained from this source @ -Father Did you review nursing and triage notes (agree or disagree)? Why? @ -I reviewed and agree with nursing and triage notes Were old charts reviewed (outside hosp., previous admission, EMS record, old EKG, old radiological studies, urgent care reports/EKG's, residential records)? Report findings @ -No Differential Diagnosis (chest pain, altered mental status, abdominal pain women, abdominal pain men, vaginal bleeding, weakness, fever, dyspnea, syncope, headache, dizziness, GI bleed, back pain, seizure, CVA, palpatations, mental health, musculoskeletal)? @ -cva, tia, epileptic seizure, focal seizure, hyponatremia, migraine EKG interpreted by me (3pts min.). @ -Yes and demonstrates a sinus bradycardia with a rate of 56. WA interval 154. QRS 93. QTC of 402. Inverted T-wave lead [address] and [address]VL. No acute ST segment elevation X-rays interpreted by me (1pt min.). @ -None done CT interpreted by me (1pt min.). @ -None done U/S interpreted by me (1pt. min.). @ -None done What testing was considered but not performed or refused? (CT, X-rays, U/S, labs)? Why? @ -None What meds were considered but not given or refused? Why? @ -None Did you discuss the management of the patient with other professionals (professionals i.e. MARIO Philip, [employer], lab, RT, psych nurse, criminal justice social worker, drafter, teacher, chief environmental commitment officer, porter sample case)? Give summary @ -no Was smoking cessation discussed for >3mins.? @ -No Was critical care preformed (if so, how long)? @ -no Were there social determinants of health that impacted care today? How? (Homelessness, low income, unemployed, alcoholism, drug addiction, transportation, low edu. Level, literacy, decrease access to med. care, alf, rehab)? @ -No Was there de-escalation of care discussed even if they declined (Discuss DNR or withdrawal of care, Hospice)? DNR status @ -No What co-morbidities impacted this encounter? (DM, HTN, Smoking, COPD, CAD, C ancer, CVA, ARF, Chemo, Hep., AIDS, mental health diagnosis, sleep apnea, morbid obesity)? @ -Seizure disorder, tbi Was patient admitted / discharged? Hospital course, mention meds given and route, prescriptions, significant lab abnormalities, going to OR and other pertinent info. @@ -Upon arrival the patient was placed into hallway 26. A thorough history and physical exam was performed. Patient not actively seizing at this time. I did recommend laboratory studies and a urinalysis for which the patient was agreeable. Results are reviewed and discussed the patient. Did offer admission however the patient would prefer to follow up with his own neurologist at this time. He will be discharged home. Instructed to call his neurology office in the morning to make an appointment. Follow up with his doctor and return for any new or worsening symptoms. Patient agreeable to plan and was discharged home in stable condition Undiagnosed new problem with uncertain prognosis? @ -no Drug Therapy requiring intensive monitoring for toxicity (Heparin, Nitro, Insulin, Cardizem)? @ -No Were any procedures done? @ -No Diagnosis/symptom? @ -acute breakthrough seizure, seizure disorder Acute, or Chronic, or Acute on Chronic? @ -acute on chronic Uncomplicated (without systemic symptoms) or Complicated (systemic symptoms)? @ -complicated Side effects of treatment? @ -No Exacerbation, Progression, or Severe Exacerbation? @ -No Poses a threat to life or bodily function? How? (Chest pain, [place], [place], pneumonia, PE, COPD, DKA, ARF, appy, cholecystitis, CVA, Diverticulitis, Homicidal, Suicidal, threat to staff... and all critical care pts) @ -yes, patient can from seizures - Lab Data Result diagrams: 02/10/23 18:52 02/10/23 18:52 Lab Results 02/10/23 02/10/23 02/10/23 Range/Units 18:52 18:52 18:52 WBC 7.3 (3.8-10.6) k/uL RBC 4.56 (4.30-5.90) m/uL Hgb 14.2 (13.0-17.5) gm/dL Hct 41.5 (39.0-53.0) % MCV 91.0 (80.0-100.0) fL MCH 31.1 (25.0-35.0) pg MCHC 34.1 (31.0-37.0) g/dL RDW 14.2 (11.5-15.5) % Plt Count 214 (150-450) k/uL MPV 9.0 Neutrophils % 67 % Lymphocytes % 23 % Monocytes % 7 % Eosinophils % 2 % Basophils % 0 % Neutrophils # 4.9 (1.3-7.7) k/uL Lymphocytes # 1.6 (1.0-4.8) k/uL Monocytes # 0.5 (0-1.0) k/uL Eosinophils # 0.1 (0-0.7) k/uL Basophils # 0.0 (0-0.2) k/uL Sodium 138 (137-145) mmol/L Potassium 3.9 (3.5-5.1) mmol/L Chloride 101 (98-107) mmol/L Carbon Dioxide 30 (22-30) mmol/L Anion Gap 7 mmol/L BUN 12 (9-20) mg/dL Creatinine 1.25 (0.66-1.25) mg/dL Est GFR (CKD-EPI)AfAm 86 (>60 ml/min/1.73 sqM) Est GFR (CKD-EPI)NonAf 74 (>60 ml/min/1.73 sqM) Glucose 92 (74-99) mg/dL Calcium 8.9 (8.4-10.2) mg/dL Magnesium 2.3 (1.6-2.3) mg/dL Total Bilirubin 0.3 (0.2-1.3) mg/dL AST 36 (17-59) U/L ALT 28 (4-49) U/L Alkaline Phosphatase 81 (38-126) U/L Total Protein 7.0 (6.3-8.2) g/dL Albumin 4.1 (3.5-5.0) g/dL Urine Color Yellow Urine Appearance Clear (Clear) Urine pH 7.5 (5.0-8.0) Ur Specific [place] 1.010 (1.001-1.035) Urine Protein Negative (Negative) Urine Glucose (UA) Negative (Negative) Urine Ketones Negative (Negative) Urine Blood Negative (Negative) Urine Nitrite Negative (Negative) Urine Bilirubin Negative (Negative) Urine Urobilinogen <2.0 (<2.0) mg/dL Ur Leukocyte Esterase Negative (Negative) Disposition Clinical Impression: Breakthrough seizure Disposition: HOME SELF-CARE Condition: Stable Instructions (If sedation given, give patient instructions): Recurrent Seizures in Adults (ED) Additional Instructions: Please follow-up with your neurologist. Have them adjust your seizure med ications. Return for any new or worsening symptoms Is patient prescribed a controlled substance at d/c from ED?: No Referrals: Mazin Jay MD [Primary Care Provider] - 1-2 days Time of Disposition: 20:05
[2023-02-10 19:34] LABS: Potassium 3.9 mmol/L (3.5-5.1)
[2023-02-10 19:57] LABS: ALT 28 U/L (4-49); AST 36 U/L (17-59); African American GFR (CKD) 86 (>60 ml/min/1.73 sqM); Albumin 4.1 g/dL (3.5-5.0); Alkaline Phosphatase 81 U/L (38-126); Anion Gap 7 mmol/L; Blood Urea Nitrogen 12 mg/dL (9-20); Calcium 8.9 mg/dL (8.4-10.2); Carbon Dioxide 30 mmol/L (22-30); Chloride 101 mmol/L (98-107); Glucose 92 mg/dL (74-99); Magnesium 2.3 mg/dL (1.6-2.3); Non-African American GFR(CKD) 74 (>60 ml/min/1.73 sqM); Sodium 138 mmol/L (137-145); Total Bilirubin 0.3 mg/dL (0.2-1.3)
== END 2023-02-10 21:06 | disposition home or self-care (01) ==
LOC: EC 17:57
DX: R56.9 Unspecified convulsions (principal); J45.909 Unspecified asthma, uncomplicated; F32.A Depression, unspecified; F17.200 Nicotine dependence, unspecified, uncomplicated; F12.90 Cannabis use, unspecified, uncomplicated; Z91.030 Bee allergy status; Z88.8 Allergy status to other drugs, medicaments and biological substances; Z79.51 Long term (current) use of inhaled steroids; Z79.899 Other long term (current) drug therapy
CPT/HCPCS: 36415; 80053; 81003; 83735; 85025; 93005; 99284

== ENCOUNTER 2023-07-22 06:17 | Emergency (ER) | payer MEDICARE ==
[2023-07-22] MEDS ORDERED: SODIUM CHLORIDE 0.9% 1,000 ML IV STA (06:22)
[2023-07-22 06:54] LABS: Basophils % (A) 1 %; Eosinophils # (A) 0.1 k/uL (0-0.7); Eosinophils % (A) 2 %; HCT 43.8 % (39.0-53.0); HGB 15.1 gm/dL (13.0-17.5); Lymphocytes # (A) 1.1 k/uL (1.0-4.8); Lymphocytes % (A) 23 %; MCH 32.6 pg (25.0-35.0); MCHC 34.5 g/dL (31.0-37.0); MCV 94.5 fL (80.0-100.0); Mean Platelet Volume 9.4; Monocytes # (A) 0.3 k/uL (0-1.0); Monocytes % (A) 6 %; Neutrophils # (A) 3.2 k/uL (1.3-7.7); Neutrophils % (A) 67 %; Platelet Count 194 k/uL (150-450); RBC 4.63 m/uL (4.30-5.90); RDW 14.7 % (11.5-15.5); WBC 4.8 k/uL (3.8-10.6)
[2023-07-22 07:07] LABS: ALT 28 U/L (4-49); African American GFR (CKD) >90 (>60 ml/min/1.73 sqM); Anion Gap 5 mmol/L; Blood Urea Nitrogen 11 mg/dL (9-20); Calcium 8.8 mg/dL (8.4-10.2); Carbon Dioxide 29 mmol/L (22-30); Chloride 104 mmol/L (98-107); Glucose 95 mg/dL (74-99); Non-African American GFR(CKD) >90 (>60 ml/min/1.73 sqM); Sodium 138 mmol/L (137-145)
[2023-07-22 07:10] LABS: Potassium 4.9 mmol/L (3.5-5.1)
[2023-07-22 07:11] LABS: AST 51 U/L (17-59); Albumin 4.1 g/dL (3.5-5.0); Alkaline Phosphatase 62 U/L (38-126); Magnesium 2.2 mg/dL (1.6-2.3); Total Bilirubin 0.9 mg/dL (0.2-1.3)
--- NOTE | 2023-07-22 07:49 | ED ---
General Adult HPI - General Chief complaint: Fall Stated complaint: Seizure Time Seen by Provider: 07/22/23 06:21 Source: patient, EMS, RN notes reviewed Mode of arrival: EMS Limitations: no limitations - History of Present Illness Initial comments: 37-year-old male with past medical history significant for recurrent seizures presents the emergency department via EMS for seizure. Patient reports that he had multiple seizures throughout the night. He does report that he was wearing his dentures and has a laceration to his gumline. He has been taking Lyrica, Vimpat and Xcorbi is prescribed. He reports recurrent breakthrough seizures. He denies any dizziness or lightheadedness, vision changes or headache, nausea or vomiting. - Related Data Home Medications Medication Instructions Recorded Confirmed Albuterol Sulfate [Ventolin HFA] 2 puff INHALATION RT-Q4H PRN 11/10/14 02/01/19 Lacosamide [Vimpat] 400 mg PO HS 01/19/18 02/01/19 Pregabalin [Lyrica] 300 mg PO TID 01/19/18 02/01/19 Onfi 20mg 20 mg PO BID 01/20/18 02/01/19 Beclomethasone Dipropionate [Qvar 40 mcg INHALATION RT-DAILY 02/01/19 02/01/19 40 mcg Redihaler] Lacosamide [Vimpat] 200 mg PO BID@0600,1200 02/01/19 02/01/19 Previous Rx's Medication Instructions Recorded Hydrocodone/Acetaminophen [[place] 1 tab PO Q8HR PRN 2 Days #6 tab 08/22/19 5-325] Amoxicillin 500 mg PO Q8H #30 capsule 09/11/22 Allergies Allergy/AdvReac Type Severity Reaction Status Date / Time bee pollen Allergy Anaphylaxis Verified 04/29/23 20:18 brivaracetam [From Briviact] Allergy Unknown Verified 04/29/23 20:18 levetiracetam [From Keppra] AdvReac anger Verified 04/29/23 20:18 Review of Systems ROS Statement: Those systems with pertinent positive or pertinent negative responses have been documented in the HPI. ROS Other: All systems not noted in ROS Statement are negative. Past Medical History Past Medical History: Asthma, GERD/Reflux, Renal Disease, Seizure Disorder Additional Past Medical History / Comment(s): Nephrolithiasis, seizures History of Any Multi-Drug Resistant Organisms: MRSA Date of last positivie culture/infection: 2021 Past Surgical History: Ear Surgery Additional Past Surgical History / Comment(s): 10 BRAIN SURGERIES incuding implants and impulse procedures done at [facility], bilateral myringotomy/tubes. Past Anesthesia/Blood Transfusion Reactions: No Reported Reaction Past Psychological History: ADD/ADHD, Depression Smoking Status: Current every day smoker, Heavy tobacco smoker Past Alcohol Use History: None Reported, Rare Past Drug Use History: Marijuana - Past Family History Father Family Medical History: Myocardial Infarction ([place]) Additional Family Medical History / Comment(s): Father of a [place] at the age of 53 yrs. Mother Family Medical History: No Reported History General Exam - General Exam Comments Initial Comments: General: Alert, in no acute distress Head: atraumatic normocephalic. Eyes PERRL, EOMI intact, mucous membranes moist Respiratory: Lungs clear to auscultation bilaterally Cardiovascular: Heart rate regular rate and rhythm Abdominal: Soft without guarding or rebound Extremities: Normal inspection with full range of motion and normal capillary refill Neuroogic: alert and oriented 3, CN II-XII intact, able to ambulate with steady gait Skin: warm dry and intact with normal color Limitations: no limitations Course Vital Signs 07/22/23 07/22/23 07/22/23 06:20 07:00 07:33 Temperature 97.6 F Pulse Rate 78 60 73 Respiratory 16 16 18 Rate Blood Pressure 109/71 109/71 110/68 O2 Sat by Pulse 93 L 95 97 Oximetry 07/22/23 08:00 Temperature 98.2 F Pulse Rate 65 Respiratory 16 Rate Blood Pressure 116/81 O2 Sat by Pulse 98 Oximetry - Reevaluation(s) Reevaluation #1: 07/22/23 07:48 Re-Evaluated. Patient requesting to leave and be discharged at this time. Patient reports that he is unable to provide a urine sample. Patient will be discharged prior to completion of workup. EKG Findings - EKG Comments: EKG Findings:: I interpreted the following: EKG performed at 06:39 rate 74 bpm normal sinus rhythm FL interval 166, QRS 94, QT/QTc 380/408 Medical Decision Making - Medical Decision Making Was pt. sent in by a medical professional or institution (, PA, OIL CHANGER, urgent care, hospital, or custodial...) When possible be specific @ -[No] Did you speak to anyone other than the patient for history (EMS, parent, family, police, friend...)? What history was obtained from this source @ -[No] Did you review nursing and triage notes (agree or disagree)? Why? @ -[I reviewed and agree with nursing and triage notes] Were old charts reviewed (outside hosp., previous admission, EMS record, old EKG, old radiological studies, urgent care reports/EKG's, custodial records)? Report findings @ -Yes old charts were reviewed] Differential Diagnosis (chest pain, altered mental status, abdominal pain women, abdominal pain men, vaginal bleeding, weakness, fever, dyspnea, syncope, headache, dizziness, GI bleed, back pain, seizure, CVA, palpatations, mental health, musculoskeletal)? @ -[not applicable] EKG interpreted by me (3pts min.). @ -[As above] X-rays interpreted by me (1pt min.). @ -[None done] CT interpreted by me (1pt min.). @ -[None done] U/S interpreted by me (1pt. min.). @ -[None done] What testing was considered but not performed or refused? (CT, X-rays, U/S, labs)? Why? @ -[None] What meds were considered but not given or refused? Why? @ -[None] Did you discuss the management of the patient with other professionals (professionals i.e. , PA, OIL CHANGER, lab, RT, psych nurse, social psychologist, meteorological technician, teacher, forest fire management officer, case making machine operator)? Give summary @ -[No] Was smoking cessation discussed for >3mins.? @ -[No] Was critical care preformed (if so, how long)? @ -[No] Were there social determinants of health that impacted care today? How? (Homelessness, low income, unemployed, alcoholism, drug addiction, transportation, low edu. Level, literacy, decrease access to med. care, fdc, rehab)? @ -[No] Was there de-escalation of care discussed even if they declined (Discuss DNR or withdrawal of care, Hospice)? DNR status @ -[No] What co-morbidities impacted this encounter? (DM, HTN, Smoking, COPD, CAD, Cancer, CVA, ARF, Chemo, Hep., AIDS, mental health diagnosis, sleep apnea, morbid obesity)? @ -[None] Was patient admitted / discharged? Hospital course, mention meds given and route, prescriptions, significant lab abnormalities, going to OR and other pertinent info. @ -Discharged. This is a 37-year-old male who presents the emergency department with a chief complaint of seizures. Patient had a thorough history and physical exam performed. Physical exam reveals no focal neuro deficits. Vital signs are stable. Heart regular rate and rhythm, lungs are to auscultation bilaterally abdomen soft and nontender. Patient had laboratory kevin dies which were unremarkable. Patient was encouraged to provide urine sample however he refused patient states that he will be unable to provide a urine sample and would like to be discharged home at this time. Patient will be discharged without completion of workup. Risks and benefits were discussed at length regarding eloping prior to completion of ER workup. Patient verbalized understanding. Patient requesting to be discharged. Case is discussed with PAO Simpson who agrees with POC. Undiagnosed new problem with uncertain prognosis? @ -[No] Drug Therapy requiring intensive monitoring for toxicity (Heparin, Nitro, Insulin, Cardizem)? @ -[No] Were any procedures done? @ -[No] Diagnosis/symptom? @ -Seizure Acute, or Chronic, or Acute on Chronic? @ Acute on Chronic Uncomplicated (without systemic symptoms) or Complicated (systemic symptoms)? @ Uncomplicated Side effects of treatment? @ -[No] Exacerbation, Progression, or Severe Exacerbation? @ -[No] Poses a threat to life or bodily function? How? (Chest pain, [place], [place], pneumonia, PE, COPD, DKA, ARF, appy, cholecystitis, CVA, Diverticulitis, Homicidal, Suicidal, threat to staff... and all critical care pts) @ -Low likelihood - Lab Data Result diagrams: 07/22/23 06:44 07/22/23 06:44 Lab Results 07/22/23 07/22/23 Range/Units 06:44 06:44 WBC 4.8 (3.8-10.6) k/uL RBC 4.63 (4.30-5.90) m/uL Hgb 15.1 (13.0-17.5) gm/dL Hct 43.8 (39.0-53.0) % MCV 94.5 (80.0-100.0) fL MCH 32.6 (25.0-35.0) pg MCHC 34.5 (31.0-37.0) g/dL RDW 14.7 (11.5-15.5) % Plt Count 194 (150-450) k/uL MPV 9.4 Neutrophils % 67 % Lymphocytes % 23 % Monocytes % 6 % Eosinophils % 2 % Basophils % 1 % Neutrophils # 3.2 (1.3-7.7) k/uL Lymphocytes # 1.1 (1.0-4.8) k/uL Monocytes # 0.3 (0-1.0) k/uL Eosinophils # 0.1 (0-0.7) k/uL Basophils # 0.0 (0-0.2) k/uL Sodium 138 (137-145) mmol/L Potassium 4.9 (3.5-5.1) mmol/L Chloride 104 (98-107) mmol/L Carbon Dioxide 29 (22-30) mmol/L Anion Gap 5 mmol/L BUN 11 (9-20) mg/dL Creatinine 1.00 (0.66-1.25) mg/dL Est GFR (CKD-EPI)AfAm >90 (>60 ml/min/1.73 sqM) Est GFR (CKD-EPI)NonAf >90 (>60 ml/min/1.73 sqM) Glucose 95 (74-99) mg/dL Calcium 8.8 (8.4-10.2) mg/dL Magnesium 2.2 (1.6-2.3) mg/dL Total Bilirubin 0.9 (0.2-1.3) mg/dL AST 51 (17-59) U/L ALT 28 (4-49) U/L Alkaline Phosphatase 62 (38-126) U/L Total Protein 7.0 (6.3-8.2) g/dL Albumin 4.1 (3.5-5.0) g/dL Disposition Clinical Impression: Seizure disorder Disposition: HOME SELF-CARE Condition: Stable Instructions (If sedation given, give patient instructions): Seizure/Epilepsy Discharge Instructions & Follow-Up, Epilepsy (ED), Recurrent Seizures in Adults (ED) Additional Instructions: Continue taking antiseizure medications as prescribed Return to the nearest is emergency department if worsening symptoms or recurrent seizures Is patient prescribed a controlled substance at d/c from ED?: No Referrals: Mazin Jay MD [Primary Care Provider] - 1-2 days Time of Disposition: 07:49
[2023-07-22 08:19] VITALS: BP 116/81; PULSE 65; RESP 16; TEMP 98.2
== END 2023-07-22 08:04 | disposition home or self-care (01) ==
LOC: EC 06:17
DX: G40.909 Epilepsy, unspecified, not intractable, without status epilepticus (principal); J45.909 Unspecified asthma, uncomplicated; F17.200 Nicotine dependence, unspecified, uncomplicated; F12.90 Cannabis use, unspecified, uncomplicated; Z86.59 Personal history of other mental and behavioral disorders; Z79.899 Other long term (current) drug therapy; Z91.030 Bee allergy status; Z88.8 Allergy status to other drugs, medicaments and biological substances
CPT/HCPCS: 36415; 80053; 83735; 85025; 93005; 96360; 99285

== ENCOUNTER 2023-09-27 14:44 | Emergency (ER) | payer MEDICARE ==
--- NOTE | 2023-09-27 15:05 | ED ---
Seizure HPI - General Chief Complaint: Seizure Stated Complaint: Seizure Time Seen by Provider: 09/27/23 14:49 Source: patient, EMS, RN notes reviewed Mode of arrival: EMS Limitations: no limitations - History of Present Illness Initial Comments: 37 on the presents emergency department via EMS chief complaint of multiple seizures. Patient only has approximate 10 seizures today. Patient probably has much more than that today. Patient states he saw his neurologist in [place] 2 days ago in which they adjusted his brain stimulator settings he states he is unsure why because he was not have any worsening of symptoms. He has no complaints other than diffuse bodyaches. He denies chest pain shortness of breath. Patient states has not missed any of his doses. - Related Data Home Medications Medication Instructions Recorded Confirmed Albuterol Sulfate [Ventolin HFA] 2 puff INHALATION RT-Q4H PRN 11/10/14 02/01/19 Lacosamide [Vimpat] 400 mg PO HS 01/19/18 02/01/19 Pregabalin [Lyrica] 300 mg PO TID 01/19/18 02/01/19 Onfi 20mg 20 mg PO BID 01/20/18 02/01/19 Beclomethasone Dipropionate [Qvar 40 mcg INHALATION RT-DAILY 02/01/19 02/01/19 40 mcg Redihaler] Lacosamide [Vimpat] 200 mg PO BID@0600,1200 02/01/19 02/01/19 Previous Rx's Medication Instructions Recorded Hydrocodone/Acetaminophen [[place] 1 tab PO Q8HR PRN 2 Days #6 tab 08/22/19 5-325] Amoxicillin 500 mg PO Q8H #30 capsule 09/11/22 Allergies Allergy/AdvReac Type Severity Reaction Status Date / Time bee pollen Allergy Anaphylaxis Verified 09/27/23 15:02 brivaracetam [From Briviact] Allergy Unknown Verified 09/27/23 15:02 levetiracetam [From Keppra] AdvReac anger Verified 09/27/23 15:02 Review of Systems ROS Statement: Those systems with pertinent positive or pertinent negative responses have been documented in the HPI. ROS Other: All systems not noted in ROS Statement are negative. Past Medical History Past Medical History: Asthma, GERD/Reflux, Renal Disease, Seizure Disorder Additional Past Medical History / Comment(s): Nephrolithiasis, seizures History of Any Multi-Drug Resistant Organisms: MRSA Date of last positivie culture/infection: 2021 Past Surgical History: Ear Surgery Additional Past Surgical History / Comment(s): 10 BRAIN SURGERIES incuding implants and impulse procedures done at [facility], bilateral myringotomy/tubes. Past Anesthesia/Blood Transfusion Reactions: No Reported Reaction Past Psychological History: ADD/ADHD, Depression Smoking Status: Current every day smoker, Heavy tobacco smoker Past Alcohol Use History: None Reported, Rare Past Drug Use History: Marijuana - Past Family History Father Family Medical History: Myocardial Infarction ([place]) Additional Family Medical History / Comment(s): Father of a [place] at the age of 53 yrs. Mother Family Medical History: No Reported History General Exam General appearance: alert, in no apparent distress Head exam: Present: atraumatic, normocephalic, normal inspection Eye exam: Present: normal appearance, PERRL, EOMI. Absent: scleral icterus, conjunctival injection, periorbital swelling ENT exam: Present: mucous membranes moist Neck exam: Present: normal inspection, full ROM. Absent: tenderness, meningismus, lymphadenopathy Respiratory exam: Present: normal lung sounds bilaterally. Absent: respiratory distress, wheezes, rales, rhonchi, stridor Cardiovascular Exam: Present: regular rate, normal rhythm, normal heart sounds. Absent: systolic murmur, diastolic murmur, rubs, gallop, clicks GI/Abdominal exam: Present: soft, normal bowel sounds. Absent: distended, tenderness, guarding, rebound, rigid Course Vital Signs 09/27/23 09/27/23 09/27/23 14:46 15:03 15:08 Temperature 103.1 F H Pulse Rate 91 85 Respiratory 14 16 Rate Blood Pressure 92/78 128/77 O2 Sat by Pulse 95 96 Oximetry 09/27/23 16:02 Temperature 100.5 F H Pulse Rate 94 Respiratory 17 Rate Blood Pressure 112/73 O2 Sat by Pulse 97 Oximetry Medical Decision Making - Medical Decision Making Was pt. sent in by a medical professional or institution (, PA, INTEGRITY ANALYST, urgent care, hospital, or snf...) When possible be specific @ -No Did you speak to anyone other than the patient for history (EMS, parent, family, police, friend...)? What history was obtained from this source @ -No Did you review nursing and triage notes (agree or disagree)? Why? @ -I reviewed and agree with nursing and triage notes Were old charts reviewed (outside hosp., previous admission, EMS record, old EKG, old radiological studies, urgent care reports/EKG's, snf records)? Report findings @ -No old charts were reviewed Differential Diagnosis (chest pain, altered mental status, abdominal pain women, abdominal pain men, vaginal bleeding, weakness, fever, dyspnea, syncope, headache, dizziness, GI bleed, back pain, seizure, CVA, palpatations, mental health, musculoskeletal)? @ -COVID 19, RSV, influenza, pneumonia, acute bronchitis, URI, this list is not all inclusive differential Seizure: Recurrent seizure disorder, febrile seizure, alcohol withdrawal, stimulants, meningitis, encephalitis, intercranial hemorrhage, intracranial tumor, stroke, eclampsia, thyrotoxicosis, hypocalcemia, hyponatremia, hypernatremia, hypomagnesemia, psychogenic, this is not meant to be an all-inclusive list. EKG interpreted by me (3pts min.). @ -[None X-rays interpreted by me (1pt min.). @ -None done CT interpreted by me (1pt min.). @ -None done U/S interpreted by me (1pt. min.). @ -None done What testing was considered but not performed or refused? (CT, X-rays, U/S, labs)? Why? @ -None What meds were considered but not given or refused? Why? @ -None Did you discuss the management of the patient with other professionals (professionals i.e. , PA, INTEGRITY ANALYST, lab, RT, psych nurse, social media community manager, immigration lawyer, teacher, commanding officer garage, rn case management)? Give summary @ -No Was smoking cessation discussed for >3mins.? @ -No Was critical care preformed (if so, how long)? @ -No Were there social determinants of health that impacted care today? How? (Homelessness, low income, unemployed, alcoholism, drug addiction, transportation, low edu. Level, literacy, decrease access to med. care, retirement, rehab)? @ -No Was there de-escalation of care discussed even if they declined (Discuss DNR or withdrawal of care, Hospice)? DNR status @ -No What co-morbidities impacted this encounter? (DM, HTN, Smoking, COPD, CAD, Cancer, CVA, ARF, Chemo, Hep., AIDS, mental health diagnosis, sleep apnea, morbid obesity)? @ -[Seizure Was patient admitted / discharged? Hospital course, mention meds given and route, prescriptions, significant lab abnormalities, going to OR and other pertinent info. @ -Discharge patient is influenza be positive. Patient does have a history of seizures which has been stable in the emergency department. Patient will be discharged in stable condition return pressure discussed. Undiagnosed new problem with uncertain prognosis? @ -No Drug Therapy requiring intensive monitoring for toxicity (Heparin, Nitro, Insulin, Cardizem)? @ -No Were any procedures done? @ -No Diagnosis/symptom? @ -Influenza B, seizure Acute, or Chronic, or Acute on Chronic? @ -Acute Uncomplicated (without systemic symptoms) or Complicated (systemic symptoms)? @ -Uncomplicated Side effects of treatment? @ -No Exacerbation, Progression, or Severe Exacerbation? @ -No Poses a threat to life or bodily function? How? (Chest pain, [place], [place], pneumonia, PE, COPD, DKA, ARF, appy, cholecystitis, CVA, Diverticulitis, Homicidal, Suicidal, threat to staff... and all critical care pts) @ -No - Lab Data Result diagrams: 09/27/23 15:42 09/27/23 15:42 Lab Results 09/27/23 09/27/23 09/27/23 Range/Units 15:42 15:42 15:42 WBC 4.7 (3.8-10.6) k/uL RBC 4.92 (4.30-5.90) m/uL Hgb 15.9 (13.0-17.5) gm/dL Hct 46.2 (39.0-53.0) % MCV 93.9 (80.0-100.0) fL MCH 32.3 (25.0-35.0) pg MCHC 34.4 (31.0-37.0) g/dL RDW 13.5 (11.5-15.5) % Plt Count 130 L (150-450) k/uL MPV 9.7 Neutrophils % 74 % Lymphocytes % 14 % Monocytes % 9 % Eosinophils % 1 % Basophils % 1 % Neutrophils # 3.5 (1.3-7.7) k/uL Lymphocytes # 0.6 L (1.0-4.8) k/uL Monocytes # 0.4 (0-1.0) k/uL Eosinophils # 0.1 (0-0.7) k/uL Basophils # 0.0 (0-0.2) k/uL Sodium 134 L (137-145) mmol/L Potassium 4.2 (3.5-5.1) mmol/L Chloride 104 (98-107) mmol/L Carbon Dioxide 23 (22-30) mmol/L Anion Gap 7 mmol/L BUN 9 (9-20) mg/dL Creatinine 1.16 (0.66-1.25) mg/dL Est GFR (CKD-EPI)AfAm >90 (>60 ml/min/1.73 sqM) Est GFR (CKD-EPI)NonAf 81 (>60 ml/min/1.73 sqM) Glucose 90 (74-99) mg/dL Calcium 8.7 (8.4-10.2) mg/dL Magnesium 2.0 (1.6-2.3) mg/dL Total Bilirubin 0.6 (0.2-1.3) mg/dL AST 52 (17-59) U/L ALT 32 (4-49) U/L Alkaline Phosphatase 115 (38-126) U/L Total Protein 7.2 (6.3-8.2) g/dL Albumin 4.1 (3.5-5.0) g/dL Influenza Type A (PCR) Not Detected (Not Detectd) Influenza Type B (PCR) Detected A (Not Detectd) RSV (PCR) Not Detected (Not Detectd) SARS-CoV-2 (PCR) Not Detected (Not Detectd) - EKG Data -: EKG Interpreted by Sd EKG Comments: EKG performed at 15: 00 sinus rhythm rate of 85 KS 159 QRS 96 QT/QTc 338/380 Disposition Clinical Impression: Influenza B, Generalized seizure Disposition: HOME SELF-CARE Condition: Stable Instructions (If sedation given, give patient instructions): Recurrent Seizures in Adults (ED), Influenza (ED) Additional Instructions: Please return to the Emergency Department if symptoms worsen or any other concerns. Is patient prescribed a controlled substance at d/c from ED?: No Referrals: Mazin Jay MD [Primary Care Provider] - 1-2 days Time of Disposition: 17:07
[2023-09-27] MEDS: ACETAMINOPHEN TAB 500 MG TAB PO STA (15:44)
[2023-09-27] MEDS: SODIUM CHLORIDE 0.9% 1,000 ML IV STA (15:44)
[2023-09-27] MEDS: IBUPROFEN 600 MG TAB PO STA (15:45)
[2023-09-27 16:25] LABS: Basophils % (A) 1 %; Eosinophils # (A) 0.1 k/uL (0-0.7); Eosinophils % (A) 1 %; HCT 46.2 % (39.0-53.0); HGB 15.9 gm/dL (13.0-17.5); Lymphocytes # (A) 0.6 k/uL (1.0-4.8); Lymphocytes % (A) 14 %; MCH 32.3 pg (25.0-35.0); MCHC 34.4 g/dL (31.0-37.0); MCV 93.9 fL (80.0-100.0); Mean Platelet Volume 9.7; Monocytes # (A) 0.4 k/uL (0-1.0); Monocytes % (A) 9 %; Neutrophils # (A) 3.5 k/uL (1.3-7.7); Neutrophils % (A) 74 %; Platelet Count 130 k/uL (150-450); RBC 4.92 m/uL (4.30-5.90); RDW 13.5 % (11.5-15.5); WBC 4.7 k/uL (3.8-10.6)
[2023-09-27] MEDS: HYDROmorphone 0.5 MG/0.5 ML SYRINGE IVP STA (16:39)
[2023-09-27 16:41] LABS: ALT 32 U/L (4-49); AST 52 U/L (17-59); African American GFR (CKD) >90 (>60 ml/min/1.73 sqM); Albumin 4.1 g/dL (3.5-5.0); Alkaline Phosphatase 115 U/L (38-126); Anion Gap 7 mmol/L; Blood Urea Nitrogen 9 mg/dL (9-20); Calcium 8.7 mg/dL (8.4-10.2); Carbon Dioxide 23 mmol/L (22-30); Chloride 104 mmol/L (98-107); Glucose 90 mg/dL (74-99); Non-African American GFR(CKD) 81 (>60 ml/min/1.73 sqM); Sodium 134 mmol/L (137-145); Total Bilirubin 0.6 mg/dL (0.2-1.3); Total Protein 7.2 g/dL (6.3-8.2)
[2023-09-27 16:48] VITALS: RESP 17; TEMP 100.5
[2023-09-27 16:51] LABS: Potassium 4.2 mmol/L (3.5-5.1)
[2023-09-27 17:46] VITALS: BP 101/65; PULSE 72
== END 2023-09-27 17:41 | disposition home or self-care (01) ==
LOC: EC 14:44
DX: G40.409 Other generalized epilepsy and epileptic syndromes, not intractable, without status epilepticus (principal); J10.1 Influenza due to other identified influenza virus with other respiratory manifestations; J45.909 Unspecified asthma, uncomplicated; F17.200 Nicotine dependence, unspecified, uncomplicated; F12.90 Cannabis use, unspecified, uncomplicated; Z20.822 Contact with and (suspected) exposure to COVID-19; Z79.899 Other long term (current) drug therapy; Z88.8 Allergy status to other drugs, medicaments and biological substances; Z91.030 Bee allergy status
CPT/HCPCS: 36415; 93005; 80053; 83735; 85025; 87636; 99285; 96374; 96361; J1170

== ENCOUNTER 2024-06-26 08:47 | Emergency (ER) | payer MEDICARE ==
--- NOTE | 2024-06-26 09:02 | ED ---
General Adult HPI - General Chief complaint: Fall Stated complaint: Seizure Time Seen by Provider: 06/26/24 08:48 Source: patient, EMS, RN notes reviewed Mode of arrival: EMS Limitations: no limitations - History of Present Illness Initial comments: Patient is a 38-year-old male presenting to the emergency department with concern for seizures. Patient does have frequent seizures daily. Patient has history of previous head injury and surgery. Patient does see a neurologist and neurosurgeon out of [place]. Patient is currently on Lyrica, Vimpat, and xcopri. Patient has been taking his medications. Patient did have some increased seizures today and did strike his head. Patient did also strike his back however back discomfort has resolved. Patient states usually when he has increased seizures like this he gets a dose of Ativan or Valium that helps him out. - Related Data Home Medications Medication Instructions Recorded Confirmed Albuterol Sulfate [Ventolin HFA] 2 puff INHALATION RT-Q4H PRN 11/10/14 02/01/19 Lacosamide [Vimpat] 400 mg PO HS 01/19/18 02/01/19 Pregabalin [Lyrica] 300 mg PO TID 01/19/18 02/01/19 Onfi 20mg 20 mg PO BID 01/20/18 02/01/19 Beclomethasone Dipropionate [Qvar 40 mcg INHALATION RT-DAILY 02/01/19 02/01/19 40 mcg Redihaler] Lacosamide [Vimpat] 200 mg PO BID@0600,1200 02/01/19 02/01/19 Previous Rx's Medication Instructions Recorded Hydrocodone/Acetaminophen [[place] 1 tab PO Q8HR PRN 2 Days #6 tab 08/22/19 5-325] Amoxicillin 500 mg PO Q8H #30 capsule 09/11/22 Allergies Allergy/AdvReac Type Severity Reaction Status Date / Time bee pollen Allergy Anaphylaxis Verified 06/26/24 08:59 brivaracetam [From Briviact] Allergy Unknown Verified 06/26/24 08:59 levetiracetam [From Keppra] AdvReac anger Verified 06/26/24 08:59 Review of Systems ROS Statement: Those systems with pertinent positive or pertinent negative responses have been documented in the HPI. ROS Other: All systems not noted in ROS Statement are negative. Constitutional: Denies: fever Eyes: Denies: eye pain ENT: Denies: ear pain Respiratory: Denies: dyspnea Cardiovascular: Denies: chest pain Endocrine: Denies: fatigue Gastrointestinal: Denies: abdominal pain Neurological: Denies: weakness, confusion Past Medical History Past Medical History: Asthma, GERD/Reflux, Renal Disease, Seizure Disorder Additional Past Medical History / Comment(s): Nephrolithiasis, seizures History of Any Multi-Drug Resistant Organisms: MRSA Date of last positivie culture/infection: 2021 Past Surgical History: Ear Surgery Additional Past Surgical History / Comment(s): 10 BRAIN SURGERIES incuding implants and impulse procedures done at [facility], bilateral myringotomy/tubes. Past Anesthesia/Blood Transfusion Reactions: No Reported Reaction Past Psychological History: ADD/ADHD, Depression Smoking Status: Current every day smoker, Heavy tobacco smoker Past Alcohol Use History: None Reported, Rare Past Drug Use History: Marijuana - Past Family History Father Family Medical History: Myocardial Infarction ([place]) Additional Family Medical History / Comment(s): Father of a [place] at the age of 53 yrs. Mother Family Medical History: No Reported History General Exam Limitations: no limitations General appearance: alert, in no apparent distress Head exam: Present: other (Postsurgical changes. Cannot rule out soft tissue swelling posterior scalp) Eye exam: Present: normal appearance, PERRL, EOMI ENT exam: Present: normal oropharynx Neck exam: Present: normal inspection Respiratory exam: Present: normal lung sounds bilaterally Cardiovascular Exam: Present: regular rate, normal rhythm GI/Abdominal exam: Present: soft. Absent: tenderness Extremities exam: Present: normal inspection, full ROM Neurological exam: Present: alert, CN II-XII intact. Absent: motor sensory deficit Psychiatric exam: Present: normal affect, normal mood Skin exam: Present: normal color Course Vital Signs 06/26/24 06/26/24 06/26/24 08:49 09:18 10:48 Temperature 98.3 F Pulse Rate 86 74 71 Respiratory 17 17 16 Rate Blood Pressure 121/91 124/71 O2 Sat by Pulse 96 94 L 96 Oximetry EKG Findings - EKG Results: EKG: interpreted by ERMD, sinus rhythm, normal axis, normal QRS, normal ST/T Medical Decision Making - Medical Decision Making Was pt. sent in by a medical professional or institution (, PA, PACKER DENTURE, urgent care, hospital, or fdc...) When possible be specific @ -No Did you speak to anyone other than the patient for history (EMS, parent, family, police, friend...)? What history was obtained from this source @ -Mother arrives and adds additional history that patient did actually hit his head Did you review nursing and triage notes (agree or disagree)? Why? @ -I reviewed and agree with nursing and triage notes Were old charts reviewed (outside hosp., previous admission, EMS record, old EKG, old radiological studies, urgent care reports/EKG's, fdc records)? Report findings @ -Previous visits and charts and medications reviewed Differential Diagnosis (chest pain, altered mental status, abdominal pain women, abdominal pain men, vaginal bleeding, weakness, fever, dyspnea, syncope, headache, dizziness, GI bleed, back pain, seizure, CVA, palpatations, mental health, musculoskeletal)? @ -Differential Seizure: Recurrent seizure disorder, febrile seizure, alcohol withdrawal, stimulants, meningitis, encephalitis, intercranial hemorrhage, intracranial tumor, stroke, eclampsia, thyrotoxicosis, hypocalcemia, hyponatremia, hypernatremia, hypomagnesemia, psychogenic, this is not meant to be an all-inclusive list. EKG interpreted by me (3pts min.). @ -As above X-rays interpreted by me (1pt min.). @ -None done CT interpreted by me (1pt min.). @ -CT scan of the brain reveals postsurgical changes. No acute abnormality U/S interpreted by me (1pt. min.). @ -None done What testing was considered but not performed or refused? (CT, X-rays, U/S, labs)? Why? @ -None What meds were considered but not given or refused? Why? @ -None Did you discuss the management of the patient with other professionals (professionals i.e. , PA, PACKER DENTURE, lab, RT, psych nurse, social media executive, allied health professional, teacher, fisheries technical officer, case management rn)? Give summary @ -No Was smoking cessation discussed for >3mins.? @ -No Was critical care preformed (if so, how long)? @ -No Were there social determinants of health that impacted care today? How? (Homelessness, low income, unemployed, alcoholism, drug addiction, transporta tion, low edu. Level, literacy, decrease access to med. care, longterm, rehab)? @ -No Was there de-escalation of care discussed even if they declined (Discuss DNR or withdrawal of care, Hospice)? DNR status @ -No What co-morbidities impacted this encounter? (DM, HTN, Smoking, COPD, CAD, Cancer, CVA, ARF, Chemo, Hep., AIDS, mental health diagnosis, sleep apnea, morbid obesity)? @ -History of multiple recurrent seizures Was patient admitted / discharged? Hospital course, mention meds given and rout e, prescriptions, significant lab abnormalities, going to OR and other pertinent info. @ -Patient presents with increase in seizures. Patient evaluation unremarkable. Patient reevaluated and symptom-free. Patient and mother updated. Both would like to be discharged home, they have been updated Undiagnosed new problem with uncertain prognosis? @ -No Drug Therapy requiring intensive monitoring for toxicity (Heparin, Nitro, Insulin, Cardizem)? @ -No Were any procedures done? @ -No Diagnosis/symptom? @ -Recurrent seizures Acute, or Chronic, or Acute on Chronic? @ -Acute on chronic Uncomplicated (without systemic symptoms) or Complicated (systemic symptoms)? @ -Complicated with head injury Side effects of treatment? @ -No Exacerbation, Progression, or Severe Exacerbation? @ -No Poses a threat to life or bodily function? How? (Chest pain, [place], [place], pneumonia, PE, COPD, DKA, ARF, appy, cholecystitis, CVA, Diverticulitis, Homicidal, Suicidal, threat to staff... and all critical care pts) @ -Threat to neurological function - Lab Data Result diagrams: 06/26/24 09:00 06/26/24 09:04 Lab Results 06/26/24 06/26/24 Range/Units 09:00 09:04 WBC 17.9 H (3.8-10.6) k/uL RBC 5.15 (4.30-5.90) m/uL Hgb 16.7 (13.0-17.5) gm/dL Hct 50.9 (39.0-53.0) % MCV 98.8 (80.0-100.0) fL MCH 32.5 (25.0-35.0) pg MCHC 32.9 (31.0-37.0) g/dL RDW 13.3 (11.5-15.5) % Plt Count 236 (150-450) k/uL MPV 8.7 Neutrophils % 83 % Lymphocytes % 12 % Monocytes % 3 % Eosinophils % 1 % Basophils % 0 % Neutrophils # 14.8 H (1.3-7.7) k/uL Lymphocytes # 2.1 (1.0-4.8) k/uL Monocytes # 0.6 (0-1.0) k/uL Eosinophils # 0.2 (0-0.7) k/uL Basophils # 0.0 (0-0.2) k/uL Sodium 142 (137-145) mmol/L Potassium 4.8 (3.5-5.1) mmol/L Chloride 107 (98-107) mmol/L Carbon Dioxide 28 (22-30) mmol/L Anion Gap 7 mmol/L BUN 9 (9-20) mg/dL Creatinine 1.21 (0.66-1.25) mg/dL Est GFR (CKD-EPI)AfAm 88 (>60 ml/min/1.73 sqM) Est GFR (CKD-EPI)NonAf 76 (>60 ml/min/1.73 sqM) Glucose 107 H (74-99) mg/dL Calcium 9.6 (8.4-10.2) mg/dL Magnesium 2.2 (1.6-2.3) mg/dL Total Bilirubin 0.7 (0.2-1.3) mg/dL AST 62 H (17-59) U/L ALT 37 (4-49) U/L Alkaline Phosphatase 128 H (38-126) U/L Total Protein 8.3 H (6.3-8.2) g/dL Albumin 4.9 (3.5-5.0) g/dL Serum Alcohol <10 mg/dL Disposition Clinical Impression: Seizure disorder Disposition: HOME SELF-CARE Condition: Stable Instructions (If sedation given, give patient instructions): Recurrent Seizures in Adults (ED) Additional Instructions: Have your doctor follow-up with your Vimpat level. Please do follow-up with your primary care physician and neurologist in the next couple of days for recheck. Return for increased seizures, confusion, illness, weakness, worsening or changing symptoms or any other concerns. Is patient prescribed a controlled substance at d/c from ED?: No Referrals: Juan Ramon Sherwood MD [Primary Care Provider] - 1-2 days Time of Disposition: 10:52
[2024-06-26] MEDS: LORazepam 2 MG/ML INJ IV STA (09:08)
[2024-06-26 09:23] LABS: Basophils % (A) 0 %; Eosinophils # (A) 0.2 k/uL (0-0.7); Eosinophils % (A) 1 %; HCT 50.9 % (39.0-53.0); HGB 16.7 gm/dL (13.0-17.5); Lymphocytes # (A) 2.1 k/uL (1.0-4.8); Lymphocytes % (A) 12 %; MCH 32.5 pg (25.0-35.0); MCHC 32.9 g/dL (31.0-37.0); MCV 98.8 fL (80.0-100.0); Mean Platelet Volume 8.7; Monocytes # (A) 0.6 k/uL (0-1.0); Monocytes % (A) 3 %; Neutrophils # (A) 14.8 k/uL (1.3-7.7); Neutrophils % (A) 83 %; Platelet Count 236 k/uL (150-450); RBC 5.15 m/uL (4.30-5.90); RDW 13.3 % (11.5-15.5); WBC 17.9 k/uL (3.8-10.6)
[2024-06-26 09:44] LABS: ALT 37 U/L (4-49); African American GFR (CKD) 88 (>60 ml/min/1.73 sqM); Alcohol <10 mg/dL; Anion Gap 7 mmol/L; Blood Urea Nitrogen 9 mg/dL (9-20); Calcium 9.6 mg/dL (8.4-10.2); Carbon Dioxide 28 mmol/L (22-30); Chloride 107 mmol/L (98-107); Glucose 107 mg/dL (74-99); Non-African American GFR(CKD) 76 (>60 ml/min/1.73 sqM); Sodium 142 mmol/L (137-145); Total Bilirubin 0.7 mg/dL (0.2-1.3)
[2024-06-26 09:46] LABS: AST 62 U/L (17-59); Albumin 4.9 g/dL (3.5-5.0); Alkaline Phosphatase 128 U/L (38-126); Magnesium 2.2 mg/dL (1.6-2.3); Potassium 4.8 mmol/L (3.5-5.1); Total Protein 8.3 g/dL (6.3-8.2)
--- NOTE | 2024-06-26 10:30 | CT ---
EXAMINATION TYPE: CT brain wo con DATE OF EXAM: 06/26/2024 COMPARISON: 04/26/2023 CLINICAL INDICATION: Male, 38 years old with history of seizure activity; PHH, Seizure activity, hx b rain stimulator, multiple surgeries. Pos LOC. CT DLP: 1272.4 mGycm Automated exposure control for dose reduction was used. Findings: There are extensive postsurgical changes multiple craniotomy defects in at least 3 drainage catheters on the left. The ventricles are normal in size and there is no shift of midline structures. Exam is limited by str eak artifacts but there is no acute intra or extra-axial hemorrhage.. There is stable encephalomalaci a involving the left frontal white matter Intraorbital contents. Normal symmetric There is complete opacification of the right maxillary sinus. The mastoid air cells are well aerated. IMPRESSION: 1. Extensive postsurgical changes as described above. Stable Encephalomalacia of the left frontal whi te matter. 2. No mass effect or shift of midline structures. 3. No definite acute hemorrhage. 4. Stable Complete opacification of the right maxillary sinus. 5. No interval change [facility], , 06/26/2024 10:28 AM
[2024-06-26 11:21] VITALS: BP 103/57; PULSE 68; RESP 17; TEMP 98.2
== END 2024-06-26 11:25 | disposition home or self-care (01) ==
LOC: EC 08:47
DX: G40.909 Epilepsy, unspecified, not intractable, without status epilepticus (principal); F17.200 Nicotine dependence, unspecified, uncomplicated; Z91.030 Bee allergy status; Z88.8 Allergy status to other drugs, medicaments and biological substances
CPT/HCPCS: 36415; 93005; 80053; 83735; 85025; 70450; 99285; 96374; G0480; J2060; 80320

== ENCOUNTER 2024-10-26 19:35 | Emergency (ER) | payer MEDICARE, OTHER ==
[2024-10-26 19:51] VITALS: TEMP 98
--- NOTE | 2024-10-26 19:56 | ED ---
Chest Pain HPI - General Chief Complaint: Chest Pain Stated Complaint: Chest pain Time Seen by Provider: 10/26/24 19:55 Source: patient, EMS Mode of arrival: EMS Limitations: no limitations - History of Present Illness Initial Comments: 38-year-old male presenting with chief complaint of chest pain. Located on the left side of the chest. Started a few hours ago. Denies shortness of breath. States that is a sharp pain, worse with certain movements. No lower extremity pain. No cough congestion or sore throat. No fevers or chills. No nausea vomiting or abdominal pain. - Related Data Home Medications Medication Instructions Recorded Confirmed Albuterol Sulfate [Ventolin HFA] 2 puff INHALATION RT-Q4H PRN 11/10/14 02/01/19 Lacosamide [Vimpat] 400 mg PO HS 01/19/18 02/01/19 Pregabalin [Lyrica] 300 mg PO TID 01/19/18 02/01/19 Onfi 20mg 20 mg PO BID 01/20/18 02/01/19 Beclomethasone Dipropionate [Qvar 40 mcg INHALATION RT-DAILY 02/01/19 02/01/19 40 mcg Redihaler] Lacosamide [Vimpat] 200 mg PO BID@0600,1200 02/01/19 02/01/19 Previous Rx's Medication Instructions Recorded Hydrocodone/Acetaminophen [[place] 1 tab PO Q8HR PRN 2 Days #6 tab 08/22/19 5-325] Amoxicillin 500 mg PO Q8H #30 capsule 09/11/22 Allergies Allergy/AdvReac Type Severity Reaction Status Date / Time bee pollen Allergy Anaphylaxis Verified 10/26/24 19:48 brivaracetam [From Briviact] Allergy Unknown Verified 10/26/24 19:48 levetiracetam [From Keppra] AdvReac anger Verified 10/26/24 19:48 Review of Systems ROS Statement: Those systems with pertinent positive or pertinent negative responses have been documented in the HPI. ROS Other: All systems not noted in ROS Statement are negative. Past Medical History Past Medical History: Asthma, GERD/Reflux, Renal Disease, Seizure Disorder Additional Past Medical History / Comment(s): Nephrolithiasis, seizures History of Any Multi-Drug Resistant Organisms: MRSA Date of last positivie culture/infection: 2021 Past Surgical History: Ear Surgery Additional Past Surgical History / Comment(s): 11 BRAIN SURGERIES incuding implants and impulse procedures done at [facility], bilateral myringotomy/tubes. Past Anesthesia/Blood Transfusion Reactions: No Reported Reaction Past Psychological History: ADD/ADHD, Depression Smoking Status: Current every day smoker, Heavy tobacco smoker Past Alcohol Use History: None Reported Past Drug Use History: Marijuana - Past Family History Father Family Medical History: Myocardial Infarction ([place]) Additional Family Medical History / Comment(s): Father of a [place] at the age of 53 yrs. Mother Family Medical History: No Reported History General Exam - General Exam Comments Initial Comments: Visual Physical Exam Vital signs reviewed General: Well-appearing, nontoxic, no acute distress. Head: Normocephalic, atraumatic Eyes: PERRLA, EOMI ENT: Airway patent Chest: Nonlabored breathing Skin: No visual rash, normal skin tone Neuro: Alert and oriented 3 Musculoskeletal: No gross abnormalities Limitations: no limitations General appearance: alert, in no apparent distress Head exam: Present: atraumatic, normocephalic, normal inspection Eye exam: Present: normal appearance, EOMI Neck exam: Present: normal inspection. Absent: meningismus Respiratory exam: Present: normal lung sounds bilaterally. Absent: respiratory distress, wheezes, rales, rhonchi, stridor Cardiovascular Exam: Present: regular rate, normal rhythm, normal heart sounds. Absent: systolic murmur, diastolic murmur, rubs, gallop, clicks Neurological exam: Present: alert, oriented X3 Psychiatric exam: Present: normal affect, normal mood Skin exam: Present: normal color Course Vital Signs 10/26/24 10/26/24 10/26/24 19:48 20:55 22:22 Temperature 98.0 F Pulse Rate 69 69 Respiratory 18 18 10 L Rate Blood Pressure 97/68 99/59 O2 Sat by Pulse 94 L 96 Oximetry 10/26/24 10/26/24 22:44 23:14 Temperature Pulse Rate 61 Respiratory 12 15 Rate Blood Pressure 110/68 O2 Sat by Pulse 98 Oximetry Chest Pain MDM - MDM I performed the quick note portion of this visit, electronically signed Cameron Murray PA-C Was pt. sent in by a medical professional or institution (, [facility], [employer], urgent care, hospital, or snf...) When possible be specific @ -No Did you speak to anyone other than the patient for history (EMS, parent, family, police, friend...)? What history was obtained from this source @ -No Did you review nursing and triage notes (agree or disagree)? Why? @ -I reviewed and agree with nursing and triage notes Were old charts reviewed (outside hosp., previous admission, EMS record, old EKG, old radiological studies, urgent care reports/EKG's, snf records)? Report findings @ -No old charts were reviewed Differential Diagnosis (chest pain, altered mental status, abdominal pain women, abdominal pain men, vaginal bleeding, weakness, fever, dyspnea, syncope, headache, dizziness, GI bleed, back pain, seizure, CVA, palpatations, mental health, musculoskeletal)? @ -MDM Differential Chest Pain: Stable Angina, Unstable Angina, STEMI, NSTEMI Aortic Dissection, Pneumothorax, Musculoskeletal, Esophageal Spasm GERD, Cholecystitis, Pancreatitis, Zoster This is not meant to be an all-inclusive list. EKG interpreted by me (3pts min.). @ -EKG shows sinus rhythm ventricular rate 63. MS interval 157. QRS 101. QT 400. QTc 408 X-rays interpreted by me (1pt min.). @ -Chest x-ray shows no acute cardiopulmonary disease/process CT interpreted by me (1pt min.). @ -None done U/S interpreted by me (1pt. min.). @ -None done What testing was considered but not performed or refused? (CT, X-rays, U/S, labs)? Why? @ -None What meds were considered but not given or refused? Why? @ -None Did you discuss the management of the patient with other professionals (professionals i.e. , PA, [employer], lab, RT, psych nurse, certified social workers in health care, instrumentation chemist, teacher, press officer, family caseworker)? Give summary @ -No Was smoking cessation discussed for >3mins.? @ -No Was critical care preformed (if so, how long)? @ -No Were there social determinants of health that impacted care today? How? (Homelessness, low income, unemployed, alcoholism, drug addiction, transportation, low edu. Level, literacy, decrease access to med. care, [facility], rehab)? @ -No Was there de-escalation of care discussed even if they declined (Discuss DNR or withdrawal of care, Hospice)? DNR status @ -No What co-morbidities impacted this encounter? (DM, HTN, Smoking, COPD, CAD, Cancer, CVA, ARF, Chemo, Hep., AIDS, mental health diagnosis, sleep apnea, morbid obesity)? @ -None Was patient admitted / discharged? Hospital course, mention meds given and route, prescriptions, significant lab abnormalities, going to OR and other pertinent info. @ -38-year-old male presenting with chief complaint of chest pain. History and physical examination are conducted. EKG shows sinus rhythm with no acute ischemic changes. Negative troponin. Chest x-ray shows no acute process. While here in the ER the patient became groggy after initial assessment. Urine toxicology was obtained which was positive for opiates, benzodiazepines, and marijuana. Patient was treated with a total of 1.4 mg of Narcan IV. Patient's vitals are stable. He has a normal respiratory pattern. He is still sleepy but he is stable. Patient's heart score is 1 given family history of heart disease and cigarette smoking. Patient can safely follow-up outpatient regarding his complaints today. He has a family member who will come to pick him up. Follow- up with PCP. Report back to ER with any new or worsening symptoms. Discussed return parameters and answered all questions. Patient conveyed verbal understanding and agreed to the plan. I discussed this case in detail with my attending Dr. Maier Undiagnosed new problem with uncertain prognosis? @ -No Drug Therapy requiring intensive monitoring for toxicity (Heparin, Nitro, Insulin, Cardizem)? @ -No Were any procedures done? @ -No Diagnosis/symptom? @ -Atypical chest pain Acute, or Chronic, or Acute on Chronic? @ -Acute Uncomplicated (without systemic symptoms) or Complicated (systemic symptoms)? @ -Uncomplicated Side effects of treatment? @ -No Exacerbation, Progression, or Severe Exacerbation? @ -No Poses a threat to life or bodily function? How? (Chest pain, [place], [place], pneumonia, PE, COPD, DKA, ARF, appy, cholecystitis, CVA, Diverticulitis, Homicidal, Suicidal, threat to staff... and all critical care pts) @ -Low likelihood Disposition Clinical Impression: Atypical chest pain Disposition: HOME SELF-CARE Condition: Good Instructions (If sedation given, give patient instructions): Chest Pain (ED) Additional Instructions: Follow-up with your PCP. Follow-up with cardiology. Report back to ER with any new or worsening symptoms. Is patient prescribed a controlled substance at d/c from ED?: No Referrals: Juan Ramon Sherwood MD [Primary Care Provider] - 1-2 days Black Rivera MD [STAFF PHYSICIAN] - 1-2 days Time of Disposition: 23:13
[2024-10-26 20:37] LABS: Basophils # (A) 0.1 k/uL (0-0.2); Basophils % (A) 1 %; Eosinophils # (A) 0.3 k/uL (0-0.7); Eosinophils % (A) 3 %; HCT 44.3 % (39.0-53.0); HGB 14.7 gm/dL (13.0-17.5); Lymphocytes % (A) 26 %; MCH 31.4 pg (25.0-35.0); MCHC 33.2 g/dL (31.0-37.0); MCV 94.6 fL (80.0-100.0); Mean Platelet Volume 8.8; Monocytes # (A) 0.7 k/uL (0-1.0); Monocytes % (A) 7 %; Neutrophils # (A) 7.1 k/uL (1.3-7.7); Neutrophils % (A) 62 %; Platelet Count 273 k/uL (150-450); RBC 4.69 m/uL (4.30-5.90); RDW 13.5 % (11.5-15.5); WBC 11.4 k/uL (3.8-10.6)
[2024-10-26 20:48] LABS: Partial Thromboplastin Time 26.8 sec (22.0-30.0); Prothrombin Time 11.4 sec (10.0-12.5)
[2024-10-26 20:51] LABS: ALT 28 U/L (4-49); AST 32 U/L (17-59); African American GFR (CKD) >90 (>60 ml/min/1.73 sqM); Albumin 4.1 g/dL (3.5-5.0); Alkaline Phosphatase 102 U/L (38-126); Anion Gap 9 mmol/L; Blood Urea Nitrogen 7 mg/dL (9-20); Calcium 8.9 mg/dL (8.4-10.2); Carbon Dioxide 27 mmol/L (22-30); Chloride 100 mmol/L (98-107); Glucose 103 mg/dL (74-99); Magnesium 2.5 mg/dL (1.6-2.3); Non-African American GFR(CKD) 85 (>60 ml/min/1.73 sqM); Potassium 3.5 mmol/L (3.5-5.1); Sodium 136 mmol/L (137-145); Total Bilirubin 0.4 mg/dL (0.2-1.3); Total Protein 6.9 g/dL (6.3-8.2)
--- NOTE | 2024-10-26 21:02 | XR ---
EXAMINATION TYPE: XR chest 2V DATE OF EXAM: 10/26/2024 8:42 PM COMPARISON: Chest radiographs from 09/11/2022 CLINICAL INDICATION: Male, 38 years old with history of Chest Pain; [facility] TECHNI[facility]: XR chest 2V Frontal and lateral views of the chest. FINDINGS: Lungs/Pleura: There is no evidence of pleural effusion, focal consolidation, or pneumothorax. Pulmonary vascularity: Unremarkable. Heart/mediastinum: Cardiomediastinal silhouette is unremarkable. Musculoskeletal: No acute osseous pathology. IMPRESSION: No acute cardiopulmonary disease/process. [facility], , 10/26/2024 9:00 PM
[2024-10-26] MEDS: SODIUM CHLORIDE 0.9% 1,000 ML IV ONE (21:26)
[2024-10-26 22:09] LABS: Amphetamine Screen,Urine Not Detected (NotDetected); Barbiturate Screen,Urine Not Detected (NotDetected); Benzodiazepines Screen,Urine Detected (NotDetected); Cocaine Screen,Urine Not Detected (NotDetected); Methadone Screen, Urine Not Detected (NotDetected); Opiate Screen,Urine Detected (NotDetected); Oxycodone Screen, Urine Not Detected (NotDetected); Phencyclidine Screen,Urine Not Detected (NotDetected); Tricyclic Antidepressant,Urine Not Detected (NotDetected); Urn Cannabinoid Scrn Detected (NotDetected)
[2024-10-26] MEDS: NALOXONE 0.4 MG/ML 1 ML VIAL IVP STA ×2 (22:22→22:44)
[2024-10-26 23:14] VITALS: BP 110/68; PULSE 61; RESP 15
== END 2024-10-26 23:20 | disposition home or self-care (01) ==
LOC: EC 19:35
DX: R07.89 Other chest pain (principal); F17.200 Nicotine dependence, unspecified, uncomplicated; Z91.030 Bee allergy status; Z88.8 Allergy status to other drugs, medicaments and biological substances
CPT/HCPCS: 36415; 93005; 80053; 83735; 84484; 85025; 85610; 85730; 80306; 71046; 99285; 96374; 96375; 96361; J2310